=== PATIENT | female | born 1935 | race Caucasian/White ===

== ENCOUNTER 2020-10-12 18:56 | Emergency (ER) | payer MEDICARE, SELFPAY ==
[2020-10-12 19:17] VITALS: BP 120/96; PULSE 93; RESP 26; TEMP 36.6; O2SAT 96
--- NOTE | 2020-10-12 19:31 | ED.GENADULT ---
HPI - General Adult General Chief complaint: Wound/Laceration Stated complaint: chest pain Time Seen by Provider: 10/12/20 19:10 Source: patient Mode of arrival: ambulatory Limitations: no limitations History of Present Illness HPI narrative: 85-year-old [facility] of [facility] and chest pain. Patient notes that she has shingles and over the last day or so had a rash develop. Patient was seen at an outside facility for chest pain, now likely due to the shingles. Patient was worked up and evaluated and discharged. She even notes that when she was in the ambulance she started to develop itching. Patient states while at home the rash did develop and that is when she came in here to be seen again. Related Data Home Medications Medication Instructions Recorded Confirmed albuterol sulfate INHALATION 10/12/20 10/12/20 atorvastatin 10/12/20 glimepiride mg 10/12/20 lorazepam 10/12/20 omeprazole 10/12/20 triamcinolone acetonide applic TOPICAL 10/12/20 Allergies Allergy/AdvReac Type Severity Reaction Status Date / Time ibuprofen Allergy Severe Nausea and Unverified 10/12/20 19:54 Vomiting codeine Allergy Unknown Other Verified 10/12/20 19:54 Review of Systems Review of Systems: Narrative: CONSTITUTIONAL: Denies fever, chills, or sweats. EYES: Denies visual changes, redness, or discharge. ENT: Denies rhinorrhea, congestion, sore throat, or otalgia. CARDIOVASCULAR: Denies chest pain, palpitations, or edema. RESPIRATORY: Denies cough or dyspnea. GASTROINTESTINAL: Denies abdominal pain, nausea, vomiting, or diarrhea. GENITOURINARY: Denies dysuria or hematuria. SKIN: Positive for vesicular rash. MUSCULOSKELETAL: Denies back pain, joint pain, or myalgia. NEUROLOGIC: Denies headache, numbness, dizziness, or weakness. PSYCHIATRIC: Denies anxiety or depression. [facility] Family History Family History Mother Hypertension Family history of diabetes mellitus in first degree relative Father Family history of coronary artery disease Sibling Family history of malignant neoplasm of breast in first degree relative Social History Social History Smoking status: Never smoker Alcohol intake: current Exam Narrative: Exam Narrative: GENERAL: Well-appearing, well-nourished, and in no acute distress. HEAD: Normocephalic, atraumatic. EYES: PERRLA and EOMI. ENT: Nares clear, no rhinorrhea or epistaxis. Mucous membranes moist. Oropharynx without tonsillar hypertrophy exudate or other lesions. Bilateral TMs pearly vivas nonbulging NECK: Supple. No adenopathy or masses. No carotid bruits or JVD CHEST: Clear to auscultation. No respiratory distress. No wheezes rales or rhonchi. Vesicular rash noted over the right breast. HEART: Regular rate and rhythm. No murmur heard. Normal peripheral pulses. ABDOMEN: Soft, nontender, nondistended, normal active bowel sounds. EXTREMITIES: Normal range of motion. No edema. SKIN: Warm, dry, no rash. Vesicular rash over the right mid back and right breast NEURO: No focal deficits. Alert and oriented x3. PSYCH: Normal mood and affect. Course Vital Signs Vital signs: Vital Signs Temperature 36.6 C 10/12/20 19:17 Pulse Rate 93 10/12/20 19:17 Respiratory Rate 26 H 10/12/20 19:17 Blood Pressure 120/96 H 10/12/20 19:17 Pulse Oximetry 96 10/12/20 19:17 Temperature 36.6 C 10/12/20 19:17 Pulse Rate 93 10/12/20 19:17 Respiratory Rate 26 H 10/12/20 19:17 Blood Pressure 120/96 H 10/12/20 19:17 Pulse Oximetry 96 10/12/20 19:17 Medical Decision Making [facility] Narrative Medical decision making narrative: In brief this is an 85-year-old female who presented to the emergency department with complaints of rash and severe pain. Rashes consistent with shingles. Patient given symptomatic medications. She will be given
[2020-10-12] MEDS: oxyCODONE/ACETAMINOPHEN (*CRX) 5-325 MG TABLET 1 TABLET PO (19:35)
[2020-10-12] MEDS: predniSONE 20 MG TABLET 40 MG PO (19:35)
[2020-10-12] MEDS: GABAPENTIN 300 MG CAPSULE PO (19:54)
[2020-10-12] MEDS: valACYclovir HCL 500 MG TABLET 1000 MG PO (19:54)
== END 2020-10-12 20:20 | disposition home or self-care (01) ==
PROVIDERS: Emergency Provider Emergency Medicine; PCP Internal Medicine
DX: B02.9 Zoster without complications (principal)
CPT/HCPCS: 99283; A9270; J7512

== ENCOUNTER 2020-10-30 10:46 | Emergency (ER) | payer MEDICARE, SELFPAY ==
[2020-10-30] VITALS (28 sets, daily range): BP systolic 113–249; BP diastolic 66–123; PULSE 54–79; RESP 10–22; TEMP 36.7; O2SAT 95–99
--- NOTE | ~2020-10-30 | XR_ITS ---
EXAMINATION: XR chest 1V portable INDICATION: Chest pain, shingles TECHNIQUE: Portable AP chest at 1128 hours COMPARISON: 05/09/2013 FINDINGS: There are minimal airspace opacities of the lung bases. No pleural effusion or pneumothorax is identified. The cardiomediastinal silhouette is normal. There is mild osteoarthritis of the shoul ders. IMPRESSION: 1. Bibasilar airspace opacities, consistent with atelectasis versus pneumonia. Reviewed, dictated and finalized at location A. E TECHNICIAN
--- NOTE | 2020-10-30 10:58 | PC.NURSE ---
patient arrives to er with daughter crying and yelling that she is in pain from shingles. was seen here a few weeks ago for same and given gabapentin, norco and valtrex. patient reports that she took all medications and is still in pain like someone is stabbing me daughter became hostile and states that they will not leave until patient is better
[2020-10-30 11:23] LABS: Basophils Absolute Auto 0.1 K/mm3 (0.0-0.1); Basophils Percent Auto 0.7 % (0.2-1.2); Eosinophils Absolute Auto 0.1 K/mm3 (0-0.3); Eosinophils Percent Auto 0.7 % (0-4.4); Immature Granulocyte Absolute 0.02 K/mm3 (0.00-0.031); Immature Granulocyte Percent A 0.3 % (0-0.5); Lymphocytes Absolute Auto 2.83 K/mm3 (0.9-3.2); Lymphocytes Percent Auto 41.3 % (18.3-44.2); Mean Corpuscular HGB Conc 34.7 g/dl (32-36); Mean Corpuscular Volume 92.1 fl (80-100); Mean Platelet Volume 9.9 fl (7.4-10.4); Monocytes Absolute Auto 0.5 K/mm3 (0.1-0.6); Monocytes Percent Auto 7.6 % (2.6-8.5); Neutrophils Absolute Auto 3.4 K/mm3 (1.3-6.7); Neutrophils Percent Auto 49.4 % (45.5-73.1); Platelet Count Result 234 k/mm3 (150-375); Red Blood Count 5.32 M/mm3 (4.2-5.4); Red Cell Distribution Width 14.8 % (11.5-14.5); White Blood Count 6.9 K/mm3 (4.5-10.0)
[2020-10-30] MEDS: diazePAM INJ (*CRX) 10 MG/2 ML SYRINGE 5 MG IV PUSH (11:31)
[2020-10-30] MEDS: SODIUM CHLORIDE 0.9% IV 1,000 ML 999 ML IV CONT ×2 (11:32→13:40)
[2020-10-30 11:35] LABS: Anion Gap 7 mmol/L (8-16); Blood Urea Nitrogen 18 mg/dL (7-17); Calcium 9.3 mg/dL (8.4-10.2); Carbon Dioxide 30 mmol/L (22-30); Chloride 98 mmol/L (98-107); Estimated CRCL calculation 51 ml/min; Estimated Glomerular Filt Rate > 60; Glucose 253 mg/dL (65-105); Potassium 4.2 mmol/L (3.4-5.0); Sodium 135 mmol/L (137-145)
[2020-10-30 12:23] LABS: Hemoglobin A1C 8.5 % (<5.7)
[2020-10-30] MEDS: LIDOCAINE 5% PATCH 1 PATCH TRANSDERM (12:58)
[2020-10-30 13:04] LABS: Add Urine Microscopic? YES; Appearance Urine Clear (Clear); Bilirubin Urine Negative (Negative); Blood Urine Negative (Negative); Color Urine Yellow (Yellow); Glucose Urine UA Negative (Negative); Ketones Urine Negative (Negative); Leukocyte Esterase Ur Negative LEU/UL (Negative); Mucus Urine Rare /lpf; Nitrate Urine Negative (Negative); Protein Urine 1+ mg/dL (Negative); RBC Urine 0-2 /hpf (0-2); Squamous Epithelial Cell Urine Occasional /hpf (Few); WBC Urine 0-3 /hpf
[2020-10-30 13:17] LABS: Specific Grav Ur 1.031 (1.001-1.035)
[2020-10-30] MEDS: KETOROLAC 15 MG/ML VIAL (*BKC) 10 MG IV PUSH (13:39)
--- NOTE | 2020-10-30 13:45 | ED.GENADULT ---
HPI - General Adult General Chief complaint: Wound/Laceration Stated complaint: SHINGLE PAIN Time Seen by Provider: 10/30/20 10:52 Source: patient, family and old records reviewed Mode of arrival: ambulatory Limitations: no limitations History of Present Illness HPI narrative: Patient is an 85-year-old female who presents to emergency department for evaluation of intensifying pain to the right breast and right thoracic region where she had shingles which is beginning to resolve with scabbed over areas at this time in the last 2 days the pain is intensified to a sharp burning constant pain patient has been taking hydrocodone but notes that it is not helping at this time. Patient denies other complaints or illness patient notes that her medications at home consist of aspirin that she takes once weekly Related Data Home Medications Medication Instructions Recorded Confirmed albuterol sulfate INHALATION 10/12/20 10/12/20 atorvastatin 10/12/20 glimepiride mg 10/12/20 lorazepam 10/12/20 omeprazole 10/12/20 triamcinolone acetonide applic TOPICAL 10/12/20 Allergies Allergy/AdvReac Type Severity Reaction Status Date / Time ibuprofen Allergy Severe Nausea and Unverified 10/30/20 11:03 Vomiting codeine Allergy Unknown Other Verified 10/30/20 11:03 Review of Systems Review of Systems: All systems reviewed & are unremarkable except as noted in HPI and below PMFSH Past Medical History Medical History (Updated 10/30/20 @ 15:37 by Kai Logan PA-C) Diabetes mellitus Obesity Shingles Family History Family History Mother Hypertension Family history of diabetes mellitus in first degree relative Father Family history of coronary artery disease Sibling Family history of malignant neoplasm of breast in first degree relative Social History Social History Smoking status: Never smoker Alcohol intake: current Exam Narrative: Exam Narrative: GENERAL: Well-appearing, obese, and uncomfortable in no acute distress. HEAD: Normocephalic, atraumatic. EYES: PERRLA and EOMI. ENT: Nares clear, no rhinorrhea or epistaxis. Mucous membranes moist. CHEST: Clear to auscultation. No respiratory distress. No wheezes rales or rhonchi HEART: Regular rate and rhythm. No murmur heard. Normal peripheral pulses. ABDOMEN: Soft, nontender, nondistended, normal active bowel sounds. EXTREMITIES: Normal range of motion. No edema. SKIN: Warm, dry, no rash. Resolving shingles rash to the right breast and upper thoracic region with some scabbed over lesions no cellulitic changes or other concerning findings at this time NEURO: No focal deficits. Alert and oriented x3. PSYCH: Normal mood and affect. Course Course Emergency Course: Patient evaluated in the emergency department was hydrated and given medications with drastic improvement in discomfort patient will be sent home with instructions for continued pain management advised to be compliant with her medications to follow with primary care on Sunday family will help facilitate this Vital Signs Vital signs: Vital Signs Temperature 98.0 F 10/30/20 10:52 Pulse Rate 79 10/30/20 10:52 Respiratory Rate 18 10/30/20 10:52 Blood Pressure 145/100 H 10/30/20 10:52 Pulse Oximetry 99 10/30/20 10:52 Temperature 98.0 F 10/30/20 10:52 Pulse Rate 76 10/30/20 15:30 Respiratory Rate 18 10/30/20 15:30 Blood Pressure 116/66 10/30/20 15:16 Pulse Oximetry 96 10/30/20 15:30 Medical Decision Making [facility] Narrative Medical decision making narrative: Patient with symptoms likely attributed to postherpetic neuralgia pain syndrome patient will be sent home with additional medications advised to continue her medications ABCs and vital signs intact and stable patient was given pain medication hydration and antihypertensive in the emergency department with im
[2020-10-30] MEDS: hydrALAZINE HCL 20 MG/ML VIAL 10 MG IV PUSH (15:15)
[2020-10-31 17:17] LABS: SARS-CoV-2 RNA PCR Negative
== END 2020-10-30 15:50 | disposition home or self-care (01) ==
PROVIDERS: Emergency Medicine Emergency Medical Services; Emergency Provider Family Medicine; PCP Internal Medicine
DX: B02.9 Zoster without complications (principal); Z20.822 Contact with and (suspected) exposure to COVID-19; E11.9 Type 2 diabetes mellitus without complications; E66.9 Obesity, unspecified; Z68.32 Body mass index [BMI] 32.0-32.9, adult
CPT/HCPCS: 36415; 51701; 71045; 80048; 81001; 83036; 85025; 96361; 96365; 96375; 99284; A9270; C9803; J0131; J0360; J1885; J3360; J7030; U0003; U0005

== ENCOUNTER 2022-11-24 08:26 | Outpatient (CLI) | payer MEDICARE, SELFPAY ==
--- NOTE | ~2022-11-24 | CT_ITS ---
EXAMINATION: CT abdomen pelvis wo con DATE: 11/24/2022 08:51 INDICATION: Abdominal pain TECHNIQUE: Computed tomography (CT) of the abdomen and pelvis was performed without intravenous contr ast. The dose-length product (DLP) was 706.58 mGy-cm. Automated exposure control and iterative recons truction technique were employed. COMPARISON: None FINDINGS: Minimal dependent atelectasis is present in the lung bases. The heart size is normal. There is calcified coronary artery atherosclerosis. The gallbladder is surgically absent. The liver, splee n, and adrenal glands are normal. There is moderate atrophy of the pancreas. The right kidney is unre markable. There is a 5 mm cyst of the left kidney. There is calcified atherosclerosis of the aorta an d many of the other arteries. No pathologically enlarged abdominal or pelvic lymph nodes are identifi ed. No free intraperitoneal gas or evidence of bowel obstruction. There is mild lumbar spondylosis. IMPRESSION: 1. No CT correlate for the patient's symptoms. Reviewed, dictated and finalized at location B. ORKING SPECIALIST
== END 2022-11-24 08:27 ==
LOC: MICIMG 08:27
PROVIDERS: PCP Internal Medicine; Visit Provider Internal Medicine
DX: R10.9 Unspecified abdominal pain (principal)
CPT/HCPCS: 74176

== ENCOUNTER 2023-02-06 11:36 | Outpatient (CLI) | payer MEDICARE, SELFPAY ==
--- NOTE | ~2023-02-06 | CT_ITS ---
EXAMINATION: CT brain wo con DATE: 02/06/2023 12:00 INDICATION: Headache, unspecified. TECHNIQUE: Computed tomography (CT) of the head was performed without intravenous contrast. The mA wa s adjusted according to patient size. Iterative reconstruction technique was employed. The dose-lengt h product was 599.57 mGy-cm. COMPARISON: None FINDINGS: There is no intracranial hemorrhage, acute infarction, or abnormal intracranial mass lesion . The ventricles are normal in size. There are likely changes of ocular lens replacement surgeries. T he paranasal sinuses are clear. The mastoid air cells are normal. IMPRESSION: 1. Normal brain. Reviewed, dictated and finalized at location A. IMPRESSION: 1. Normal brain.
== END 2023-02-06 11:37 ==
LOC: MICIMG 11:37
PROVIDERS: PCP Internal Medicine; Visit Provider Internal Medicine
DX: R51.9 Headache, unspecified (principal)
CPT/HCPCS: 70450

== ENCOUNTER 2023-09-29 10:53 | Emergency (ER) | payer MEDICARE, SELFPAY ==
[2023-09-29] VITALS (22 sets, daily range): BP systolic 151–184; BP diastolic 79–117; PULSE 72–93; RESP 13–16; TEMP 36.3; O2SAT 92–99
--- NOTE | ~2023-09-29 | CT_ITS ---
EXAMINATION: CT abdomen pelvis w con DATE: 09/29/2023 15:55 INDICATION: Dizziness. Nausea and vomiting. Elevated liver function tests. TECHNIQUE: Computed tomography (CT) of the abdomen and pelvis was performed with 100 cc Omnipaque 350 intravenous contrast. The dose-length product was 1177.69 mGy-cm. Automated exposure control and ite rative reconstruction technique were employed. COMPARISON: CT dated 11/24/2022 FINDINGS: There is dependent atelectasis. Cardiomegaly. No significant pleural or pericardial effusio n. There are multiple cystic masses of the pancreatic body and tail, largest measuring 2.3 cm. Status post cholecystectomy. The liver, spleen, adrenal glands are unremarkable. There is bilateral r enal atrophy. There is a small subcentimeter cyst of the left kidney. There is atherosclerosis of the aorta without aneurysm. No lymphadenopathy. Nonobstructive bowel pattern. Moderate lower thoracic an d lumbar spondylosis. IMPRESSION: 1. 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 The differential diagnosis includes pseudo cyst, intraductal papillary mucinous neoplasm (IPMN), mucinous cystic neoplasm (MCN), metastatic dise ase and the less common serous cystadenoma and neuroendocrine tumor. Reviewed, dictated and finalized at location A. T SYSTEM DIRECTOR IMPRESSION: 1. 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 The differential tato gnosis includes pseudocyst, intraductal papillary mucinous neoplasm (IPMN), muc inous cystic neoplasm (MCN), metastatic disease and the less common serous cyst adenoma and neuroendocrine tumor.
--- NOTE | ~2023-09-29 | CT_ITS ---
EXAMINATION: CT brain wo con DATE: 09/29/2023 15:55 INDICATION: Dizziness. TECHNIQUE: Computed tomography (CT) of the head was performed without intravenous contrast. The dose- length product was 529.67 mGy-cm. Automated exposure control and iterative reconstruction technique w ere employed. COMPARISON: CT dated 02/06/2023 FINDINGS: Mild generalized atrophy. There are scattered mild periventricular and subcortical white ma tter changes, most likely related to small vessel ischemic disease (microangiopathy). No acute intrac ranial hemorrhage, infarction, mass or mass effect. No ventriculomegaly or midline shift basilar cist erns are patent. IMPRESSION: 1. No acute intracranial abnormality. Reviewed, dictated and finalized at location A. CELL SYSTEMS ENGINEER
--- NOTE | 2023-09-29 11:23 | ECG_ITS ---
Measurements Intervals [place] Rate: 75 P: 82 [place]: 275 QRS: -36 QRSD: 93 T: -82 QT: 378 QTc: 423 Interpretive Statements ELECTRONIC ATRIAL PACEMAKER MARKED LEFT AXIS DEVIATION [QRS AXIS < -30] LEFT VENTRICULAR HYPERTROPHY AND ST-T CHANGE [VOLTAGE CRITERIA PLUS ST/T ABNORMALITY] DIFFUSE T-WAVE INVERSION ANTERIORLY LATERALLY AND INFERIORLY, CONSIDER ISCHEMIA NO PREVIOUS ECG AVAILABLE FOR COMPARISON Electronically Signed On 09-29-2023 19:51:39 DIRECTOR OF VOCATIONAL TRAINING by Jacy Moody M.D.
[2023-09-29 11:42] LABS: Basophils Absolute Auto 0.1 K/mm3 (0.0-0.1); Basophils Percent Auto 0.7 % (0.2-1.2); Eosinophils Absolute Auto 0.2 K/mm3 (0-0.3); Eosinophils Percent Auto 2.3 % (0-4.4); Hematocrit 45.7 % (37.0-47.0); Hemoglobin 14.7 g/dL (12.0-15.0); Immature Granulocyte Absolute 0.02 K/mm3 (0.00-0.031); Immature Granulocyte Percent A 0.3 % (0-0.5); Lymphocytes Absolute Auto 2.89 K/mm3 (0.9-3.2); Lymphocytes Percent Auto 39.9 % (18.3-44.2); Mean Corpuscular HGB Conc 32.2 g/dl (32-36); Mean Corpuscular Hemoglobin 30.3 pg (26-34); Mean Corpuscular Volume 94.2 fl (80-100); Monocytes Absolute Auto 0.5 K/mm3 (0.1-0.6); Monocytes Percent Auto 7.3 % (2.6-8.5); Neutrophils Absolute Auto 3.6 K/mm3 (1.3-6.7); Neutrophils Percent Auto 49.5 % (45.5-73.1); Platelet Count Result 223 k/mm3 (150-375); Red Blood Count 4.85 M/mm3 (4.2-5.4); Red Cell Distribution Width 13.3 % (11.5-14.5); White Blood Count 7.2 K/mm3 (4.5-10.0)
[2023-09-29 11:56] LABS: Alanine Aminotransferase 37 U/L (6-35); Albumin Level 4.1 g/dL (3.5-5.1); Alkaline Phosphatase 145 U/L (38-126); Anion Gap 8 mmol/L (8-16); Aspartate Amino Transferase 48 U/L (14-36); Bilirubin,Total 2.2 mg/dL (0.2-1.3); Blood Urea Nitrogen 16 mg/dL (7-17); Calcium 9.1 mg/dL (8.4-10.2); Carbon Dioxide 25 mmol/L (22-30); Chloride 108 mmol/L (98-107); Estimated CRCL calculation 38 ml/min; Estimated Glomerular Filt Rate 59; Glucose 118 mg/dL (65-110); Potassium 4.2 mmol/L (3.4-5.0); Sodium 141 mmol/L (137-145)
--- NOTE | 2023-09-29 15:03 | ED.DIZZY ---
HPI - Dizziness General Chief Complaint: Dizziness <Kailey Casper MD - Last Filed: 09/30/23 17:27> Stated Complaint: dizzy <Kailey Casper MD - Last Filed: 09/30/23 17:27> Time Seen by Provider: 09/29/23 14:16 <Kailey Casper MD - Last Filed: 09/30/23 17:27> Source: patient, RN notes reviewed and old records reviewed <Kailey Casper MD - Last Filed: 09/30/23 17:27> Mode of arrival: wheelchair <Kailey Casper MD - Last Filed: 09/30/23 17:27> History of Present Illness HPI Narrative: This is an 88 year old female with history of multiple medical problems who presents for evaluation of sickness. She states has had been sick for over 1 week. She reports nausea for 1 week. She also reports dizziness for over 1 week. She reports cough, congestion, headache. She states she does not feel well . Poor historian. <Kailey Casper MD - Last Filed: 09/30/23 17:27> Related Data Home Medications: Home Medications Medication Instructions Recorded Confirmed albuterol sulfate 90 mcg/actuation inhalation 10/12/20 10/12/20 aerosol inhaler atorvastatin 80 mg tablet 10/12/20 glimepiride 2 mg tablet mg 10/12/20 lorazepam 0.5 mg tablet 10/12/20 omeprazole 20 mg capsule,delayed 10/12/20 release triamcinolone acetonide 0.1 % applic topical 10/12/20 topical cream <Kailey Casper MD - Last Filed: 09/30/23 17:27> Allergies/Adverse Reactions: Allergies Allergy/AdvReac Type Severity Reaction Status Date / Time ibuprofen Allergy Severe Nausea and Unverified 09/29/23 15:07 Vomiting codeine Allergy Unknown Other Verified 09/29/23 15:07 <Kailey Casper MD - Last Filed: 09/30/23 17:27> Review of Systems Constitutional: Constitutional: Denies weakness <Kailey Casper MD - Last Filed: 09/30/23 17:27> ENT: Reports dizziness <Kailey Casper MD - Last Filed: 09/30/23 17:27> Cardiovascular: Cardiovascular: Denies syncope, Denies rapid heart rate, Denies irregular heart rhythm, Denies leg edema and Denies dyspnea <Kailey Casper MD - Last Filed: 09/30/23 17:27> Respiratory: Respiratory: Denies chest congestion, Denies hemoptysis, Denies excessive phlegm production and Denies dyspnea <Kailey Casper MD - Last Filed: 09/30/23 17:27> Gastrointestinal: Gastrointestinal: Denies abdominal pain, Denies hematochezia, Denies diarrhea, Reports nausea and Denies vomiting <Kailey Casper MD - Last Filed: 09/30/23 17:27> Genitourinary: Genitourinary: Denies hematuria and Denies dysuria <Kailey Casper MD - Last Filed: 09/30/23 17:27> Musculoskeletal: Musculoskeletal: Denies joint swelling, Denies loss of height and Denies muscle weakness <Kailey Casper MD - Last Filed: 09/30/23 17:27> Neurologic: Reports vertigo, Reports dizziness, Denies syncope, Denies focal weakness and Denies weakness <Kailey Casper MD - Last Filed: 09/30/23 17:27> PMFSH Past Medical History Medical History: Medical History Anxiety Diabetes mellitus Hyperlipemia Hypertension Obesity Shingles <Kailey Casper MD - Last Filed: 09/30/23 17:27> Surgical History Surgical History: Surgical History H/O: hysterectomy History of appendectomy <Kailey Casper MD - Last Filed: 09/30/23 17:27> Family History Family History: Family History Mother Hypertension Family history of diabetes mellitus in first degree relative Father Family history of coronary artery disease Sibling Family history of malignant neoplasm of breast in first degree relative <Kailey Casper MD - Last Filed: 09/30/23 17:27> Social History Social History: Social History Smoking status: Never smoker Alcohol intake: current <Kailey Guerrero
[2023-09-29] MEDS: ONDANSETRON INJ 4 MG/2 ML VIAL IV PUSH (15:21)
[2023-09-29] MEDS: SODIUM CHLORIDE 0.9% IV 1,000 ML 999 ML IV CONT (15:21)
[2023-09-29 15:45] LABS: Appearance Urine Cloudy (Clear); Bacteria Urine 4+ /hpf; Bilirubin Urine Negative (Negative); Blood Urine Negative (Negative); Color Urine Yellow (Yellow); Glucose Urine UA Negative (Negative); Ketones Urine Negative (Negative); Leukocyte Esterase Ur 2+ LEU/UL (Negative); Nitrate Urine Negative (Negative); Non Pathogenic Casts 0-2; Protein Urine Negative (Negative); RBC Urine 0-2 /hpf (0-2); Specific Grav Ur 1.017 (1.001-1.035); Squamous Epithelial Cell Urine Moderate /hpf (Few); pH Urine 5.5 (5.0-9.0)
[2023-09-29 16:02] LABS: Influenza A QL RT-PCR Negative (Negative); Influenza B QL RT-PCR Negative (Negative); RSV RNA, RT-PCR Negative (Negative); SARS-CoV-2 RNA PCR Negative (Negative)
[2023-09-29 16:03] LABS: Add Urine Microscopic? YES
[2023-09-29] MEDS: MECLIZINE HCL 25 MG TABLET PO (16:20)
[2023-09-29 17:56] LABS: Hepatitis B Surface Antigen Negative (Negative)
[2023-09-29 18:02] LABS: HAV RESULT Negative (Negative); Hepatitis B Core IgM Result Negative (Negative)
[2023-09-29] MEDS: PROMETHAZINE HCL 25 MG/ML AMPUL 12.5 MG IV PUSH (18:09)
[2023-09-29 18:13] LABS: Hepatitis C Virus Antibody Negative (Negative)
[2023-09-29] MEDS: SODIUM CHLORIDE 0.9% IV 50 ML (18:20)
--- NOTE | 2023-09-29 20:01 | PC.NURSE ---
Patient able to ambulate at baseline with no dizziness.
--- NOTE | 2023-09-29 20:07 | PC.NURSE ---
production checker cab called for patient ride home.
== END 2023-09-29 20:12 | disposition home or self-care (01) ==
PROVIDERS: General Practice; Emergency Provider Emergency Medicine; PCP Internal Medicine
DX: R42 Dizziness and giddiness (principal); F41.9 Anxiety disorder, unspecified; E11.9 Type 2 diabetes mellitus without complications; E78.5 Hyperlipidemia, unspecified; I10 Essential (primary) hypertension; R82.998 Other abnormal findings in urine; Z20.822 Contact with and (suspected) exposure to COVID-19; R11.0 Nausea
CPT/HCPCS: 36415; 70450; 74177; 80053; 80074; 81001; 85025; 87086; 87088; 87637; 93005; 96361; 96374; 96375; 99284; A9270; J2405; J2550; J7030; Q9967

== ENCOUNTER 2023-10-14 20:22 | Inpatient (IN) | payer MEDICARE, SELFPAY ==
[2023-10-14] VITALS (20 sets, daily range): BP systolic 155–204; BP diastolic 89–98; PULSE 79–98; RESP 17–36; TEMP 37.3–39.4; O2SAT 93–98
--- NOTE | ~2023-10-14 | XR_ITS ---
Portable chest x-ray Comparison: 10/17/2023 Clinical History: Abnormal chest x-ray Findings: There is hazy airspace disease the bilateral lung bases and right upper lobe. Cardiomedia stinal silhouette is stable, with pacemaker device. Bones and soft tissues are unremarkable. Impression: Multifocal hazy airspace disease, as above. Correlate for pulmonary edema versus multifocal infection . Reviewed, dictated and finalized at [facility]. RETTE ROLLER Impression: Multifocal hazy airspace disease, as above. Correlate for pulmonary edema versu s multifocal infection.
--- NOTE | ~2023-10-14 | XR_ITS ---
EXAMINATION: XR chest 1V portable Exam Date/Time: 10/16/2023 21:10 INCOME TAX AUDITOR HISTORY: congestion and coarse breath sounds Comparison: 10/14/2023. RESULT: Lines, tubes, and devices: Left chest pacer with intact leads. Lungs and pleura: Patchy areas of segmental and subsegmental airspace disease in the right upper and bilateral mid and lower lungs. Mild diffuse reticular opacities, with indistinct vessels Cardiomediastinal silhouette: Stable. Other: No acute osseous or upper abdominal finding. IMPRESSION: Pulmonary opacities may represent pulmonary edema or multifocal pneumonia. Reviewed, dictated and finalized at location K. ME TAX AUDITOR
--- NOTE | ~2023-10-14 | CT_ITS ---
EXAMINATION: CTA chest PE protocol DATE: 10/18/2023 09:29 INDICATION: Acute hypoxic respiratory failure. TECHNIQUE: Computed tomography angiography (CTA) of the chest was performed with 100 mL Omnipaque-350 intravenous contrast timed to evaluate the pulmonary arteries. Coronal maximum intensity projection 3D-reconstructions were created by the technologist. Automated exposure control and iterative reconst ruction technique were employed. The dose-length product was 706.45 mGy-cm. COMPARISON: CT abdomen and pelvis 09/29/2023, 11/24/22 FINDINGS: There are patchy airspace opacities with air bronchograms involving all lobes, consistent w ith pneumonia. No pleural effusion. Cardiomegaly is noted. There are coronary artery calcifications. No pericardial effusion. There is no pulmonary embolus. 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 For example, a right hilar node measures 17 x 15 mm. There is a left chest wall pacer wi th leads in the right atrium and right ventricle. The liver demonstrates surface nodularity, consiste nt with cirrhosis. There are changes of cholecystectomy. There are multiple masses in left upper quad rant of the abdomen near the pancreas measuring up to 2.4 x 2.1 cm. There is moderate thoracic spondy losis. There is mild chronic height loss of multiple vertebral bodies. IMPRESSION: 1. No pulmonary embolus. 2. Multifocal pneumonia involving all lobes. 3. Masses in left upper quadrant of the abdomen suspicious for malignancy. The differential diagnosis includes lymphoma and colt metastatic disease. 4. Cirrhosis of the liver. 5. Mild chest lymphadenopathy, which may be reactive lymphadenopathy and/or metastatic disease. Reviewed, dictated and finalized at location A. Y DEPARTMENT MANAGER IMPRESSION: 1. No pulmonary embolus. 2. Multifocal pneumonia involving all lobes. 3. Masses in left upper quadrant of the abdomen suspicious for malignancy. The differential diagnosis includes lymphoma and colt metastatic disease. 4. Cirrhosis of the liver. 5. Mild chest lymphadenopathy, which may be reactive lymphadenopathy and/or met astatic disease.
--- NOTE | ~2023-10-14 | CT_ITS ---
EXAMINATION: CT abdomen pelvis w con DATE: 10/19/2023 14:27 INDICATION: Newly found left upper quadrant masses concerning for malignancy. TECHNIQUE: Computed tomography (CT) of the abdomen and pelvis was performed with 100 mL Omnipaque-350 intravenous contrast. Automated exposure control and iterative reconstruction technique were employe d. The dose-length product was 1305.43 mGy-cm. COMPARISON: CT abdomen pelvis dated 09/29/2023 and 11/24/[address] chest dated 10/18/2023 FINDINGS: Interval progression of consolidation in the dependent aspect of the bilateral lower lobes and lingul a and patchy airspace opacities in the visualized bilateral upper and right middle lobes consistent w ith pneumonia. Cardiomegaly. No pericardial effusion. Dual-lead cardiac pacemaker leads terminating a t the right atrial appendage and at the apex of the right ventricle. Mild mediastinal and bilateral h ilar lymphadenopathy. Liver surface nodularity consistent with cirrhosis. Cholecystectomy clips the g allbladder fossa. Again noted is a 3.6 x 2.3 cm and 1.6 x 1.5 cm masses positioned between the tail o f the pancreas and the splenic hilum. These both appear slightly increased in size when compared with the study from 09/29/2023 at which time they measured 3.1 x 1.9 cm and 1.5 x 1.4 cm respectively. Bi lateral adrenal glands and kidneys are normal. Gas and a Cast catheter within the partially decompre ssed bladder. The uterus is not identified and has likely been surgically resected. Bowels are unrema rkable with no obstruction. There is calcified atherosclerosis of the aorta and many of the other art eries. Small bilateral fat-containing inguinal hernias. No free intraperitoneal gas or fluid. No path ologically enlarged abdominal or pelvic lymphadenopathy. Mild lumbar and moderate lower thoracic spon dylosis. Mild to moderate bilateral hip osteoarthritis. IMPRESSION: 1. Interval increase in size of a couple masses the left upper quadrant situated between the tail the pancreas and the splenic hilum which are nonspecific but concerning for malignancy including lymphom a, metastatic disease or potentially pancreatic neoplasm arising from the tail. The mass is again not readily amenable to percutaneous biopsy but to abut the fundus of the stomach and could consider end oscopic ultrasound guided biopsy. 2. Multifocal pneumonia involving all lobes of both lungs most prominent in the bilateral lower lobes . 3. Mild mediastinal and bilateral hilar lymphadenopathy which could be reactive or due to metastatic disease or lymphoma. 4. Cirrhosis. Reviewed, dictated and finalized at location A. ER ANALYST IMPRESSION: 1. Interval increase in size of a couple masses the left upper quadrant situate d between the tail the pancreas and the splenic hilum which are nonspecific but concerning for malignancy including lymphoma, metastatic disease or potentiall y pancreatic neoplasm arising from the tail. The mass is again not readily amen able to percutaneous biopsy but to abut the fundus of the stomach and could con mine safety manager endoscopic ultrasound guided biopsy. 2. Multifocal pneumonia involving all lobes of both lungs most prominent in the bilateral lower lobes. 3. Mild mediastinal and bilateral hilar lymphadenopathy which could be reactive or due to metastatic disease or lymphoma. 4. Cirrhosis.
--- NOTE | ~2023-10-14 | XR_ITS ---
EXAMINATION: XR chest 1V portable INDICATION: Cough TECHNIQUE: Portable AP chest at 2147 hours COMPARISON: 10/30/2020 FINDINGS: The lungs are free of acute opacities. No pleural effusion or pneumothorax. The cardiomedia stinal silhouette is normal. There is been interval insertion of a dual lead pacemaker of the left ch est wall. There is mild osteoarthritis of the shoulders. IMPRESSION: 1. No acute cardiopulmonary abnormality. Reviewed, dictated and finalized at location F. FLOW REGULATOR
--- NOTE | ~2023-10-14 | XR_ITS ---
EXAMINATION: XR chest 1V portable Exam Date/Time: 10/17/2023 22:21 ENGINEER SOILS HISTORY: decline in condition Comparison: 10/17/2023 at 3:07 PM. RESULT: Lines, tubes, and devices: Left chest pacer with intact leads. Lungs and pleura: Similar patchy right lung and left mid and lower lung airspace disease with diffus e reticular opacities and indistinct vessels. Cardiomediastinal silhouette: Stable. Other: No acute osseous or upper abdominal finding. IMPRESSION: Unchanged pulmonary opacities, given interval differences in technique, may represent infection and/e armen. Reviewed, dictated and finalized at location K. NEER SOILS IMPRESSION: Unchanged pulmonary opacities, given interval differences in technique, may rep resent infection and/edema.
--- NOTE | ~2023-10-14 | XR_ITS ---
EXAMINATION: XR chest 1V portable DATE: 10/17/2023 15:10 INDICATION: Worsening respiratory status. TECHNIQUE: A single frontal view of the chest was obtained. COMPARISON: Chest single view 10/16/2023, CT abdomen and pelvis 09/29/2023 FINDINGS: There are patchy airspace opacities in all right lung zones and left mid and lower lung zon es. No pleural effusion or pneumothorax. Cardiomegaly is noted. There is a left chest wall pacer with leads in the right atrium and right ventricle. Surgical clips in the right upper quadrant are likely from cholecystectomy. IMPRESSION: 1. Stable diffuse lung disease, consistent with pneumonia. 2. Cardiomegaly. Reviewed, dictated and finalized at location A. DRY OPERATOR FINISHING
--- NOTE | ~2023-10-14 | CT_ITS ---
EXAMINATION: CT brain wo con INDICATION: Altered mental status COMPARISON: 09/29/2023 TECHNIQUE: Standard unenhanced head CT. The dose-length product (DLP) was 605.33 mGy-cm. The mA was a djusted according to patient size. Iterative reconstruction technique was employed. FINDINGS: No acute intraparenchymal hemorrhage. No evidence of mass lesion. No evidence of acute infa rction. There is mild periventricular and subcortical hypodensity probably related to small vessel is chemic disease. There is mild prominence of the sulci and ventricles related to cerebral atrophy. Int racranial calcified cerebral atherosclerosis is noted. No extra-axial collections. No mass effect or midline shift. Changes in the globes are likely from ocular lens surgery. There is mild mucosal thick ening of the paranasal sinuses. IMPRESSION: 1. No acute intracranial abnormality. 2. Age related findings. Reviewed, dictated and finalized at location F. OF MERCHANDISE BUYING
--- NOTE | ~2023-10-14 | XR_ITS ---
Portable chest x-ray Comparison: 10/18/2023 Clinical History: Shortness of breath Findings: There is probable bibasilar atelectatic change and/or minimal pulmonary edema. Cardiomedi astinal silhouette is stable, with pacemaker device. Bones and soft tissues are unremarkable. Impression: Probable mild bibasilar atelectatic change and/or pulmonary edema. Reviewed, dictated and finalized at location . IDE TOOL MAKER Impression: Probable mild bibasilar atelectatic change and/or pulmonary edema.
--- NOTE | 2023-10-14 20:52 | ECG_ITS ---
Measurements Intervals [place] Rate: 98 P: 93 CT: 181 QRS: -49 QRSD: 94 T: -75 QT: 318 QTc: 407 Interpretive Statements SINUS RHYTHM LEFT ANTERIOR FASCICULAR BLOCK VOLTAGE CRITERIA FOR LVH ST-T WAVE ABNORMALITY IN ANTERIOR LEADS- CONSIDER ISCHEMIA BASELINE ARTIFACT- I, II, III, AVR, AVL, AVF, V3-V6 ABNORMAL ECG COMPARED TO ECG 09/29/2023 11:35:43 SINUS RHYTHM NOW PRESENT LEFT ANTERIOR FASCICULAR BLOCK NOW PRESENT Electronically Signed On 10-15-2023 6:53:01 SIGNS SALES REPRESENTATIVE by Emiliano Gould D.O.
[2023-10-14] MEDS: ACETAMINOPHEN 500 MG TABLET 1000 MG PO (21:06)
[2023-10-14] MEDS: SODIUM CHLORIDE 0.9% IV 1,000 ML 999 ML IV CONT (21:06)
[2023-10-14 21:16] LABS: Base Excess ABG -0.3 mEq/l (+/-2.0); Fractional Inspired Oxygen 21 %; HCO3 ABG 23.9 mEq/l (22.0-26.0); Oxygen Content ABG 17.9 %vol (16.0-22.0); Oxygen Saturation ABG 88.6 % (95.0-100.0); PCO2 ABG 37.7 mmHg (35.0-45.0); PO2 ABG 53.6 mmHg (80.0-100.0); PO2 FiO2 Ratio Arterial Blood 2.55 %; Total Hemoglobin 14.8 g/dL (12.0-18.0)
[2023-10-14 21:17] LABS: Oxyhemoglobin 86.2 % THb (90.0-100.0)
[2023-10-14 21:18] LABS: Device ROOM AIR; Modified Allen's Test Pass; Site Drawn RIGHT RADIAL
--- NOTE | 2023-10-14 21:47 | PC.NURSE ---
Attempted to obtain lab work x2, unsuccessful. complaint adjuster notified, told to call phlebotomy, spoke to Opal, she states she will be down in a bit to obtain those.
[2023-10-14 21:53] LABS: Appearance Urine Clear (Clear); Bacteria Urine None Seen /hpf; Bilirubin Urine Negative (Negative); Blood Urine 1+ (Negative); Color Urine Yellow (Yellow); Glucose Urine UA Negative (Negative); Ketones Urine Trace mg/dL (Negative); Leukocyte Esterase Ur Negative LEU/UL (Negative); Nitrate Urine Negative (Negative); Non Pathogenic Casts 0-2; Protein Urine Trace mg/dL (Negative); RBC Urine 0-2 /hpf (0-2); Specific Grav Ur 1.019 (1.001-1.035); Squamous Epithelial Cell Urine None seen /hpf (Few); Urobilinogen Urine 0.2 mg/dL (<2.0); WBC Urine 0-5 /hpf
[2023-10-14 21:58] LABS: Add Urine Microscopic? YES
[2023-10-14 22:04] LABS: Influenza A QL RT-PCR Negative (Negative); Influenza B QL RT-PCR Negative (Negative); RSV RNA, RT-PCR Positive (Negative); SARS-CoV-2 RNA PCR Negative (Negative)
--- NOTE | 2023-10-14 22:09 | PC.NURSE ---
Plebotomy here to draw labs.
[2023-10-14 22:35] LABS: Basophils Absolute Auto 0.1 K/mm3 (0.0-0.1); Basophils Percent Auto 0.4 % (0.2-1.2); Eosinophils Percent Auto 0.1 % (0-4.4); Hemoglobin 12.7 g/dL (12.0-15.0); Immature Granulocyte Absolute 0.11 K/mm3 (0.00-0.031); Immature Granulocyte Percent A 0.9 % (0-0.5); Lymphocytes Absolute Auto 1.11 K/mm3 (0.9-3.2); Lymphocytes Percent Auto 9.5 % (18.3-44.2); Mean Corpuscular HGB Conc 31.8 g/dl (32-36); Mean Corpuscular Hemoglobin 30.1 pg (26-34); Mean Corpuscular Volume 94.8 fl (80-100); Mean Platelet Volume 10.1 fl (7.4-10.4); Monocytes Absolute Auto 0.7 K/mm3 (0.1-0.6); Monocytes Percent Auto 6.3 % (2.6-8.5); Neutrophils Absolute Auto 9.7 K/mm3 (1.3-6.7); Neutrophils Percent Auto 82.8 % (45.5-73.1); Platelet Count Result 149 k/mm3 (150-375); Red Blood Count 4.22 M/mm3 (4.2-5.4); Red Cell Distribution Width 13.5 % (11.5-14.5); White Blood Count 11.7 K/mm3 (4.5-10.0)
[2023-10-14 22:49] LABS: Lipase 14 U/L (23-300); Magnesium 1.5 mg/dL (1.6-2.3)
[2023-10-14 22:51] LABS: Lactic Acid Reflex 1.1 mmol/L (0.7-2.0)
[2023-10-14 22:52] LABS: Alanine Aminotransferase 22 U/L (6-35); Albumin Level 3.3 g/dL (3.5-5.1); Alkaline Phosphatase 130 U/L (38-126); Anion Gap 8 mmol/L (8-16); Aspartate Amino Transferase 29 U/L (14-36); Bilirubin,Total 1.6 mg/dL (0.2-1.3); Blood Urea Nitrogen 10 mg/dL (7-17); Calcium 7.7 mg/dL (8.4-10.2); Carbon Dioxide 24 mmol/L (22-30); Chloride 106 mmol/L (98-107); Estimated Glomerular Filt Rate > 60; Glucose 166 mg/dL (65-110); Potassium 3.6 mmol/L (3.4-5.0); Sodium 138 mmol/L (137-145)
[2023-10-14 23:00] LABS: NT Pro B Type Natriuretic Pept 1010 pg/mL (19.9-100)
[2023-10-14 23:02] LABS: Troponin I < 0.012 ng/mL (0.000-0.034)
[2023-10-14 23:09] LABS: Procalcitonin 0.1 ng/mL
[2023-10-14 23:36] LABS: INR 1.1; Prothrombin Time 14.7 Seconds (11.1-14.7)
[2023-10-15] VITALS (32 sets, daily range): BP systolic 122–166; BP diastolic 48–85; PULSE 72–110; RESP 16–32; TEMP 37–39.3; O2SAT 91–98; BMI 31.9
--- NOTE | 2023-10-15 00:13 | ED.GENADULT ---
HPI - General Adult General Chief complaint: Fever Stated complaint: FEVER, N/V/D, AMS Time Seen by Provider: 10/14/23 20:38 History of Present Illness HPI narrative: Patient a 8-year-old female who presents emergency department with chief complaint of confusion. Patient was recently treated for a urinary tract infection completed antibiotics the patient does had a cough at home and was found to have a temperature of a 103? the patient does not normally require oxygen at home and was hypoxic when EMS was called to the scene Related Data Home Medications Medication Instructions Recorded Confirmed albuterol sulfate 90 mcg/actuation inhalation 10/12/20 10/12/20 aerosol inhaler atorvastatin 80 mg tablet 10/12/20 glimepiride 2 mg tablet mg 10/12/20 lorazepam 0.5 mg tablet 10/12/20 omeprazole 20 mg capsule,delayed 10/12/20 release triamcinolone acetonide 0.1 % applic topical 10/12/20 topical cream Allergies Allergy/AdvReac Type Severity Reaction Status Date / Time ibuprofen Allergy Severe Nausea and Verified 10/14/23 21:05 Vomiting codeine Allergy Unknown Other Verified 10/14/23 21:05 Review of Systems Review of Systems: A 10 system review of systems was completed on the patient and is negative except for what is stated in the HPI. Nursing and ancillary documentation was reviewed. PMFSH Past Medical History Medical History Anxiety Diabetes mellitus Hyperlipemia Hypertension Obesity Shingles Surgical History Surgical History H/O: hysterectomy History of appendectomy Family History Family History Mother Hypertension Family history of diabetes mellitus in first degree relative Father Family history of coronary artery disease Sibling Family history of malignant neoplasm of breast in first degree relative Social History Social History Smoking status: Never smoker Alcohol intake: current Exam Narrative: GENERAL: Well-appearing, well-nourished, and in no acute distress. HEAD: Normocephalic, atraumatic. EYES: PERRLA and EOMI. ENT: Nares clear, no rhinorrhea or epistaxis. Mucous membranes moist. NECK: Supple. CHEST: Clear to auscultation. No respiratory distress. HEART: Regular rate and rhythm. No murmur heard. Normal peripheral pulses. ABDOMEN: Soft, nontender, nondistended, normal active bowel sounds. EXTREMITIES: Normal range of motion. No edema. SKIN: Warm, dry, no rash. NEURO: No focal deficits. Alert and oriented slow to respond somewhat confused. PSYCH: Normal mood and affect. Course Vital Signs Vital signs: Vital Signs Temperature 39.4 C H 10/14/23 20:22 Pulse Rate 98 10/14/23 20:22 Respiratory Rate 27 H 10/14/23 20:22 Blood Pressure 167/98 H 10/14/23 20:22 Pulse Oximetry 97 10/14/23 20:22 Oxygen Delivery Room Air 10/14/23 20:22 Temperature 37.3 C 10/14/23 21:30 Pulse Rate 87 10/14/23 22:15 Respiratory Rate 25 H 10/14/23 22:15 Blood Pressure 190/89 H 10/14/23 21:31 Pulse Oximetry 97 10/14/23 22:15 Oxygen Delivery Nasal Cannula 10/14/23 21:15 Oxygen Flow Rate 2 10/14/23 21:15 Medical Decision Making [facility] Narrative Medical decision making narrative: Differential diagnosis includes pneumonia, UTI, sepsis, RSV, COVID, influenza Laboratory studies showed a positive RSV Chest x-ray showed no pneumonia CT head showed no acute abnormality Vital Signs Vital Signs: Vital Signs Temperature 39.4 C H 10/14/23 20:22 Pulse Rate 98 10/14/23 20:22 Respiratory Rate 27 H 10/14/23 20:22 Blood Pressure 167/98 H 10/14/23 20:22 Pulse Oximetry 97 10/14/23 20:22 Oxygen Delivery Room Air 10/14/23 20:22 Temperature 37.3 C 10/14/23 21:30
--- NOTE | 2023-10-15 00:44 | PC.NURSE ---
THIS RN ATTEMPTED TO CALL CAROLYN, PT DAUGHTER PER PT. DAUGHTER REQUEST. THIS RN ATTEMPTED X2 AND WAS UNSUCCESSFUL.
[2023-10-15 00:57] LABS: Troponin I 0.022 ng/mL (0.000-0.034)
[2023-10-15] MEDS: SODIUM CHLORIDE 0.9% IV 1,000 ML 75 ML IV CONT ×2 (02:10→17:18)
--- NOTE | 2023-10-15 02:25 | ADMGEN ---
This patient, Claudia Mac, was admitted to Medical Room 250-01. Patient/family oriented to hospital policies and general routines including ID bracelet, bed and alarms, visiting hours, pain management, procedures, bathroom and other care routines, personal items, smoking policy, room service/diet, and visiting hours. Information on how to activate the Rapid Response Team has been discussed. Patient/Family are encouraged to report perceived risks to care and to ask questions if they do not understand what they are told or what they should do.
[2023-10-15] MEDS: ACETAMINOPHEN 325 MG TABLET 650 MG PO ×3 (04:03→14:35)
[2023-10-15] MEDS: ALBUTEROL SULFATE NEB 2.5 MG/3 ML INH INHALATION ×4 (04:40→20:00)
[2023-10-15] MEDS: IPRATROPIUM BR 0.02% INH SOLN 0.5 MG/2.5 ML VIAL INHALATION ×4 (04:40→20:00)
[2023-10-15] MEDS: ENOXAPARIN 40 MG/0.4 ML SYRINGE SUB-Q (10:16)
[2023-10-15] MEDS: LIDOCAINE 5% PATCH 2 PATCH TOPICAL (10:16)
[2023-10-15] MEDS: GLIMEPIRIDE 2 MG TABLET PO (10:16)
[2023-10-15] MEDS: ATORVASTATIN 40 MG TABLET 80 MG PO (10:16)
[2023-10-15] MEDS: LORazepam (*CRX) 0.5 MG TABLET PO ×2 (10:17→14:34)
[2023-10-15] MEDS: GABAPENTIN 300 MG CAPSULE PO ×2 (10:17→14:34)
[2023-10-15 11:37] LABS: Glucose Point of Care 178 mg/dl (65-105)
--- NOTE | 2023-10-15 13:00 | PM.IMPN ---
Subjective Date/time seen: 10/15/23 13:00 Interval history: Patient an 88 YO female with PMH of DM2, HTN, and hyperlipidemia admitted for confusion. Patient was recently completed antibiotics treating a UTI. Patient has had a cough at home and was found to have a fever. Patient was hypoxic at time of ED arrival, normally does not require oxygen at baseline. She was requiring 2L but now is on room air. Her last documented fever was at 0600, 101.2. Head CT was negative for any acute process. She was found to have RSV on her respiratory panel. CXR negative for pneumonia or acute process. BC drawn and pending. Patient has had nausea and vomiting this morning. Will continue supportive care, neb treatments and plan for d/c tomorrow if she is still satting > 90-92 on room air. Will repeat CBC, ABG today. Review of Systems Review of Systems: All systems reviewed & are unremarkable except as noted in HPI and below Objective Data Vital Signs Vital Signs: Vital Signs - 24 hr 10/14/23 20:22 10/14/23 20:50 10/14/23 21:15 Temperature 102.9 F H Pulse Rate 98 Respiratory Rate 27 H Blood Pressure 167/98 H Pulse Oximetry 97 96 97 Oxygen Delivery Room Air Room Air Nasal Cannula Oxygen Flow Rate 2 10/14/23 20:30 10/14/23 20:31 10/14/23 20:45 Temperature Pulse Rate 91 91 94 Respiratory Rate 32 H 28 H 24 H Blood Pressure 167/98 H Pulse Oximetry 93 94 Oxygen Delivery Oxygen Flow Rate 10/14/23 21:00 10/14/23 21:01 10/14/23 21:15 Temperature Pulse Rate 94 90 93 Respiratory Rate 36 H 33 H 29 H Blood Pressure 204/91 H Pulse Oximetry Oxygen Delivery Oxygen Flow Rate 10/14/23 21:30 10/14/23 21:31 10/14/23 21:45 Temperature Pulse Rate 98 93 95 Respiratory Rate 27 H 30 H 31 H Blood Pressure 190/89 H Pulse Oximetry Oxygen Delivery Oxygen Flow Rate 10/14/23 22:01 10/14/23 22:15 10/14/23 21:30 Temperature 99.1 F Pulse Rate 79 87 Respiratory Rate 32 H 25 H Blood Pressure Pulse Oximetry 95 97 Oxygen Delivery Oxygen Flow Rate 10/14/23 22:30 10/14/23 22:45 10/14/23 23:00 Temperature Pulse Rate 92 90 90 Respiratory Rate 23 H 28 H 18 Blood Pressure 155/94 H Pulse Oximetry 98 97 95 Oxygen Delivery Oxygen Flow Rate 10/14/23 23:01 10/14/23 23:15 10/14/23 23:30 Temperature Pulse Rate 89 88 90 Respiratory Rate 26 H 17 20 Blood Pressure Pulse Oximetry 95 93 96 Oxygen Delivery Oxygen Flow Rate 10/14/23 23:45 10/15/23 00:00 10/15/23 00:15 Temperature Pulse Rate 84 93 86 Respiratory Rate 19 16 27 H Blood Pressure Pulse Oximetry Oxygen Delivery Oxygen Flow Rate 10/15/23 00:30 10/15/23 00:45 10/15/23 01:00 Temperature Pulse Rate 88 85 88 Respiratory Rate 26 H 18 21 H Blood Pressure Pulse Oximetry 97 97 98 Oxygen Delivery Oxygen Flow Rate 10/15/23 01:15 10/15/23 01:30 10/15/23 01:45 Temperature Pulse Rate 81 89 79 Respiratory Rate 22 H 19 26 H Blood Pressure Pulse Oximetry 96 94 94 Oxygen Delivery Oxygen Flow Rate 10/15/23 02:29 10/15/23 02:06 10/15/23 03:51 Temperature 98.6 F 102.3 F H Pulse Rate 82 Respiratory Rate 20 Blood Pressure 158/62 H Pulse Oximetry 98 98 Oxygen Delivery Nasal Cannula Oxygen Flow Rate 2 10/15/23 04:03 10/15/23 05:00 10/15/23 05:20 Temperature 102.8 F H 101.1 F H 101.1 F H Pulse Rate 88 Respiratory Rate 18 Blood Pressure 128/48 L Pulse Oximetry 95 Oxygen Delivery Oxygen Flow Rate 10/15/23 05:55 10/15/23 07:45 10/15/23 07:45 Temperature 101.2 F H Pulse Rate 82 82 Respiratory Rate 18 18 Blood Pressure Pulse Oximetry 96 Oxygen Delivery Nasal Cannula Oxygen Flow Rate 2 10/15/23 08:13 Temperature Pulse Rate 84 Respiratory Rate 18 Blood Pressure Pulse Oximetry Oxygen Delivery Oxygen Flow Rate Intake/Output Intake/Output: Intake & Output 10/12/23 10/13/23
--- NOTE | 2023-10-15 13:14 | PM.IMHP ---
H&P: HPI History of Present Illness Date/Time: 10/15/23 13:14 Chief Complaint: Patient an 88 YO female with PMH of DM2, HTN, and hyperlipidemia admitted for confusion. Patient was recently completed antibiotics treating a UTI. Patient has had a cough at home and was found to have a fever. Patient was hypoxic at time of ED arrival, normally does not require oxygen at baseline. She was requiring 2L but now is on room air. Her last documented fever was at 0600, 101.2. Head CT was negative for any acute process. She was found to have RSV on her respiratory panel. CXR negative for pneumonia or acute process. BC drawn and pending. Patient has had nausea and vomiting this morning. Will continue supportive care, neb treatments and plan for d/c tomorrow if she is still satting > 90-92 on room air. Will repeat CBC, ABG today. Review of Systems Review of Systems: All systems reviewed & are unremarkable except as noted in HPI and below PMFSH Past Medical History Medical History Anxiety Diabetes mellitus Hyperlipemia Hypertension Obesity Shingles Surgical History Surgical History H/O: hysterectomy History of appendectomy Family History Family History Mother Hypertension Family history of diabetes mellitus in first degree relative Father Family history of coronary artery disease Sibling Family history of malignant neoplasm of breast in first degree relative Social History Social History Smoking status: Never smoker Alcohol intake: never Substance use: never Spiritual care concerns: No Meds Home Medications and Allergies Home Medications Medication Instructions Recorded Confirmed Type albuterol sulfate 90 mcg/actuation 90 mcg inhalation BID 10/12/20 10/15/23 History aerosol inhaler atorvastatin 80 mg tablet 80 mg PO DAILY 10/12/20 10/15/23 History gabapentin 300 mg capsule 300 mg PO TID #90 caps 10/12/20 10/15/23 Rx glimepiride 2 mg tablet 2 mg PO DAILY 10/12/20 10/15/23 History lorazepam 0.5 mg tablet 0.5 mg PO TID 10/12/20 10/15/23 History lidocaine 5 % topical patch 1 patch topical DAILY #1 ea 10/30/20 10/15/23 Rx Allergies Allergy/AdvReac Type Severity Reaction Status Date / Time ibuprofen Allergy Severe Nausea and Verified 10/14/23 21:05 Vomiting codeine Allergy Unknown Other Verified 10/14/23 21:05 Vital Signs Vital Signs - 24 hr 10/14/23 20:22 10/14/23 20:50 10/14/23 21:15 Temperature 102.9 F H Pulse Rate 98 Respiratory Rate 27 H Blood Pressure 167/98 H Pulse Oximetry 97 96 97 Oxygen Delivery Room Air Room Air Nasal Cannula Oxygen Flow Rate 2 10/14/23 20:30 10/14/23 20:31 10/14/23 20:45 Temperature Pulse Rate 91 91 94 Respiratory Rate 32 H 28 H 24 H Blood Pressure 167/98 H Pulse Oximetry 93 94 Oxygen Delivery Oxygen Flow Rate 10/14/23 21:00 10/14/23 21:01 10/14/23 21:15 Temperature Pulse Rate 94 90 93 Respiratory Rate 36 H 33 H 29 H Blood Pressure 204/91 H Pulse Oximetry Oxygen Delivery Oxygen Flow Rate 10/14/23 21:30 10/14/23 21:31 10/14/23 21:45 Temperature Pulse Rate 98 93 95 Respiratory Rate 27 H 30 H 31 H Blood Pressure 190/89 H Pulse Oximetry Oxygen Delivery Oxygen Flow Rate 10/14/23 22:01 10/14/23 22:15 10/14/23 21:30 Temperature 99.1 F Pulse Rate 79 87 Respiratory Rate 32 H 25 H Blood Pressure Pulse Oximetry 95 97 Oxygen Delivery Oxygen Flow Rate 10/14/23 22:30 10/14/23 22:45 10/14/23 23:00 Temperature Pulse Rate 92 90 90 Respiratory Rate 23 H 28 H 18 Blood Pressure 155/94 H Pulse Oximetry 98 97 95 Oxygen Delivery Oxygen Flow Rate 10/14/23 23:01 10/14/23 23:15 10/14/23 23:30 Temperature Pulse Rate 89 88 90 Respirat
[2023-10-15 13:35] LABS: Basophils Absolute Auto 0.1 K/mm3 (0.0-0.1); Basophils Percent Auto 0.4 % (0.2-1.2); Eosinophils Absolute Auto 0.2 K/mm3 (0-0.3); Eosinophils Percent Auto 1.3 % (0-4.4); Hematocrit 43.9 % (37.0-47.0); Immature Granulocyte Absolute 0.09 K/mm3 (0.00-0.031); Immature Granulocyte Percent A 0.5 % (0-0.5); Lymphocytes Percent Auto 9.3 % (18.3-44.2); Mean Corpuscular HGB Conc 31.9 g/dl (32-36); Mean Corpuscular Hemoglobin 30.2 pg (26-34); Mean Corpuscular Volume 94.6 fl (80-100); Mean Platelet Volume 10.4 fl (7.4-10.4); Monocytes Absolute Auto 1.6 K/mm3 (0.1-0.6); Monocytes Percent Auto 8.9 % (2.6-8.5); Neutrophils Absolute Auto 14.5 K/mm3 (1.3-6.7); Neutrophils Percent Auto 79.6 % (45.5-73.1); Platelet Count Result 147 k/mm3 (150-375); Red Blood Count 4.64 M/mm3 (4.2-5.4); Red Cell Distribution Width 13.5 % (11.5-14.5); White Blood Count 18.2 K/mm3 (4.5-10.0)
[2023-10-15 14:07] LABS: Glucose Point of Care 168 mg/dl (65-105)
[2023-10-15 16:19] LABS: Alveolar/Arterial O2 Gradient 94.7 mmHg; Device NASAL CANNULA; Fractional Inspired Oxygen 28 %; HCO3 ABG 19.8 mEq/l (22.0-26.0); Modified Allen's Test Pass; Oxygen Content ABG 18.5 %vol (16.0-22.0); Oxygen Saturation ABG 93.4 % (95.0-100.0); Oxyhemoglobin 92.5 % THb (90.0-100.0); PCO2 ABG 32.7 mmHg (35.0-45.0); PO2 ABG 66.4 mmHg (80.0-100.0); PO2 FiO2 Ratio Arterial Blood 2.37 %; Site Drawn RIGHT RADIAL; Total Hemoglobin 14.2 g/dL (12.0-18.0)
[2023-10-15 17:04] LABS: Glucose Point of Care 170 mg/dl (65-105)
[2023-10-15 20:27] LABS: Glucose Point of Care 128 mg/dl (65-105)
[2023-10-15] MEDS: ACETAMINOPHEN 650 MG SUPPOSITORY RECTAL (20:59)
[2023-10-15] MEDS: ACETAMINOPHEN 325 MG SUPPOSITORY RECTAL (23:40)
[2023-10-16] VITALS (19 sets, daily range): BP systolic 142–172; BP diastolic 64–90; PULSE 80–116; RESP 15–24; TEMP 36.4–39.2; O2SAT 91–95
[2023-10-16] MEDS: ALBUTEROL SULFATE NEB 2.5 MG/3 ML INH INHALATION ×4 (02:10→19:51)
[2023-10-16] MEDS: IPRATROPIUM BR 0.02% INH SOLN 0.5 MG/2.5 ML VIAL INHALATION ×4 (02:10→19:51)
[2023-10-16] MEDS: SODIUM CHLORIDE 0.9% IV 1,000 ML 75 ML IV CONT ×2 (03:32→15:57)
[2023-10-16] MEDS: ACETAMINOPHEN 650 MG SUPPOSITORY RECTAL ×2 (04:50→20:17)
[2023-10-16 06:08] LABS: Basophils Absolute Auto 0.1 K/mm3 (0.0-0.1); Basophils Percent Auto 0.7 % (0.2-1.2); Eosinophils Absolute Auto 0.3 K/mm3 (0-0.3); Eosinophils Percent Auto 1.9 % (0-4.4); Hematocrit 43.5 % (37.0-47.0); Hemoglobin 13.7 g/dL (12.0-15.0); Immature Granulocyte Absolute 0.09 K/mm3 (0.00-0.031); Immature Granulocyte Percent A 0.6 % (0-0.5); Lymphocytes Absolute Auto 1.22 K/mm3 (0.9-3.2); Lymphocytes Percent Auto 8.2 % (18.3-44.2); Mean Corpuscular HGB Conc 31.5 g/dl (32-36); Mean Corpuscular Hemoglobin 30.5 pg (26-34); Mean Corpuscular Volume 96.9 fl (80-100); Mean Platelet Volume 10.7 fl (7.4-10.4); Monocytes Absolute Auto 0.9 K/mm3 (0.1-0.6); Monocytes Percent Auto 6.2 % (2.6-8.5); Neutrophils Absolute Auto 12.3 K/mm3 (1.3-6.7); Neutrophils Percent Auto 82.4 % (45.5-73.1); Platelet Count Result 138 k/mm3 (150-375); Red Blood Count 4.49 M/mm3 (4.2-5.4); Red Cell Distribution Width 13.8 % (11.5-14.5); White Blood Count 14.9 K/mm3 (4.5-10.0)
[2023-10-16 06:14] LABS: Anion Gap 12 mmol/L (8-16); Blood Urea Nitrogen 14 mg/dL (7-17); Calcium 7.9 mg/dL (8.4-10.2); Carbon Dioxide 22 mmol/L (22-30); Chloride 106 mmol/L (98-107); Estimated CRCL calculation 34 ml/min; Estimated Glomerular Filt Rate 52; Glucose 157 mg/dL (65-110); Potassium 3.5 mmol/L (3.4-5.0); Sodium 140 mmol/L (137-145)
[2023-10-16 08:33] LABS: Glucose Point of Care 142 mg/dl (65-105)
[2023-10-16] MEDS: ATORVASTATIN 40 MG TABLET 80 MG PO (08:41)
[2023-10-16] MEDS: GLIMEPIRIDE 2 MG TABLET PO (08:41)
[2023-10-16] MEDS: LORazepam (*CRX) 0.5 MG TABLET PO (08:41)
[2023-10-16] MEDS: GABAPENTIN 300 MG CAPSULE PO ×3 (08:41→16:40)
[2023-10-16] MEDS: ENOXAPARIN 40 MG/0.4 ML SYRINGE SUB-Q (08:41)
[2023-10-16] MEDS: LIDOCAINE 5% PATCH 2 PATCH TOPICAL (08:41)
[2023-10-16 12:17] LABS: Glucose Point of Care 166 mg/dl (65-105)
--- NOTE | 2023-10-16 13:57 | PM.IMPN ---
Progress Note: A&P Assessment and Plan (1) RSV infection: Code(s): B33.8 - Other specified viral diseases Status: Acute Assessment and Plan: Head CT was negative for any acute process. RSV positive respiratory panel. CXR negative for pneumonia or acute process. BC drawn and pending. nebs, supportive care (2) Acute hypoxic respiratory failure: Code(s): J96.01 - Acute respiratory failure with hypoxia Status: Acute Assessment and Plan: requiring 2L O2, may need home O2 eval if unable to wean baseline is no oxygen requirement admission ABG: showed pO2 53.6, O2 sat 88.6, oxyhemoglobin 86.2 on room air repeat ABG improved Plan DM2: continue home glimepiride, AccuCheck and hypoglycemic protocol PT/OT ordered for d/c planning, would likely benefit from home health Continue home meds Subjective Date/time seen: 10/16/23 13:57 Interval history: Patient is not in acute stress this am, she is A&O x2. She denies n/v this morning. Drinking well. Patient had fevers overnight, afebrile since 0650. BC still pending, no growth to date. PT/OT evaluating for d/c planning. Continue to monitor, may need O2 eval prior to d/c if unable to wean off 2L O2. Review of Systems Review of Systems: All systems reviewed & are unremarkable except as noted in HPI and below Exam Narrative: GENERAL: Ill-appearing, well-nourished, and in no acute distress. HEAD: Normocephalic, atraumatic. EYES: PERRLA and EOMI. ENT: Nares clear, no rhinorrhea or epistaxis. Mucous membranes moist. NECK: Supple. CHEST: Lungs clear to auscultation, wheezes throughout. No respiratory distress. HEART: RRR. No murmur heard. Normal peripheral pulses. ABDOMEN: Soft, nontender, nondistended, normal active bowel sounds. EXTREMITIES: Normal range of motion. No edema. SKIN: Warm, dry, no rash. NEURO: No focal deficits. Alert and oriented, slow to respond to some questions. PSYCH: Normal mood and affect. Objective Data Vital Signs Vital Signs: Vital Signs - 24 hr 10/15/23 14:23 10/15/23 14:25 10/15/23 17:12 Temperature 99.7 F H Pulse Rate 110 H 110 H 92 Respiratory Rate 32 H 32 H 24 H Blood Pressure 166/74 H Pulse Oximetry 91 91 94 Oxygen Delivery Nasal Cannula Oxygen Flow Rate 2 10/15/23 19:44 10/15/23 19:48 10/15/23 20:00 Temperature 101.3 F H Pulse Rate 72 102 H Respiratory Rate 20 20 Blood Pressure 162/85 H Pulse Oximetry 94 94 Oxygen Delivery Nasal Cannula Oxygen Flow Rate 2 10/15/23 20:22 10/15/23 20:15 10/15/23 20:59 Temperature 102.4 F H Pulse Rate 102 H 91 Respiratory Rate 20 20 Blood Pressure Pulse Oximetry 91 Oxygen Delivery Nasal Cannula Oxygen Flow Rate 2 10/15/23 21:59 10/15/23 22:30 10/15/23 22:54 Temperature 102 F H 98.6 F 99.1 F Pulse Rate 103 H 93 Respiratory Rate 20 Blood Pressure 122/64 Pulse Oximetry 95 95 Oxygen Delivery Oxygen Flow Rate 10/15/23 23:40 10/16/23 00:45 10/16/23 02:10 Temperature 101.7 F H 97.5 F L Pulse Rate 96 Respiratory Rate 20 Blood Pressure Pulse Oximetry Oxygen Delivery Oxygen Flow Rate 10/16/23 02:25 10/16/23 04:50 10/16/23 05:05 Temperature 102.5 F H Pulse Rate 91 97 Respiratory Rate 20 20 Blood Pressure 151/64 H Pulse Oximetry 94 Oxygen Delivery Oxygen Flow Rate 10/16/23 05:50 10/16/23 06:50 10/16/23 08:00 Temperature 102 F H 98.1 F Pulse Rate 89 Respiratory Rate 20 Blood Pressure Pulse Oximetry Oxygen Delivery Oxygen Flow Rate 10/16/23 08:13 10/16/23 08:17 10/16/23 08:00 Temperature Pulse Rate 96 Respiratory Rate 20 Blood Pressure Pulse Oximetry 92 93 Oxygen Delivery Nasal Cannula Nasal Cannula Oxygen Flow Rate 2 2 10/16/23 12:00 10/16/23 13:20 10/16/23 13:35 Temperature Pulse Rate 86 80 Respiratory Rate 18 18 Blood Pressure Pulse Oximetry Oxygen Delivery Nasal Cannu
[2023-10-16 17:01] LABS: Glucose Point of Care 117 mg/dl (65-105)
[2023-10-16 21:25] LABS: Glucose Point of Care 97 mg/dl (65-105)
[2023-10-16 22:41] LABS: NT Pro B Type Natriuretic Pept 7290 pg/mL (19.9-100)
[2023-10-16] MEDS: AZITHROMYCIN 500 MG/NS 250 ML 500 MG/250 ML BAG 150 MG IVPB (23:05)
[2023-10-17] VITALS (19 sets, daily range): BP systolic 106–117; BP diastolic 55–66; PULSE 76–119; RESP 15–24; TEMP 36.2–38.1; O2SAT 85–96
--- NOTE | 2023-10-17 | ECHO_ITS ---
Patient Info Name: Claudia Mac Age: 88 years : 1935 Gender: Female Ht: 62 in Wt: 174 lbs BSA: 1.89 m2 HR: 115 bpm BP: 117 / 66 mmHg Heart Rhythm: Paced Technical Quality: Poor Exam Date: 10/17/2023 10:34 AM Exam Location: Echo Lab Patient Status: Inpatient Admit Date: 10/15/2023 Staff Ordering Physician: Jessica Newman DO Attending Provider: Michelle Griffin Referring Physician: Paty FISCHER; Exam Type: CA echo dop color flow w con Study Info Indications Z95.0 - Presence of cardiac pacemaker J81.0 - Acute pulmonary edema Complete two-dimensional, color flow and Doppler transthoracic echocardiogram is performed with contrast to opacify the left ventricle and to improve the deliniation of the left ventricle endocardial borders. Contrast/Agitated Saline Contrast/Ag. Saline: Definity Amount: --- ml Existing IV Access: Yes IV Access Condition: patent with no signs of infiltration Reason for Poor Study: poor patient cooperation Summary 1. Technically difficult study with limited views. 2. Left ventricular chamber dimension is normal. 3. Left ventricular systolic function is hyperdynamic, estimated at >70%. 4. There is mildly increased left ventricular wall thickness. 5. The left ventricular diastolic function is grade III diastolic dysfunction. 6. Right ventricular systolic function is normal. 7. There is trace mitral valve regurgitation. 8. There is trace tricuspid valve regurgitation. 9. Normal inferior vena cava with >50% collapse upon inspiration consistent with normal right atrial pressure, 3 mmHg. Left Ventricle Left ventricular chamber dimension is normal. Left ventricular systolic function is hyperdynamic, estimated at >70%. There is mildly increased left ventricular wall thickness. The left ventricular diastolic function is grade III diastolic dysfunction. Right Ventricle Right ventricular chamber dimension is normal. Right ventricular systolic function is normal. Left Atria Left atrial chamber dimension is normal. Right Atria Right atrial chamber dimension is normal. Atrial Septum Intact interatrial septum visualized by color flow imaging. Aortic Valve The aortic valve is not well visualized. There is no aortic valve stenosis. There is no aortic valve regurgitation. Pulmonic Valve The pulmonic valve is not well visualized. Mitral Valve There is trace mitral valve regurgitation. Tricuspid Valve There is trace tricuspid valve regurgitation. Pericardium/Pleural There is no pericardial effusion. Inferior Vena Cava Normal inferior vena cava with >50% collapse upon inspiration consistent with normal right atrial pressure, 3 mmHg. Aorta The aortic root size at the sinus of Valsalva is normal. Left Ventricular Outflow Tract Name Value Normal LVOT 2D LVOT Diameter 2.13 cm LVOT Doppler LVOT Peak Gradient 6 mmHg LVOT Mean Gradient 3 mmHg LVOT VTI 22.52 cm LVOT VTI/AV VTI Ratio 0.63 LVOT Stroke Volume 79.91 ml LVOT CO 8.48 l/min
[2023-10-17] MEDS: IPRATROPIUM BR 0.02% INH SOLN 0.5 MG/2.5 ML VIAL INHALATION ×4 (02:21→20:57)
[2023-10-17] MEDS: ALBUTEROL SULFATE NEB 2.5 MG/3 ML INH INHALATION ×4 (02:21→20:57)
[2023-10-17 05:54] LABS: Hematocrit 37.4 % (37.0-47.0); Hemoglobin 12.3 g/dL (12.0-15.0); Mean Corpuscular HGB Conc 32.9 g/dl (32-36); Mean Corpuscular Hemoglobin 30.5 pg (26-34); Mean Corpuscular Volume 92.8 fl (80-100); Mean Platelet Volume 10.6 fl (7.4-10.4); Platelet Count Result 150 k/mm3 (150-375); Red Blood Count 4.03 M/mm3 (4.2-5.4); Red Cell Distribution Width 14.1 % (11.5-14.5); White Blood Count 15.2 K/mm3 (4.5-10.0)
[2023-10-17 06:04] LABS: Anion Gap 6 mmol/L (8-16); Blood Urea Nitrogen 23 mg/dL (7-17); Calcium 7.5 mg/dL (8.4-10.2); Carbon Dioxide 26 mmol/L (22-30); Chloride 107 mmol/L (98-107); Estimated CRCL calculation 34 ml/min; Estimated Glomerular Filt Rate 52; Glucose 98 mg/dL (65-110); Potassium 3.6 mmol/L (3.4-5.0); Sodium 139 mmol/L (137-145)
[2023-10-17 08:35] LABS: Glucose Point of Care 82 mg/dl (65-105)
[2023-10-17] MEDS: FUROSEMIDE INJ 40 MG/4 ML VIAL IV PUSH (10:23)
[2023-10-17] MEDS: ATORVASTATIN 40 MG TABLET 80 MG PO (10:23)
[2023-10-17] MEDS: ENOXAPARIN 40 MG/0.4 ML SYRINGE SUB-Q (10:23)
[2023-10-17] MEDS: LIDOCAINE 5% PATCH 2 PATCH TOPICAL (10:23)
[2023-10-17] MEDS: GABAPENTIN 300 MG CAPSULE PO ×3 (10:23→17:51)
--- NOTE | 2023-10-17 11:12 | PCPTNOTE ---
Attempted to see patient for PT, however patient was out of the room for dialysis.
[2023-10-17] MEDS: PERFLUTREN LIPID MICROSPHERES 1.5 ML VIAL DILUTED TO 10 ML TOTAL VOLUME IV PUSH (11:15)
--- NOTE | 2023-10-17 11:20 | PCPTNOTE ---
Patient refused treatment this session. Patient reported feeling too tired.
[2023-10-17 12:32] LABS: Glucose Point of Care 138 mg/dl (65-105)
--- NOTE | 2023-10-17 12:55 | P.PNIM_ITS ---
Progress Note: A&P Assessment and Plan (1) RSV infection: Code(s): B33.8 - Other specified viral diseases Status: Acute Assessment and Plan: * Head CT was negative for any acute process. * RSV positive respiratory panel. * Interval CXR from yesterday is showing a development of PNA. * BC drawn and pending. * nebs, supportive care * Supplemental oxygen, wean as tolerated. (2) Acute hypoxic respiratory failure: Code(s): J96.01 - Acute respiratory failure with hypoxia Status: Acute Assessment and Plan: * Continue supplemental oxygen with titration to keep sats up. * Pt wears no oxygen at baseline. * Continue to monitor respiratory status. * Lasix 40 mg IVP daily. (3) Abnormal chest xray: Code(s): R93.89 - Abnormal findings on diagnostic imaging of other specified body structures Status: Acute Assessment and Plan: * Repeat CXR from yesterday shows an interval development of PNA. * Rocephin and Azithromycin started. * WBC increased reflecting the acute infection. * Continue supportive care outlined in problems #2 and #3. * Continue Supplemental oxygen and titrate/wean as able to. * Sputum culture ordered. * Blood culture is pending. * Obtain urine antigens for Legionella and Strep Pneumo * Repeat CXR in AM. (4) Diabetes mellitus: Qualifiers: Diabetes mellitus type: type 2 Diabetes mellitus care home insulin use: without supervisor intermediates use Diabetes mellitus complication status: with other specified complication Qualified Code(s): E11.69 - Type 2 diabetes mellitus with other specified complication Code(s): E11.9 - Type 2 diabetes mellitus without complications Status: Chronic Assessment and Plan: * Hold oral hypoglycemic medications * SSI low dose ordered * Tighter glycemic control is warranted while pt is acutely ill. * Continue hypoglycemic protocol * Continue glucose checks AC and HS * Continue heart healthy diet. Time Spent With Patient Time with patient: 15 - 25 minutes Subjective Date/time seen: 10/17/23 0920 Interval history: This 88 year old female pt admitted for Acute hypoxic respiratory failure and Acute RSV is examined at the bedside in interval assessment. CXR that was performed yesterday had an interval change in reading of pulmonary opacities that may represent pulmonary edema or multifocal PNA. Pt was empirically started on Azithromycin and Rocephin as her supplemental oxygen demand increased from 2L-->4L and she appeared more dyspneic. It is stated in H&P that she recently had a UTI as well and one was not obtained to this point, so one is ordered. In addition, will check Urine for a strep pneumo and Legionella. Pt appears pleasantly confused today knowing her name and that she is at [facility] only. She has no idea why she is here or of the year for this provider. She remains on 3L supplemental oxygen with very poor lung sounds present. Review of Systems Review of Systems: Pt appears acutely confused talking about being in a room and someone came by and took her belongings. ROS unobtainable: Yes unobtainable due to mental status (Pt is currently confused) Exam Narrative: GENERAL: Ill-appearing, well-nourished, and in no acute distress, but acutely and pleasantly confused. HEAD: Normocephalic, atraumatic. EYES: PERRLA and EOMI. ENT: Nares clear, no rhinorrhea or epistaxis. Mucous membranes moist. NECK: Supple. CHEST: No respiratory distress noted, but pt has coarse rales in the BLL, and audible gurgles standing at the bedside. HEART: R
--- NOTE | 2023-10-17 12:55 | PM.IMPN ---
Progress Note: A&P Assessment and Plan (1) RSV infection: Code(s): B33.8 - Other specified viral diseases Status: Acute Assessment and Plan: Head CT was negative for any acute process. RSV positive respiratory panel. Interval CXR from yesterday is showing a development of PNA. BC drawn and pending. nebs, supportive care Supplemental oxygen, wean as tolerated. (2) Acute hypoxic respiratory failure: Code(s): J96.01 - Acute respiratory failure with hypoxia Status: Acute Assessment and Plan: Continue supplemental oxygen with titration to keep sats up. Pt wears no oxygen at baseline. Continue to monitor respiratory status. Lasix 40 mg IVP daily. (3) Abnormal chest xray: Code(s): R93.89 - Abnormal findings on diagnostic imaging of other specified body structures Status: Acute Assessment and Plan: Repeat CXR from yesterday shows an interval development of PNA. Rocephin and Azithromycin started. WBC increased reflecting the acute infection. Continue supportive care outlined in problems #2 and #3. Continue Supplemental oxygen and titrate/wean as able to. Sputum culture ordered. Blood culture is pending. Obtain urine antigens for Legionella and Strep Pneumo Repeat CXR in AM. 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 Continue hypoglycemic protocol Continue glucose checks AC and HS Continue heart healthy diet. Time Spent With Patient Time with patient: 15 - 25 minutes Subjective Date/time seen: 10/17/23 0920 Interval history: This 88 year old female pt admitted for Acute hypoxic respiratory failure and Acute RSV is examined at the bedside in interval assessment. CXR that was performed yesterday had an interval change in reading of pulmonary opacities that may represent pulmonary edema or multifocal PNA. Pt was empirically started on Azithromycin and Rocephin as her supplemental oxygen demand increased from 2L-->4L and she appeared more dyspneic. It is stated in H&P that she recently had a UTI as well and one was not obtained to this point, so one is ordered. In addition, will check Urine for a strep pneumo and Legionella. Pt appears pleasantly confused today knowing her name and that she is at [facility] only. She has no idea why she is here or of the year for this provider. She remains on 3L supplemental oxygen with very poor lung sounds present. Review of Systems Review of Systems: Pt appears acutely confused talking about being in a room and someone came by and took her belongings. ROS unobtainable: Yes unobtainable due to mental status (Pt is currently confused) Exam Narrative: GENERAL: Ill-appearing, well-nourished, and in no acute distress, but acutely and pleasantly confused. HEAD: Normocephalic, atraumatic. EYES: PERRLA and EOMI. ENT: Nares clear, no rhinorrhea or epistaxis. Mucous membranes moist. NECK: Supple. CHEST: No respiratory distress noted, but pt has coarse rales in the BLL, and audible gurgles standing at the bedside. HEART: RRR. No murmur heard. Normal peripheral pulses. ABDOMEN: Soft, nontender, nondistended, normal active bowel sounds. EXTREMITIES: Normal range of motion. No edema. SKIN: Warm, dry, no rash. NEURO: No focal deficits. Alert and oriented to self and knowing she is a [facility]. PSYCH: Normal mood and affect. Objective Data Vital Signs Vital Signs: Vital Signs - 24 hr 10/16/23
[2023-10-17] MEDS: LORazepam (*CRX) 0.5 MG TABLET PO (13:34)
--- NOTE | 2023-10-17 13:44 | ECG_ITS ---
Measurements Intervals Pride Rate: 113 P: W[place]: 0 QRS: -38 QRSD: 105 T: 99 QT: 277 QTc: 381 Interpretive Statements ATRIAL FIBRILLATION WITH RAPID VENTRICULAR RESPONSE VENTRICULAR PREMATURE COMPLEXES LEFT AXIS DEVIATION LEFT VENTRICULAR HYPERTROPHY WITH ST-T CHANGE POOR R WAVE PROGRESSION, CONSIDER ANTERIOR INFARCT ABNORMAL ECG COMPARED TO ECG 10/14/2023 21:04:36 ATRIAL FIBRILLATION NOW PRESENT LEFT-AXIS DEVIATION NOW PRESENT Electronically Signed On 10-17-2023 14:06:33 [employer] by Emiliano Gould D.O.
[2023-10-17 14:27] LABS: Troponin I 0.046 ng/mL (0.000-0.034)
[2023-10-17] MEDS: dilTIAZem HCL CD 120 MG CAP.24HR PO (15:02)
[2023-10-17 17:22] LABS: Glucose Point of Care 87 mg/dl (65-105)
[2023-10-17 17:25] LABS: Troponin I 0.048 ng/mL (0.000-0.034)
[2023-10-17 20:08] LABS: Troponin I 0.054 ng/mL (0.000-0.034)
[2023-10-17] MEDS: AZITHROMYCIN 500 MG/NS 250 ML 500 MG/250 ML BAG 250 MG IVPB (21:02)
[2023-10-17 21:40] LABS: Glucose Point of Care 94 mg/dl (65-105)
--- NOTE | 2023-10-17 22:23 | PC.NURSE ---
2210 Pt has had increase O2 requirements from 3L to 8L, coarse breathsounds loose cough with shortness of breath. Rapid response called.
--- NOTE | 2023-10-17 22:27 | PC.NURSE ---
Attempted to reach daughter Renee to inform her that pt will be moved to IMU with no answer.
[2023-10-17 22:51] LABS: Base Excess ABG 1.3 mEq/l (+/-2.0); Fractional Inspired Oxygen 60 %; HCO3 ABG 25.1 mEq/l (22.0-26.0); Oxygen Content ABG 16.7 %vol (16.0-22.0); Oxygen Saturation ABG 94.2 % (95.0-100.0); Oxyhemoglobin 93.2 % THb (90.0-100.0); PO2 ABG 67.1 mmHg (80.0-100.0); PO2 FiO2 Ratio Arterial Blood 1.12 %; Total Hemoglobin 12.7 g/dL (12.0-18.0); pH ABG 7.449 (7.350-7.450)
[2023-10-17 22:53] LABS: Device HIGH FLOW NASAL CANN; Modified Allen's Test Pass; Site Drawn LEFT RADIAL
[2023-10-17 23:10] LABS: Basophils Percent Auto 0.3 % (0.2-1.2); Eosinophils Percent Auto 0.1 % (0-4.4); Hemoglobin 11.7 g/dL (12.0-15.0); Immature Granulocyte Absolute 0.13 K/mm3 (0.00-0.031); Immature Granulocyte Percent A 0.9 % (0-0.5); Lymphocytes Absolute Auto 2.16 K/mm3 (0.9-3.2); Mean Corpuscular HGB Conc 33.4 g/dl (32-36); Mean Corpuscular Hemoglobin 30.3 pg (26-34); Mean Corpuscular Volume 90.7 fl (80-100); Mean Platelet Volume 10.4 fl (7.4-10.4); Monocytes Absolute Auto 0.7 K/mm3 (0.1-0.6); Monocytes Percent Auto 5.1 % (2.6-8.5); Neutrophils Absolute Auto 11.3 K/mm3 (1.3-6.7); Neutrophils Percent Auto 78.6 % (45.5-73.1); Platelet Count Result 167 k/mm3 (150-375); Red Blood Count 3.86 M/mm3 (4.2-5.4); Red Cell Distribution Width 14.3 % (11.5-14.5); White Blood Count 14.4 K/mm3 (4.5-10.0)
[2023-10-17 23:21] LABS: Glucose Point of Care 96 mg/dl (65-105)
--- NOTE | 2023-10-17 23:23 | PC.NURSE ---
2236 patient transferred to IMU, room 213.
[2023-10-17 23:27] LABS: Anion Gap 8 mmol/L (8-16); Blood Urea Nitrogen 27 mg/dL (7-17); Calcium 7.8 mg/dL (8.4-10.2); Carbon Dioxide 26 mmol/L (22-30); Chloride 106 mmol/L (98-107); Estimated CRCL calculation 35 ml/min; Estimated Glomerular Filt Rate 52; Glucose 95 mg/dL (65-110); Magnesium 1.8 mg/dL (1.6-2.3); Phosphorus 1.3 mg/dL (2.5-4.5); Potassium 2.8 mmol/L (3.4-5.0); Sodium 140 mmol/L (137-145)
[2023-10-17 23:28] LABS: NT Pro B Type Natriuretic Pept 5880 pg/mL (19.9-100)
--- NOTE | 2023-10-17 23:31 | PC.NURSE ---
This patient, Claudia Mac, was received from [facility] on 10/17/23 at 2242. Patient/family oriented to unit policies and routines
[2023-10-18] VITALS (23 sets, daily range): BP systolic 103–156; BP diastolic 53–69; PULSE 69–87; RESP 16–22; TEMP 36.3–37.3; O2SAT 90–100
[2023-10-18] MEDS: FUROSEMIDE INJ 40 MG/4 ML VIAL 20 MG IV PUSH (01:14)
--- NOTE | 2023-10-18 01:16 | P.PNCROSS_ITS ---
Event Note Event Note Event Note: Rapid response was called to patient's room due to acute respiratory distress r equiring 8 L of oxygen. Upon arrival to patient's room patient is noted to have some respiratory distress and cough on supplemental oxygen by nasal cannula. Subjective: Short of breath Objective: Patient is on supplemental oxygen noted moderate respiratory distress and cough. Vitals Blood pressure 100/60 saturation 92% on 8 L of supplemental oxygen General: Acutely ill-looking, patient with cough noted to be productive. HEENT: Atraumatic normocephalic PERRLA EOM intact neck is supple no JVD no lymphadenopathies Respiratory: Coarse breath sounds Cardiovascular: Irregularly irregular rhythm, tachycardic Abdomen: Soft nontender nondistended no hepatosplenomegaly. 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 Acute hypoxic respiratory failure: On supplemental oxygen 8 L by nasal cannula saturating 93% will obtain stat CBC, BMP, magnesium, phosphorous, brain natriuretic peptide, blood cultures, chest x-ray, ABG. Breathing treatments, Mucomyst. Will transfer to IMU
[2023-10-18] MEDS: SODIUM PHOSPHATE 20 MM in DEXTROSE 5% IN WATER 250 ML 50 MM IVPB (01:20)
[2023-10-18] MEDS: POTASSIUM CHLORIDE INJ 40 MEQ in SODIUM CHLORIDE 0.9% IV 500 ML 130 MEQ IVPB ×2 (01:47→14:04)
--- NOTE | 2023-10-18 02:52 | PCRCNOTE ---
Pt refused her 0200 tx. Stating she would like to wait until the morning for her next tx, 0800.
[2023-10-18] MEDS: ALBUTEROL SULFATE NEB 2.5 MG/3 ML INH INHALATION ×3 (07:25→21:22)
[2023-10-18] MEDS: IPRATROPIUM BR 0.02% INH SOLN 0.5 MG/2.5 ML VIAL INHALATION ×3 (07:25→21:22)
[2023-10-18 08:23] LABS: Basophils Absolute Auto 0.1 K/mm3 (0.0-0.1); Basophils Percent Auto 0.8 % (0.2-1.2); Eosinophils Percent Auto 0.2 % (0-4.4); Hematocrit 36.6 % (37.0-47.0); Hemoglobin 11.7 g/dL (12.0-15.0); Immature Granulocyte Absolute 0.15 K/mm3 (0.00-0.031); Immature Granulocyte Percent A 1.2 % (0-0.5); Lymphocytes Absolute Auto 1.98 K/mm3 (0.9-3.2); Lymphocytes Percent Auto 15.8 % (18.3-44.2); Mean Corpuscular Hemoglobin 29.8 pg (26-34); Mean Corpuscular Volume 93.4 fl (80-100); Mean Platelet Volume 10.6 fl (7.4-10.4); Monocytes Absolute Auto 0.8 K/mm3 (0.1-0.6); Monocytes Percent Auto 6.6 % (2.6-8.5); Neutrophils Absolute Auto 9.4 K/mm3 (1.3-6.7); Neutrophils Percent Auto 75.4 % (45.5-73.1); Platelet Count Result 174 k/mm3 (150-375); Red Blood Count 3.92 M/mm3 (4.2-5.4); Red Cell Distribution Width 14.6 % (11.5-14.5); White Blood Count 12.5 K/mm3 (4.5-10.0)
[2023-10-18 08:27] LABS: Alveolar/Arterial O2 Gradient 270.2 mmHg; Base Excess ABG 2.3 mEq/l (+/-2.0); Fractional Inspired Oxygen 50 %; HCO3 ABG 25.3 mEq/l (22.0-26.0); Oxygen Content ABG 15.4 %vol (16.0-22.0); PCO2 ABG 34.4 mmHg (35.0-45.0); PO2 FiO2 Ratio Arterial Blood 0.95 %; Total Hemoglobin 12.8 g/dL (12.0-18.0); pH ABG 7.485 (7.350-7.450)
[2023-10-18 08:29] LABS: Oxygen Saturation ABG 86.8 % (95.0-100.0); PO2 ABG 47.6 mmHg (80.0-100.0)
[2023-10-18 08:30] LABS: Device HIGH FLOW NASAL CANN; Oxyhemoglobin 85.6 % THb (90.0-100.0); Site Drawn RIGHT BRACHIAL
[2023-10-18 08:35] LABS: Alanine Aminotransferase 28 U/L (6-35); Alkaline Phosphatase 93 U/L (38-126); Anion Gap 6 mmol/L (8-16); Aspartate Amino Transferase 64 U/L (14-36); Bilirubin,Total 1.6 mg/dL (0.2-1.3); Blood Urea Nitrogen 27 mg/dL (7-17); Calcium 7.5 mg/dL (8.4-10.2); Carbon Dioxide 30 mmol/L (22-30); Chloride 106 mmol/L (98-107); Estimated CRCL calculation 34 ml/min; Estimated Glomerular Filt Rate 52; Glucose 66 mg/dL (65-110); Magnesium 1.9 mg/dL (1.6-2.3); Potassium 2.9 mmol/L (3.4-5.0); Sodium 142 mmol/L (137-145)
[2023-10-18 08:35] LABS: Glucose Point of Care 62 mg/dl (65-105)
[2023-10-18] MEDS: LOSARTAN POTASSIUM 50 MG TABLET PO (08:42)
[2023-10-18] MEDS: dilTIAZem HCL CD 120 MG CAP.24HR PO (08:42)
[2023-10-18] MEDS: ATORVASTATIN 40 MG TABLET 80 MG PO (08:42)
[2023-10-18] MEDS: GABAPENTIN 300 MG CAPSULE PO ×3 (08:42→17:40)
[2023-10-18] MEDS: ENOXAPARIN 40 MG/0.4 ML SYRINGE SUB-Q (08:43)
[2023-10-18] MEDS: FUROSEMIDE INJ 40 MG/4 ML VIAL IV PUSH ×2 (08:43→17:40)
[2023-10-18] MEDS: LIDOCAINE 5% PATCH 2 PATCH TOPICAL (08:44)
[2023-10-18] MEDS: BUDESONIDE RESPULE NEB 0.5 MG/2 ML AMP INHALATION (08:44)
--- NOTE | 2023-10-18 09:07 | PM.CNCAR ---
Assessment and Plan Assessment and plan (1) Atrial fibrillation: Code(s): I48.91 - Unspecified atrial fibrillation Status: Acute Assessment and Plan: This is a new diagnosis. She has already been started on p.o. diltiazem, which is providing adequate rate control. Continue current dose of diltiazem 120mg daily She has a CHADs2 Vasc score of 4 (age, gender, HTN), so anticoagulation is indicated. Will start her on apixaban 5mg b.i.d. Can discuss care home management options including DCCV with her buttonhole marker at [facility] after discharge If she remains rate controlled today, can d/c telemetry Echo showed normal LVEF, grade III diastolic dysfunction, no significant valvular abnormalities Will have pacer interrogated Cardiology will sign off please call with any questions. (2) Hypokalemia: Code(s): E87.6 - Hypokalemia Status: Acute Assessment and Plan: K+ 2.9 this morning, replaced. Repeat BMP tomorrow (3) RSV infection: Code(s): B33.8 - Other specified viral diseases Status: Acute Assessment and Plan: Requiring high flow O2. She is on abx now for pneumonia as well. Management per hospitalist service. (4) Acute hypoxic respiratory failure: Code(s): J96.01 - Acute respiratory failure with hypoxia Status: Acute Assessment and Plan: Secondary to above. Management per hospitalist. History of Present Illness History of Present Illness Consult date/time: 10/18/23 09:07 Requesting physician: Michelle Griffin APN-C Consult reason: atrial fibrillation Reason For Visit: RSV Infection, Acute Hypoxic Respiratory Failure Narrative: Claudia Mac is an 88 year old female admitted to the hospital for weakness and fever who has been found to be positive for RSV. Cardiology is being consulted because of new onset atrial fibrillation. She follows with a buttonhole marker at [facility] but can't remember who. She has a pacemaker she states was placed about a year ago. Her initial EKG showed sinus rhythm but EKG from yesterday afternoon shows atrial fibrillation with rate of 113bpm. She denies any history of atrial fibrillation. She denies feeling any palpitations or chest pain. Denies any history of arrhythmias, congestive heart failure, or coronary artery disease. Currently, she is laying comfortably in bed on high flow oxygen therapy and her heart rate is in the 80's. Review of Systems Review of Systems: All systems reviewed & are unremarkable except as noted in HPI and below PMFSH Past Medical History Medical History Abnormal chest xray Anxiety Diabetes mellitus Hyperlipemia Hypertension Obesity Shingles Surgical History Surgical History H/O: hysterectomy History of appendectomy Family History Family History Mother Hypertension Family history of diabetes mellitus in first degree relative Father Family history of coronary artery disease Sibling Family history of malignant neoplasm of breast in first degree relative Social History Social History Smoking status: Never smoker Alcohol intake: never Substance use: never Spiritual care concerns: No Meds Home Medications and Allergies Home Medications Medication Instructions Recorded Confirmed Type albuterol sulfate 90 mcg/actuation 90 mcg inhalation BID 10/12/20 10/15/23 History aerosol inhaler atorvastatin 80 mg tablet 80 mg PO DAILY 10/12/20 10/15/23 History gabapentin 300 mg capsule 300 mg PO TID #90 caps 10/12/20 10/15/23 Rx glimepiride 2 mg tablet 2 mg PO DAILY 10/12/20 10/15/23 History lorazepam 0.5 mg tablet 0.5 mg PO TID 10/12/20 10/15/23 History lidocaine 5 % topical patch 1 patch topical DAILY #1 ea 10/30/20 10/15/23 Rx l
[2023-10-18 09:45] LABS: Glucose Point of Care 122 mg/dl (65-105)
[2023-10-18] MEDS: LORazepam (*CRX) 0.5 MG TABLET PO ×3 (10:43→17:40)
[2023-10-18] MEDS: VANCOMYCIN 2,000 MG/NS 500 ML 2,000 MG/500 ML BAG 250 MG IVPB (10:43)
--- NOTE | 2023-10-18 10:47 | P.PNIM_ITS ---
Progress Note: A&P Assessment and Plan (1) RSV infection: Code(s): B33.8 - Other specified viral diseases Status: Acute Assessment and Plan: * Head CT was negative for any acute process. * RSV positive respiratory panel. * Interval CXR from yesterday is showing a development of PNA. * BC drawn and pending. * nebs, supportive care * Pt with interval worsening of overall respiratory status and is now in IMU requiring High flow oxygen. She has had to be titrated up to 60% FiO2 and 30L flow. (2) Acute hypoxic respiratory failure: Code(s): J96.01 - Acute respiratory failure with hypoxia Status: Acute Assessment and Plan: * Continue supplemental oxygen with titration to keep sats up. * Pt wears no oxygen at baseline. * Continue to monitor respiratory status. * Pt with Rapid response last evening. Worsening of Acute hypoxic respiratory failure. * Continue IMU care with telemetry and close monitoring. * Continue High flow oxygen of 30L and 65% FiO2. * Check ABG at 1400 * Titrate oxygen as able to. * Continue Duonebs Q6 hrs * Add Pulmicort Q12 hrs; * Consult Pulmonology * CTA PE protocol performed and negative for PE, but shows a PNA in all lobes additionally with some intraabdominal findings as well that are pertinent and will be explored. * Pt's overall status is currently guarded. (3) Abnormal chest xray: Code(s): R93.89 - Abnormal findings on diagnostic imaging of other specified body structures Status: Acute Assessment and Plan: * Repeat CXR from yesterday shows an interval development of PNA. * Rocephin and Azithromycin started. * WBC increased reflecting the acute infection. * Continue supportive care outlined in problems #2 and #3. * Continue Supplemental oxygen and titrate/wean as able to. * Sputum culture ordered. * Blood culture is pending. * Obtain urine antigens for Legionella and Strep Pneumo * Repeat CXR this AM showed worsening of PNA and it is in all lobes. * CTA results are negative for PE, but show a PNA in all lobes additionally with some intraabdominal findings as well that are pertinent and will be explored. * Pt's overall status is currently guarded. (4) Atrial fibrillation: Qualifiers: Atrial fibrillation type: unspecified Qualified Code(s): I48.91 - Unspecified atrial fibrillation Code(s): I48.91 - Unspecified atrial fibrillation Status: Acute Assessment and Plan: * Pt with new onset last evening. * Started on Diltiazem CD 120 mg which is providing adequate rate control. * CHADs Vasc 2 score of 4 * Serial trops were elevated and flat, suspecting strongly demand ischemia as EKG showed A-fib RVR * ECHO performed showing Hyperdynamic LVSF with EF of >70% and a Grade 3 diastolic dysfunction. * Continue telemetry * Cardiolgy was consulted and starting on Eliquis 5 mg BID. * Pacemaker to be interrogated. * Cards signed off. (5) Hypokalemia: Code(s): E87.6 - Hypokalemia Status: Acute Assessment and Plan: * Pt received 40 mEq last evening after she had Potassium of 2.8. * Repeat today is 2.9. * A second 40 mEq K+ rider is ordered at this time. * Will continue to monitor labs and telemetry. (6) Abdominal mass, left upper quadrant: Code(s): R19.02 - Left upper quadrant abdominal swelling, mass and lump Status: Acute Assessment and Plan: * Coincidental finding on CTA PE protocol show multiple masses that are concerning for malignancy around the pancreas, in addition, there is cirrhosis of the liver, and chest LN.
--- NOTE | 2023-10-18 10:47 | PM.IMPN ---
Progress Note: A&P Assessment and Plan (1) RSV infection: Code(s): B33.8 - Other specified viral diseases Status: Acute Assessment and Plan: Head CT was negative for any acute process. RSV positive respiratory panel. Interval CXR from yesterday is showing a development of PNA. BC drawn and pending. nebs, supportive care Pt with interval worsening of overall respiratory status and is now in IMU requiring High flow oxygen. She has had to be titrated up to 60% FiO2 and 30L flow. (2) Acute hypoxic respiratory failure: Code(s): J96.01 - Acute respiratory failure with hypoxia Status: Acute Assessment and Plan: Continue supplemental oxygen with titration to keep sats up. Pt wears no oxygen at baseline. Continue to monitor respiratory status. Pt with Rapid response last evening. Worsening of Acute hypoxic respiratory failure. Continue IMU care with telemetry and close monitoring. Continue High flow oxygen of 30L and 65% FiO2. Check ABG at 1400 Titrate oxygen as able to. Continue Duonebs Q6 hrs Add Pulmicort Q12 hrs; Consult Pulmonology CTA PE protocol performed and negative for PE, but shows a PNA in all lobes additionally with some intraabdominal findings as well that are pertinent and will be explored. Pt's overall status is currently guarded. (3) Abnormal chest xray: Code(s): R93.89 - Abnormal findings on diagnostic imaging of other specified body structures Status: Acute Assessment and Plan: Repeat CXR from yesterday shows an interval development of PNA. Rocephin and Azithromycin started. WBC increased reflecting the acute infection. Continue supportive care outlined in problems #2 and #3. Continue Supplemental oxygen and titrate/wean as able to. Sputum culture ordered. Blood culture is pending. Obtain urine antigens for Legionella and Strep Pneumo Repeat CXR this AM showed worsening of PNA and it is in all lobes. CTA results are negative for PE, but show a PNA in all lobes additionally with some intraabdominal findings as well that are pertinent and will be explored. Pt's overall status is currently guarded. (4) Atrial fibrillation: Qualifiers: Atrial fibrillation type: unspecified Qualified Code(s): I48.91 - Unspecified atrial fibrillation Code(s): I48.91 - Unspecified atrial fibrillation Status: Acute Assessment and Plan: Pt with new onset last evening. Started on Diltiazem CD 120 mg which is providing adequate rate control. CHADs Vasc 2 score of 4 Serial trops were elevated and flat, suspecting strongly demand ischemia as EKG showed A-fib RVR ECHO performed showing Hyperdynamic LVSF with EF of >70% and a Grade 3 diastolic dysfunction. Continue telemetry Cardiolgy was consulted and starting on Eliquis 5 mg BID. Pacemaker to be interrogated. Cards signed off. (5) Hypokalemia: Code(s): E87.6 - Hypokalemia Status: Acute Assessment and Plan: Pt received 40 mEq last evening after she had Potassium of 2.8. Repeat today is 2.9. A second 40 mEq K+ rider is ordered at this time. Will continue to monitor labs and telemetry. (6) Abdominal mass, left upper quadrant: Code(s): R19.02 - Left upper quadrant abdominal swelling, mass and lump Status: Acute Assessment and Plan: Coincidental finding on CTA PE protocol show multiple masses that are concerning for malignancy around the pancreas, in addition, there is cirrhosis of the liver, and chest LN. This will be examined with CT abd and pelvis tomorrow hopefully when her overall respiratory status has interval improvement and she can once again have more contrast given she just received some today. I spoke with pt's daughter, Renee, as pt herself is a poor historian, and she verifies that she has no history of any cancer anywhere in her body that is known. I explained the findings on CT scan and she will have repeat CT
[2023-10-18 11:13] LABS: Glucose Point of Care 158 mg/dl (65-105)
[2023-10-18 13:48] LABS: Alveolar/Arterial O2 Gradient 329.8 mmHg; Base Excess ABG 2.6 mEq/l (+/-2.0); Fractional Inspired Oxygen 65 %; HCO3 ABG 26.7 mEq/l (22.0-26.0); Oxygen Content ABG 17.5 %vol (16.0-22.0); Oxygen Saturation ABG 97.3 % (95.0-100.0); Oxyhemoglobin 95.9 % THb (90.0-100.0); PCO2 ABG 39.5 mmHg (35.0-45.0); PO2 ABG 90.7 mmHg (80.0-100.0); Total Hemoglobin 12.9 g/dL (12.0-18.0); pH ABG 7.448 (7.350-7.450)
[2023-10-18 13:50] LABS: Device HIGH FLOW NASAL CANN; Site Drawn LEFT BRACHIAL
--- NOTE | 2023-10-18 14:26 | PM.CNPUL ---
Assessment and Plan Assessment and plan (1) RSV infection: Code(s): B33.8 - Other specified viral diseases Status: Acute (2) Pneumonia: Code(s): J18.9 - Pneumonia, unspecified organism Status: Acute Assessment and Plan: This 88-year-old female patient was brought in with respiratory distress, confusion and hypoxemia, along with a history of diarrhea and vomiting. Bilateral pneumonia has been detected via chest imaging studies. The patient has tested positive for an RSV infection. It's plausible that this elderly patient, in addition to the current RSV infection, may be experiencing bacterial pneumonia. In fact, it's not uncommon for co-infections to manifest in such circumstances, typically associated with Streptococcus pneumoniae or Staphylococcus aureus. Plan: Maintain the administration of ceftriaxone and azithromycin as previously ordered. Pending results from MRSA screening, I would consider adding vancomycin to the current antibiotic regimen. I would also continue with the short-acting bronchodilators but suggest discontinuation of nebulized budesonide. I'll monitor the situation in collaboration with you. 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 insulin use: without correction use Diabetes mellitus complication status: with other specified complication Qualified Code(s): E11.69 - Type 2 diabetes mellitus with other specified complication Code(s): E11.9 - Type 2 diabetes mellitus without complications Status: Chronic (5) Atrial fibrillation: Qualifiers: Atrial fibrillation type: unspecified Qualified Code(s): I48.91 - Unspecified atrial fibrillation Code(s): I48.91 - Unspecified atrial fibrillation Status: Acute (6) Abdominal mass, left upper quadrant: Code(s): R19.02 - Left upper quadrant abdominal swelling, mass and lump Status: Acute History of Present Illness History of Present Illness Consult date: 10/18/23 Chief complaint: RSV Infection, Acute Hypoxic Respiratory Failure Narrative: An 88-year-old female was admitted following a two-day history of confusion, diarrhea, and vomiting. Her medical history includes type 2 diabetes, hypertension, pacemaker implantation, and hyperlipidemia. Approximately a week prior to this admission, she was assessed in the emergency room for vertigo and a urinary tract infection, and was subsequently discharged with an antibiotic prescription. Roughly two days before this admission, she began experiencing diarrhea, vomiting, cough, and shortness of breath, but no fever, chills, or hemoptysis were reported. Upon arrival at the Emergency Department, she was found to be hypoxic, and chest imaging revealed bilateral infiltrates. A chest CT scan showed bilateral consolidations without pleural effusions, and a suspicious mass in the left upper quadrant suggestive of malignancy. Further investigation using PCR confirmed an RSV infection. Currently, she is receiving high-flow nasal cannula for hypoxemia and antibiotics for community-acquired pneumonia. Cardiology Services have also evaluated her for atrial fibrillation. . Review of Systems Review of Systems: All systems reviewed & are unremarkable except as noted in HPI and below (HPI and below) [facility] Past Medical History Medical History (Updated 10/18/23 @ 14:36 by Nicolas Guardado MD) Abdominal mass, left upper quadrant Abnormal chest xray Anxiety Diabetes mellitus Hyperlipemia Hypertension Obesity Shingles Surgical History Surgical History H/O: hysterectomy History of appendectomy Family History Family History Mother Hypertension Family history of diabetes markelli
[2023-10-18 16:20] LABS: Glucose Point of Care 82 mg/dl (65-105)
[2023-10-18] MEDS: APIXABAN 5 MG TABLET PO (22:06)
[2023-10-18 22:37] LABS: Add Urine Microscopic? YES; Appearance Urine Clear (Clear); Color Urine Yellow (Yellow)
[2023-10-18 22:38] LABS: Bilirubin Urine Negative (Negative); Blood Urine 1+ (Negative); Glucose Urine UA Negative (Negative); Ketones Urine Negative (Negative); Leukocyte Esterase Ur Negative LEU/UL (Negative); Nitrate Urine Negative (Negative); Protein Urine Negative (Negative); Urobilinogen Urine 0.2 mg/dL (<2.0); pH Urine 5.5 (5.0-9.0)
[2023-10-18 22:42] LABS: Squamous Epithelial Cell Urine Occasional /hpf (Few); WBC Urine 0-3 /hpf
[2023-10-18 23:48] LABS: MRSA (PCR) NOT DETECTED (NOT DETECTE)
[2023-10-19] VITALS (26 sets, daily range): BP systolic 114–136; BP diastolic 54–61; PULSE 66–87; RESP 18–22; TEMP 36.3–36.9; O2SAT 93–100
[2023-10-19 01:02] LABS: Glucose Point of Care 114 mg/dl (65-105)
[2023-10-19] MEDS: IPRATROPIUM BR 0.02% INH SOLN 0.5 MG/2.5 ML VIAL INHALATION ×4 (03:12→21:12)
[2023-10-19] MEDS: ALBUTEROL SULFATE NEB 2.5 MG/3 ML INH INHALATION ×4 (03:12→21:12)
[2023-10-19 05:19] LABS: Basophils Absolute Auto 0.1 K/mm3 (0.0-0.1); Basophils Percent Auto 0.7 % (0.2-1.2); Eosinophils Absolute Auto 0.1 K/mm3 (0-0.3); Eosinophils Percent Auto 0.5 % (0-4.4); Hematocrit 35.6 % (37.0-47.0); Hemoglobin 11.4 g/dL (12.0-15.0); Immature Granulocyte Absolute 0.41 K/mm3 (0.00-0.031); Immature Granulocyte Percent A 4.4 % (0-0.5); Lymphocytes Absolute Auto 2.07 K/mm3 (0.9-3.2); Lymphocytes Percent Auto 22.1 % (18.3-44.2); Mean Corpuscular Hemoglobin 30.1 pg (26-34); Mean Corpuscular Volume 93.9 fl (80-100); Mean Platelet Volume 10.5 fl (7.4-10.4); Monocytes Absolute Auto 0.9 K/mm3 (0.1-0.6); Monocytes Percent Auto 9.9 % (2.6-8.5); Neutrophils Absolute Auto 5.9 K/mm3 (1.3-6.7); Neutrophils Percent Auto 62.4 % (45.5-73.1); Platelet Count Result 201 k/mm3 (150-375); Red Blood Count 3.79 M/mm3 (4.2-5.4); Red Cell Distribution Width 14.6 % (11.5-14.5); White Blood Count 9.4 K/mm3 (4.5-10.0)
[2023-10-19 05:42] LABS: Alanine Aminotransferase 38 U/L (6-35); Albumin Level 2.8 g/dL (3.5-5.1); Alkaline Phosphatase 135 U/L (38-126); Anion Gap 6 mmol/L (8-16); Aspartate Amino Transferase 97 U/L (14-36); Bilirubin,Total 1.3 mg/dL (0.2-1.3); Blood Urea Nitrogen 26 mg/dL (7-17); Calcium 7.2 mg/dL (8.4-10.2); Carbon Dioxide 34 mmol/L (22-30); Chloride 101 mmol/L (98-107); Estimated CRCL calculation 31 ml/min; Estimated Glomerular Filt Rate 47; Glucose 94 mg/dL (65-110); Magnesium 1.7 mg/dL (1.6-2.3); Phosphorus 2.6 mg/dL (2.5-4.5); Potassium 3.3 mmol/L (3.4-5.0); Sodium 141 mmol/L (137-145)
[2023-10-19 08:31] LABS: Glucose Point of Care 124 mg/dl (65-105)
[2023-10-19] MEDS: FUROSEMIDE INJ 40 MG/4 ML VIAL IV PUSH ×2 (10:06→18:08)
[2023-10-19] MEDS: LIDOCAINE 5% PATCH 2 PATCH TOPICAL (10:06)
[2023-10-19] MEDS: ATORVASTATIN 40 MG TABLET 80 MG PO (10:07)
[2023-10-19] MEDS: GABAPENTIN 300 MG CAPSULE PO ×3 (10:07→18:08)
[2023-10-19] MEDS: LORazepam (*CRX) 0.5 MG TABLET PO ×3 (10:08→18:09)
[2023-10-19] MEDS: dilTIAZem HCL CD 120 MG CAP.24HR PO (10:08)
[2023-10-19] MEDS: APIXABAN 5 MG TABLET PO (10:08)
[2023-10-19] MEDS: LOSARTAN POTASSIUM 50 MG TABLET PO (10:08)
--- NOTE | 2023-10-19 10:47 | PM.PNPUL ---
Progress Note: A&P Assessment and Plan (1) Pneumonia: Code(s): J18.9 - Pneumonia, unspecified organism Status: Acute Assessment and Plan: This 88-year-old female patient was brought in with respiratory distress, confusion and hypoxemia, along with a history of diarrhea and vomiting. Bilateral pneumonia has been detected via chest imaging studies. The patient has tested positive for an RSV infection. It's plausible that this elderly patient, in addition to the current RSV infection, may be experiencing bacterial pneumonia. In fact, it's not uncommon for co-infections to manifest in such circumstances, typically associated with Streptococcus pneumoniae or Staphylococcus aureus. There has been no significant change in her respiratory status over the last 24 hours although she stated she is doing better. Gas exchange unchanged and physical exam findings also same as before. MRSA screening pending Plan: Continue with current antibiotic regimen pending MRSA screening. Monitor gas exchange continue with short-acting bronchodilators. (2) Atrial fibrillation: Qualifiers: Atrial fibrillation type: unspecified Qualified Code(s): I48.91 - Unspecified atrial fibrillation Code(s): I48.91 - Unspecified atrial fibrillation Status: Acute (3) Diabetes mellitus: Qualifiers: Diabetes mellitus type: type 2 Diabetes mellitus skilled nursing insulin use: without press tender long goods use Diabetes mellitus complication status: with other specified complication Qualified Code(s): E11.69 - Type 2 diabetes mellitus with other specified complication Code(s): E11.9 - Type 2 diabetes mellitus without complications Status: Chronic (4) Acute hypoxic respiratory failure: Code(s): J96.01 - Acute respiratory failure with hypoxia Status: Acute (5) Abdominal mass, left upper quadrant: Code(s): R19.02 - Left upper quadrant abdominal swelling, mass and lump Status: Acute Subjective Date/time seen: 10/19/23 10:47 Interval history: Patient has no new respiratory symptoms. She remains on supplemental oxygen via nasal cannula. She stated she is doing little better. Review of Systems Review of Systems: All systems reviewed & are unremarkable except as noted in HPI and below (HPI and below) Exam Narrative: GENERAL APPEARANCE: Well developed, well nourished, alert and cooperative, who appears to be in [id number] respiratory distress while on high-flow nasal cannula at 65% FiO2. SKIN: Inspection of the skin reveals no rashes, ulcerations or petechiae. HEENT: Sclerae anicteric and conjunctivae pink and moist. Extraocular movements were intact and pupils were equal, round, dry oral mucosa NECK: Supple. There was no thyroid enlargement, and no tenderness, or masses were felt. CHEST: Normal AP diameter and normal contour without any kyphoscoliosis. LUNGS: Crackles at bases posteriorly no wheezing CARDIAC: There was a regular rate and rhythm without any murmurs, gallops, rubs. ABDOMEN: Soft and nontender with normal bowel sounds. There was no organomegaly. LYMPH NODES: No lymphadenopathy was appreciated in the neck. EXTREMITIES: No cyanosis, clubbing or edema. NEUROLOGIC: Alert and oriented x 3. Normal affect. Objective Data Vital Signs Vital Signs: Vital Signs - 24 hr 10/18/23 11:45 10/18/23 13:05 10/18/23 13:05 Temperature 36.3 C L Pulse Rate 70 85 85 Respiratory Rate 22 H 18 18 Blood Pressure 121/54 L Pulse Oximetry 97 96 Oxygen Delivery High Flow Therapy with Na Oxygen Flow Rate 30 Fraction of Inspired Oxygen 65 10/18/23 13:15 10/18/23 15:33 10/18/23 12:00 Temperature 37.3 C Pulse Rate 84 69 Respiratory Rate 18 22 H Blood Pressure 132/60 Pulse Oximetry 98 97 Oxygen Delivery High Flow Therapy with Na Oxygen Flow Rate 30 Fraction of Inspired Oxygen 65 10/18/23 16:00 10/18/23 12:00 10/18/23 14:00 Temperature Pulse Rate 84 75 R
[2023-10-19 12:25] LABS: Glucose Point of Care 173 mg/dl (65-105)
[2023-10-19] MEDS: POTASSIUM CHLORIDE 20 MEQ ER TABLET 40 MEQ PO (14:02)
--- NOTE | 2023-10-19 14:26 | P.PNIM_ITS ---
Progress Note: A&P Assessment and Plan (1) RSV infection: Code(s): B33.8 - Other specified viral diseases Status: Acute Assessment and Plan: * Head CT was negative for any acute process. * RSV positive respiratory panel. * Interval CXR from yesterday is showing a development of PNA. * BC drawn and pending. * nebs, supportive care * Pt with interval worsening of overall respiratory status and is now in IMU requiring High flow oxygen. She has had to be titrated up to 60% FiO2 and 30L flow. * Pulmonology consulted and gave recommendations for support and will continue to follow along with us. (2) Acute hypoxic respiratory failure: Code(s): J96.01 - Acute respiratory failure with hypoxia Status: Acute Assessment and Plan: * Continue supplemental oxygen with titration to keep sats up. * Pt wears no oxygen at baseline. * Continue to monitor respiratory status. * Pt with Rapid response 2 nights ago. Worsening of Acute hypoxic respiratory failure. * Continue IMU care with telemetry and close monitoring. * High flow oxygen has been decreased to 30L and 60% FiO2. * Check ABG at 1400 showed interval improvement. * Titrate oxygen as able to. * Continue Duonebs Q6 hrs * Consult Pulmonology * CTA PE protocol performed and negative for PE, but shows a PNA in all lobes additionally with some intraabdominal findings as well that are pertinent and will be explored. * Pt's overall status is currently guarded. * Continue Rocephin and Azithromycin for abx coverage and pt also received one dose of Vancomycin yesterday. * MRSA swab is negative. * Urine for strep Pneumo and Legionella are still pending. (3) Abnormal chest xray: Code(s): R93.89 - Abnormal findings on diagnostic imaging of other specified body structures Status: Acute Assessment and Plan: * Repeat CXR from yesterday shows an interval development of PNA. * Rocephin and Azithromycin started. * WBC increased reflecting the acute infection. * Continue supportive care outlined in problems #2 and #3. * Continue Supplemental oxygen and titrate/wean as able to. * Sputum culture ordered. * Blood culture is pending. * Obtain urine antigens for Legionella and Strep Pneumo * Repeat CXR this AM showed worsening of PNA and it is in all lobes. * CTA results are negative for PE, but show a PNA in all lobes additionally with some intraabdominal findings as well that are pertinent and will be explored. * Pt's overall status is currently guarded. (4) Atrial fibrillation: Qualifiers: Atrial fibrillation type: unspecified Qualified Code(s): I48.91 - Unspecified atrial fibrillation Code(s): I48.91 - Unspecified atrial fibrillation Status: Acute Assessment and Plan: * Pt with new onset last evening. * Started on Diltiazem CD 120 mg which is providing adequate rate control. * CHADs Vasc 2 score of 4 * Serial trops were elevated and flat, suspecting strongly demand ischemia as EKG showed A-fib RVR * ECHO performed showing Hyperdynamic LVSF with EF of >70% and a Grade 3 diastolic dysfunction. * Continue telemetry * Cardiolgy was consulted and starting on Eliquis 5 mg BID. * Pacemaker to be interrogated. * Cards signed off. (5) Hypokalemia: Code(s): E87.6 - Hypokalemia Status: Acute Assessment and Plan: * Pt received 40 mEq last evening after she had Potassium of 2.8. * Repeat today is 2.9. * A second 40 mEq K+ rider is ordered at this time. * Will continue to monitor labs and telemetry. * 10/19/23: Pt's K+ is improved to 3.3. Addition
--- NOTE | 2023-10-19 14:26 | PM.IMPN ---
Progress Note: A&P Assessment and Plan (1) RSV infection: Code(s): B33.8 - Other specified viral diseases Status: Acute Assessment and Plan: Head CT was negative for any acute process. RSV positive respiratory panel. Interval CXR from yesterday is showing a development of PNA. BC drawn and pending. nebs, supportive care Pt with interval worsening of overall respiratory status and is now in IMU requiring High flow oxygen. She has had to be titrated up to 60% FiO2 and 30L flow. Pulmonology consulted and gave recommendations for support and will continue to follow along with us. (2) Acute hypoxic respiratory failure: Code(s): J96.01 - Acute respiratory failure with hypoxia Status: Acute Assessment and Plan: Continue supplemental oxygen with titration to keep sats up. Pt wears no oxygen at baseline. Continue to monitor respiratory status. Pt with Rapid response 2 nights ago. Worsening of Acute hypoxic respiratory failure. Continue IMU care with telemetry and close monitoring. High flow oxygen has been decreased to 30L and 60% FiO2. Check ABG at 1400 showed interval improvement. Titrate oxygen as able to. Continue Duonebs Q6 hrs Consult Pulmonology CTA PE protocol performed and negative for PE, but shows a PNA in all lobes additionally with some intraabdominal findings as well that are pertinent and will be explored. Pt's overall status is currently guarded. Continue Rocephin and Azithromycin for abx coverage and pt also received one dose of Vancomycin yesterday. MRSA swab is negative. Urine for strep Pneumo and Legionella are still pending. (3) Abnormal chest xray: Code(s): R93.89 - Abnormal findings on diagnostic imaging of other specified body structures Status: Acute Assessment and Plan: Repeat CXR from yesterday shows an interval development of PNA. Rocephin and Azithromycin started. WBC increased reflecting the acute infection. Continue supportive care outlined in problems #2 and #3. Continue Supplemental oxygen and titrate/wean as able to. Sputum culture ordered. Blood culture is pending. Obtain urine antigens for Legionella and Strep Pneumo Repeat CXR this AM showed worsening of PNA and it is in all lobes. CTA results are negative for PE, but show a PNA in all lobes additionally with some intraabdominal findings as well that are pertinent and will be explored. Pt's overall status is currently guarded. (4) Atrial fibrillation: Qualifiers: Atrial fibrillation type: unspecified Qualified Code(s): I48.91 - Unspecified atrial fibrillation Code(s): I48.91 - Unspecified atrial fibrillation Status: Acute Assessment and Plan: Pt with new onset last evening. Started on Diltiazem CD 120 mg which is providing adequate rate control. CHADs Vasc 2 score of 4 Serial trops were elevated and flat, suspecting strongly demand ischemia as EKG showed A-fib RVR ECHO performed showing Hyperdynamic LVSF with EF of >70% and a Grade 3 diastolic dysfunction. Continue telemetry Cardiolgy was consulted and starting on Eliquis 5 mg BID. Pacemaker to be interrogated. Cards signed off. (5) Hypokalemia: Code(s): E87.6 - Hypokalemia Status: Acute Assessment and Plan: Pt received 40 mEq last evening after she had Potassium of 2.8. Repeat today is 2.9. A second 40 mEq K+ rider is ordered at this time. Will continue to monitor labs and telemetry. 10/19/23: Pt's K+ is improved to 3.3. Additional 40 mEq po ordered. (6) Abdominal mass, left upper quadrant: Code(s): R19.02 - Left upper quadrant abdominal swelling, mass and lump Status: Acute Assessment and Plan: Coincidental finding on CTA PE protocol show multiple masses that are concerning for malignancy around the pancreas, in addition, there is cirrhosis of the liver, and chest LN. This will be examined with CT abd and pelvis brittany
--- NOTE | 2023-10-19 14:37 | PCOTNOTE ---
The patient treatment was not able to be completed. Patient just got back to the room and is getting a breathing treatment. will follow up after treatment. Will plan to continue treatment per plan of care.
--- NOTE | 2023-10-19 14:57 | PCOTNOTE ---
The patient treatment was not able to be completed. Patient stated not today but will tomorrow. Will follow up. Will plan to continue treatment per plan of care.
[2023-10-19 15:52] LABS: Glucose Point of Care 93 mg/dl (65-105)
[2023-10-19 20:27] LABS: Glucose Point of Care 162 mg/dl (65-105)
[2023-10-19] MEDS: VANCOMYCIN 1,500 MG/NS 500 ML 1,500 MG/500 ML BAG 250 MG IVPB (21:02)
[2023-10-20] VITALS (26 sets, daily range): BP systolic 116–131; BP diastolic 50–78; PULSE 69–88; RESP 17–22; TEMP 36.2–36.8; O2SAT 90–98
[2023-10-20] MEDS: IPRATROPIUM BR 0.02% INH SOLN 0.5 MG/2.5 ML VIAL INHALATION ×3 (02:44→21:05)
[2023-10-20] MEDS: ALBUTEROL SULFATE NEB 2.5 MG/3 ML INH INHALATION ×3 (02:44→21:05)
[2023-10-20 04:39] LABS: Basophils Absolute Auto 0.1 K/mm3 (0.0-0.1); Basophils Percent Auto 0.9 % (0.2-1.2); Eosinophils Absolute Auto 0.1 K/mm3 (0-0.3); Eosinophils Percent Auto 0.8 % (0-4.4); Hemoglobin 11.9 g/dL (12.0-15.0); Immature Granulocyte Absolute 0.63 K/mm3 (0.00-0.031); Immature Granulocyte Percent A 6.6 % (0-0.5); Lymphocytes Absolute Auto 2.06 K/mm3 (0.9-3.2); Lymphocytes Percent Auto 21.7 % (18.3-44.2); Mean Corpuscular HGB Conc 32.2 g/dl (32-36); Mean Corpuscular Hemoglobin 29.8 pg (26-34); Mean Corpuscular Volume 92.7 fl (80-100); Monocytes Absolute Auto 1.4 K/mm3 (0.1-0.6); Monocytes Percent Auto 14.4 % (2.6-8.5); Neutrophils Absolute Auto 5.3 K/mm3 (1.3-6.7); Neutrophils Percent Auto 55.6 % (45.5-73.1); Platelet Count Result 221 k/mm3 (150-375); Red Blood Count 3.99 M/mm3 (4.2-5.4); Red Cell Distribution Width 14.6 % (11.5-14.5); White Blood Count 9.5 K/mm3 (4.5-10.0)
[2023-10-20 04:56] LABS: Alanine Aminotransferase 49 U/L (6-35); Albumin Level 3.1 g/dL (3.5-5.1); Alkaline Phosphatase 188 U/L (38-126); Anion Gap 5 mmol/L (8-16); Aspartate Amino Transferase 106 U/L (14-36); Bilirubin,Total 1.3 mg/dL (0.2-1.3); Blood Urea Nitrogen 21 mg/dL (7-17); Calcium 7.4 mg/dL (8.4-10.2); Carbon Dioxide 36 mmol/L (22-30); Chloride 97 mmol/L (98-107); Estimated CRCL calculation 34 ml/min; Estimated Glomerular Filt Rate 52; Glucose 125 mg/dL (65-110); Magnesium 1.9 mg/dL (1.6-2.3); Potassium 3.4 mmol/L (3.4-5.0); Sodium 138 mmol/L (137-145)
[2023-10-20 08:00] LABS: Glucose Point of Care 131 mg/dl (65-105)
--- NOTE | 2023-10-20 10:03 | PCPTNOTE ---
10/20/23 MW PT - Re-eval completed following RAPID call
[2023-10-20] MEDS: LIDOCAINE 5% PATCH 2 PATCH TOPICAL (10:04)
[2023-10-20] MEDS: FUROSEMIDE INJ 40 MG/4 ML VIAL IV PUSH ×2 (10:04→17:25)
[2023-10-20] MEDS: LORazepam (*CRX) 0.5 MG TABLET PO (10:21)
[2023-10-20] MEDS: dilTIAZem HCL CD 120 MG CAP.24HR PO (10:21)
[2023-10-20] MEDS: ATORVASTATIN 40 MG TABLET 80 MG PO (10:21)
[2023-10-20] MEDS: APIXABAN 5 MG TABLET PO ×2 (10:21→21:27)
[2023-10-20] MEDS: GABAPENTIN 300 MG CAPSULE PO (10:21)
[2023-10-20] MEDS: LOSARTAN POTASSIUM 50 MG TABLET PO (10:22)
[2023-10-20 11:24] LABS: Glucose Point of Care 133 mg/dl (65-105)
--- NOTE | 2023-10-20 11:40 | PM.PNPUL ---
Progress Note: A&P Assessment and Plan (1) Pneumonia: Code(s): J18.9 - Pneumonia, unspecified organism Status: Acute Assessment and Plan: This 88-year-old female patient was brought in with respiratory distress, confusion and hypoxemia, along with a history of diarrhea and vomiting. Bilateral pneumonia has been detected via chest imaging studies. The patient has tested positive for an RSV infection. It's plausible that this elderly patient, in addition to the current RSV infection, may be experiencing bacterial pneumonia. In fact, it's not uncommon for co-infections to manifest in such circumstances, typically associated with Streptococcus pneumoniae or Staphylococcus aureus. There has been no significant change in her respiratory status over the last 24 hours although she stated she is doing better. Gas exchange unchanged and physical exam findings also same as before. MRSA screening negative. Lower lobe infiltrates with air bronchograms could also be related to atelectasis. On physical exam the patient has rhonchi bilaterally. She is on a diuretic. Plan: Continue with current antibiotic regimen. Will probably discontinue vancomycin over next day or so if WBC remains within normal range. Added nebulized Mucomyst. 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 She stated she feels better. She continues to require high FiO2. She still on antibiotics, with no significant improvement of gas exchange over the last 24 hours. WBC back into the normal range. Review of Systems Review of Systems: All systems reviewed & are unremarkable except as noted in HPI and below (HPI and below) Exam Narrative: GENERAL APPEARANCE: Well developed, well nourished, alert and cooperative, who appears to be in [id number] respiratory distress while on high-flow nasal cannula at 65% FiO2. SKIN: Inspection of the skin reveals no rashes, ulcerations or petechiae. HEENT: Sclerae anicteric and conjunctivae pink and moist. Extraocular movements were intact and pupils were equal, round, dry oral mucosa NECK: Supple. There was no thyroid enlargement, and no tenderness, or masses were felt. CHEST: Normal AP diameter and normal contour without any kyphoscoliosis. LUNGS: Crackles at bases posteriorly no wheezing CARDIAC: There was a regular rate and rhythm without any murmurs, gallops, rubs. ABDOMEN: Soft and nontender with normal bowel sounds. There was no organomegaly. LYMPH NODES: No lymphadenopathy was appreciated in the neck. EXTREMITIES: No cyanosis, clubbing or edema. NEUROLOGIC: Alert and oriented x 3. Normal affect. Objective Data Vital Signs Vital Signs: Vital Signs - 24 hr 10/19/23 12:00 10/19/23 14:34 10/19/23 14:56 Temperature Pulse Rate 71 69 Respiratory Rate 20 20 Blood Pressure Pulse Oximetry 93 Oxygen Delivery High Flow Therapy with Na Oxygen Flow Rate 30 Fraction of Inspired Oxygen 60 10/19/23 15:46 10/19/23 16:00 10/19/23 12:00 Temperature 36.6 C Pulse R
--- NOTE | 2023-10-20 13:00 | P.PNIM_ITS ---
Progress Note: A&P Assessment and Plan (1) RSV infection: Code(s): B33.8 - Other specified viral diseases Status: Acute Assessment and Plan: * Head CT was negative for any acute process. * RSV positive respiratory panel. * Interval CXR from yesterday is showing a development of PNA. * BC drawn and pending. * nebs, supportive care * Pt with interval worsening of overall respiratory status and is now in IMU requiring High flow oxygen. She has had to be titrated up to 60% FiO2 and 30L flow. * Pulmonology consulted and gave recommendations for support and will continue to follow along with us. * 10/20/23: Interval improvement in overall respiratory status. Now on oximizer at 30L. Continuing all other treatments with the addition of Mucomyst per Pulmonology recommendations. Order for titration as permits is given. (2) Acute hypoxic respiratory failure: Code(s): J96.01 - Acute respiratory failure with hypoxia Status: Acute Assessment and Plan: * Continue supplemental oxygen with titration to keep sats up. * Pt wears no oxygen at baseline. * Continue to monitor respiratory status. * Pt with Rapid response 2 nights ago. Worsening of Acute hypoxic respiratory failure. * Continue IMU care with telemetry and close monitoring. * High flow oxygen has been decreased to 30L and 60% FiO2. * Check ABG at 1400 showed interval improvement. * Titrate oxygen as able to. * Continue Duonebs Q6 hrs * Consult Pulmonology * CTA PE protocol performed and negative for PE, but shows a PNA in all lobes additionally with some intraabdominal findings as well that are pertinent and will be explored. * Pt's overall status is currently guarded. * Continue Rocephin and Azithromycin for abx coverage and pt also received one dose of Vancomycin yesterday. * MRSA swab is negative. * Urine for strep Pneumo and Legionella are still pending. * 10/20/23: See #1 (3) Abnormal chest xray: Code(s): R93.89 - Abnormal findings on diagnostic imaging of other specified body structures Status: Acute Assessment and Plan: * Repeat CXR from yesterday shows an interval development of PNA. * Rocephin and Azithromycin started. * WBC increased reflecting the acute infection. * Continue supportive care outlined in problems #2 and #3. * Continue Supplemental oxygen and titrate/wean as able to. * Sputum culture ordered. * Blood culture is pending. * Obtain urine antigens for Legionella and Strep Pneumo * Repeat CXR this AM showed worsening of PNA and it is in all lobes. * CTA results are negative for PE, but show a PNA in all lobes additionally with some intraabdominal findings as well that are pertinent and will be explored. * Pt's overall status is currently guarded. * 10/20/23: See #1 (4) Atrial fibrillation: Qualifiers: Atrial fibrillation type: unspecified Qualified Code(s): I48.91 - Unspecified atrial fibrillation Code(s): I48.91 - Unspecified atrial fibrillation Status: Acute Assessment and Plan: * Pt with new onset last evening. * Started on Diltiazem CD 120 mg which is providing adequate rate control. * CHADs Vasc 2 score of 4 * Serial trops were elevated and flat, suspecting strongly demand ischemia as EKG showed A-fib RVR * ECHO performed showing Hyperdynamic LVSF with EF of >70% and a Grade 3 diastolic dysfunction. * Continue telemetry * Cardiology was consulted and starting on Eliquis 5 mg BID. * Pacemaker to be interrogated. * Cards signed off. (5) Hypokalemia: Code(s): E87.6 - Hypokalemia Status: Acute
--- NOTE | 2023-10-20 13:00 | PM.IMPN ---
Progress Note: A&P Assessment and Plan (1) RSV infection: Code(s): B33.8 - Other specified viral diseases Status: Acute Assessment and Plan: Head CT was negative for any acute process. RSV positive respiratory panel. Interval CXR from yesterday is showing a development of PNA. BC drawn and pending. nebs, supportive care Pt with interval worsening of overall respiratory status and is now in IMU requiring High flow oxygen. She has had to be titrated up to 60% FiO2 and 30L flow. Pulmonology consulted and gave recommendations for support and will continue to follow along with us. 10/20/23: Interval improvement in overall respiratory status. Now on oximizer at 30L. Continuing all other treatments with the addition of Mucomyst per Pulmonology recommendations. Order for titration as permits is given. (2) Acute hypoxic respiratory failure: Code(s): J96.01 - Acute respiratory failure with hypoxia Status: Acute Assessment and Plan: Continue supplemental oxygen with titration to keep sats up. Pt wears no oxygen at baseline. Continue to monitor respiratory status. Pt with Rapid response 2 nights ago. Worsening of Acute hypoxic respiratory failure. Continue IMU care with telemetry and close monitoring. High flow oxygen has been decreased to 30L and 60% FiO2. Check ABG at 1400 showed interval improvement. Titrate oxygen as able to. Continue Duonebs Q6 hrs Consult Pulmonology CTA PE protocol performed and negative for PE, but shows a PNA in all lobes additionally with some intraabdominal findings as well that are pertinent and will be explored. Pt's overall status is currently guarded. Continue Rocephin and Azithromycin for abx coverage and pt also received one dose of Vancomycin yesterday. MRSA swab is negative. Urine for strep Pneumo and Legionella are still pending. 10/20/23: See #1 (3) Abnormal chest xray: Code(s): R93.89 - Abnormal findings on diagnostic imaging of other specified body structures Status: Acute Assessment and Plan: Repeat CXR from yesterday shows an interval development of PNA. Rocephin and Azithromycin started. WBC increased reflecting the acute infection. Continue supportive care outlined in problems #2 and #3. Continue Supplemental oxygen and titrate/wean as able to. Sputum culture ordered. Blood culture is pending. Obtain urine antigens for Legionella and Strep Pneumo Repeat CXR this AM showed worsening of PNA and it is in all lobes. CTA results are negative for PE, but show a PNA in all lobes additionally with some intraabdominal findings as well that are pertinent and will be explored. Pt's overall status is currently guarded. 10/20/23: See #1 (4) Atrial fibrillation: Qualifiers: Atrial fibrillation type: unspecified Qualified Code(s): I48.91 - Unspecified atrial fibrillation Code(s): I48.91 - Unspecified atrial fibrillation Status: Acute Assessment and Plan: Pt with new onset last evening. Started on Diltiazem CD 120 mg which is providing adequate rate control. CHADs Vasc 2 score of 4 Serial trops were elevated and flat, suspecting strongly demand ischemia as EKG showed A-fib RVR ECHO performed showing Hyperdynamic LVSF with EF of >70% and a Grade 3 diastolic dysfunction. Continue telemetry Cardiology was consulted and starting on Eliquis 5 mg BID. Pacemaker to be interrogated. Cards signed off. (5) Hypokalemia: Code(s): E87.6 - Hypokalemia Status: Acute Assessment and Plan: Pt received 40 mEq last evening after she had Potassium of 2.8. Repeat today is 2.9. A second 40 mEq K+ rider is ordered at this time. Will continue to monitor labs and telemetry. 10/19/23: Pt's K+ is improved to 3.3. Additional 40 mEq po ordered. 10/20/23: Potassium today is 3.4. (6) Abdominal mass, left upper quadrant: Code(s): R19.02 - Left upper quadrant abdominal swelling,
--- NOTE | 2023-10-20 13:41 | WPDGICN ---
Assessment and Plan Assessment and plan (1) Abdominal mass, left upper quadrant: Code(s): R19.02 - Left upper quadrant abdominal swelling, mass and lump Status: Acute Assessment and Plan: incidental finding could be malignancy unfortunately site won't be reachable by interventional radiology, only option will be endoscopic ultrasound but will need referral to tertiary hospital. Given ongoing respiratory infection requiring oxygen she is not a candidate for EUS but will place a referral to complete as outpatient once she is healthier. This was discussed with daughter over the phone. We do not perform EUS at our institution will order CA 19-9 (2) Pneumonia: Code(s): J18.9 - Pneumonia, unspecified organism Status: Acute Assessment and Plan: pneumonia RSV, by pulmonary, on oxygen (3) RSV infection: Code(s): B33.8 - Other specified viral diseases Status: Acute (4) Acute hypoxic respiratory failure: Code(s): J96.01 - Acute respiratory failure with hypoxia Status: Acute (5) Cirrhosis: Code(s): K74.60 - Unspecified cirrhosis of liver Status: Acute Assessment and Plan: incidental finding hepatitis negative (6) Elevated liver enzymes: Code(s): R74.8 - Abnormal levels of other serum enzymes Status: Acute (7) Atrial fibrillation: Qualifiers: Atrial fibrillation type: unspecified Qualified Code(s): I48.91 - Unspecified atrial fibrillation Code(s): I48.91 - Unspecified atrial fibrillation Status: Acute Assessment and Plan: by cardiology GI Consult Note Consult date/time: 10/20/23 13:41 Reason for consult: mass LUQ HPI: Claudia Mac is a 88 year old female who was admitted to the hospital for weakness, confusion and fever who has been found to be positive for RSV 10/15/22.? She has?DM2, HTN, and hyperlipidemia, previous to hospitalization completed antibiotics for UTI. She had cough at home and was found to have a fever.?Also found to have new onset atrial fibrillation.?CT scan incidental finding?of increase in size of a couple masses the left upper quadrant situated between the tail the pancreas and the splenic hilum which are nonspecific but concerning for malignancy including lymphoma, metastatic disease or potentially pancreatic neoplasm arising from the tail. The mass is again not readily amenable to percutaneous biopsy but to abut the fundus of the stomach and could consider endoscopic ultrasound guided biopsy. Multifocal pneumonia involving all lobes of both lungs most prominent in the bilateral lower lobes. Mild mediastinal and bilateral hilar lymphadenopathy which could be reactive or due to metastatic disease or lymphoma and cirrhosis. Transaminases 40-100, normal bili. Hepatitis negative. She knows that is in the hospital but could not give me much information, I called daughter and said that normally she has some confusion, no previous history of cancer. She is on high flow oxygen now. Review of Systems Constitutional: Constitutional: Reports fatigue Eyes: Eyes: Denies blurry vision ENT: Reports nasal congestion Cardiovascular: Cardiovascular: Reports palpitations Respiratory: Respiratory: Reports cough Gastrointestinal: Gastrointestinal: Denies abdominal pain Genitourinary: Genitourinary: Denies urinary urgency Musculoskeletal: Musculoskeletal: Reports myalgias Integumentary/Breasts: Skin/Breast: Denies rash Neurologic: Reports confusion Psychiatric: Psychiatric: Reports confusion [facility] Past Medical History Medical History (Updated 10/20/23 @ 13:47 by Gurinder Kyle MD) Abdominal mass, left upper quadrant Abnormal chest xray Anxiety Cirrhosis Diabetes mellitus Elevated liver enzymes Hyperlipemia Hypertension Obesity Shingles Surgical History Surgical History H/O: hysterectomy History of appendect
[2023-10-20 16:32] LABS: Glucose Point of Care 134 mg/dl (65-105)
[2023-10-20] MEDS: ACETYLCYSTEINE 20% INHAL SOLN 800 MG/4 ML VIAL 200 MG INHALATION (21:05)
[2023-10-21] VITALS (24 sets, daily range): BP systolic 106–141; BP diastolic 46–82; PULSE 74–86; RESP 14–20; TEMP 36.3–37.2; O2SAT 91–96
[2023-10-21] MEDS: IPRATROPIUM BR 0.02% INH SOLN 0.5 MG/2.5 ML VIAL INHALATION ×4 (02:52→19:58)
[2023-10-21] MEDS: ALBUTEROL SULFATE NEB 2.5 MG/3 ML INH INHALATION ×4 (02:52→19:58)
[2023-10-21 04:03] LABS: Basophils Absolute Auto 0.1 K/mm3 (0.0-0.1); Basophils Percent Auto 1.1 % (0.2-1.2); Eosinophils Absolute Auto 0.1 K/mm3 (0-0.3); Eosinophils Percent Auto 1.3 % (0-4.4); Hematocrit 36.5 % (37.0-47.0); Hemoglobin 12.2 g/dL (12.0-15.0); Immature Granulocyte Absolute 0.89 K/mm3 (0.00-0.031); Immature Granulocyte Percent A 9.2 % (0-0.5); Lymphocytes Absolute Auto 1.96 K/mm3 (0.9-3.2); Lymphocytes Percent Auto 20.2 % (18.3-44.2); Mean Corpuscular HGB Conc 33.4 g/dl (32-36); Mean Corpuscular Hemoglobin 30.5 pg (26-34); Mean Corpuscular Volume 91.3 fl (80-100); Mean Platelet Volume 9.9 fl (7.4-10.4); Monocytes Absolute Auto 1.4 K/mm3 (0.1-0.6); Monocytes Percent Auto 14.1 % (2.6-8.5); Neutrophils Absolute Auto 5.2 K/mm3 (1.3-6.7); Neutrophils Percent Auto 54.1 % (45.5-73.1); Platelet Count Result 260 k/mm3 (150-375); Red Cell Distribution Width 14.3 % (11.5-14.5); White Blood Count 9.7 K/mm3 (4.5-10.0)
[2023-10-21 04:13] LABS: Alanine Aminotransferase 53 U/L (6-35); Albumin Level 3.2 g/dL (3.5-5.1); Alkaline Phosphatase 214 U/L (38-126); Anion Gap 5 mmol/L (8-16); Aspartate Amino Transferase 97 U/L (14-36); Bilirubin,Total 1.4 mg/dL (0.2-1.3); Blood Urea Nitrogen 21 mg/dL (7-17); Calcium 7.7 mg/dL (8.4-10.2); Carbon Dioxide 38 mmol/L (22-30); Chloride 95 mmol/L (98-107); Estimated CRCL calculation 34 ml/min; Estimated Glomerular Filt Rate 52; Glucose 141 mg/dL (65-110); Potassium 3.1 mmol/L (3.4-5.0); Sodium 138 mmol/L (137-145)
[2023-10-21] MEDS: ACETYLCYSTEINE 20% INHAL SOLN 800 MG/4 ML VIAL 200 MG INHALATION ×2 (07:47→19:58)
--- NOTE | 2023-10-21 08:08 | PCOTNOTE ---
Patient upgraded to IMU status following worsening of respiratory failure. Spoke with nursing who reports she is now on 30L high flow 02 and therapy is cleared to continue seeing the patient.
[2023-10-21 08:56] LABS: Glucose Point of Care 139 mg/dl (65-105)
[2023-10-21] MEDS: POTASSIUM CHLORIDE 20 MEQ ER TABLET 40 MEQ PO (08:56)
[2023-10-21] MEDS: LORazepam (*CRX) 0.5 MG TABLET PO (08:56)
[2023-10-21] MEDS: FUROSEMIDE INJ 40 MG/4 ML VIAL IV PUSH ×2 (08:56→17:50)
[2023-10-21] MEDS: GABAPENTIN 300 MG CAPSULE PO ×2 (08:56→17:51)
[2023-10-21] MEDS: APIXABAN 5 MG TABLET PO ×2 (08:56→20:35)
[2023-10-21] MEDS: LIDOCAINE 5% PATCH 2 PATCH TOPICAL (08:56)
[2023-10-21] MEDS: ATORVASTATIN 40 MG TABLET 80 MG PO (08:56)
[2023-10-21] MEDS: LOSARTAN POTASSIUM 50 MG TABLET PO (08:56)
[2023-10-21] MEDS: dilTIAZem HCL CD 120 MG CAP.24HR PO (08:56)
--- NOTE | 2023-10-21 09:32 | PM.PNPUL ---
Progress Note: A&P Assessment and Plan (1) Pneumonia: Code(s): J18.9 - Pneumonia, unspecified organism Status: Acute Assessment and Plan: This 88-year-old female patient was brought in with respiratory distress, confusion and hypoxemia, along with a history of diarrhea and vomiting. Bilateral pneumonia has been detected via chest imaging studies. The patient has tested positive for an RSV infection. It's plausible that this elderly patient, in addition to the current RSV infection, may be experiencing bacterial pneumonia. In fact, it's not uncommon for co-infections to manifest in such circumstances, typically associated with Streptococcus pneumoniae or Staphylococcus aureus. There has been no significant change in her respiratory status over the last 24 hours although she stated she is doing better. Physical exam still showing rhonchi bilaterally. WBC within normal range. Plan: Continue with current antibiotic regimen, nebulized mucolytic agent and short-acting bronchodilators. (2) Atrial fibrillation: Qualifiers: Atrial fibrillation type: unspecified Qualified Code(s): I48.91 - Unspecified atrial fibrillation Code(s): I48.91 - Unspecified atrial fibrillation Status: Acute (3) Diabetes mellitus: Qualifiers: Diabetes mellitus type: type 2 Diabetes mellitus terminal operator insulin use: without terminal operator use Diabetes mellitus complication status: with other specified complication Qualified Code(s): E11.69 - Type 2 diabetes mellitus with other specified complication Code(s): E11.9 - Type 2 diabetes mellitus without complications Status: Chronic (4) Acute hypoxic respiratory failure: Code(s): J96.01 - Acute respiratory failure with hypoxia Status: Acute (5) Abdominal mass, left upper quadrant: Code(s): R19.02 - Left upper quadrant abdominal swelling, mass and lump Status: Acute Subjective Date/time seen: 10/21/23 09:32 Interval history: Patient stated she is doing better. Has no new respiratory symptoms. FiO2 is also lower today. Remains on high-flow nasal cannula however Review of Systems Review of Systems: All systems reviewed & are unremarkable except as noted in HPI and below (HPI and below) Objective Data Vital Signs Vital Signs: Vital Signs - 24 hr 10/20/23 09:58 10/20/23 12:30 10/20/23 13:49 Temperature 36.2 C L Pulse Rate 84 81 Respiratory Rate 20 Blood Pressure 131/78 Pulse Oximetry 97 98 Oxygen Delivery Oxymizer High Flow Therapy with Na Oxygen Flow Rate 30 30 Fraction of Inspired Oxygen 60 10/20/23 13:52 10/20/23 14:06 10/20/23 15:40 Temperature 36.4 C Pulse Rate 81 88 82 Respiratory Rate 20 20 20 Blood Pressure 130/76 Pulse Oximetry 98 Oxygen Delivery Oxygen Flow Rate Fraction of Inspired Oxygen 10/20/23 10:00 10/20/23 12:00 10/20/23 14:00 Temperature Pulse Rate 80 84 80 Respiratory Rate Blood Pressure Pulse Oximetry Oxygen Delivery Oxygen Flow Rate Fraction of Inspired Oxygen 10/20/23 16:00 10/20/23 18:00 10/20/23 12:00 Temperature Pulse Rate 78 82 Respiratory Rate Blood Pressure Pulse Oximetry 97 Oxygen Delivery High Flow Therapy with Na Oxygen Flow Rate 30 Fraction of Inspired Oxygen 60 10/20/23 16:00 10/20/23 19:48 10/20/23 21:05 Temperature 36.8 C Pulse Rate 84 79 Respiratory Rate 17 20 Blood Pressure 117/50 L Pulse Oximetry 97 90 Oxygen Delivery High Flow Therapy with Na Oxygen Flow Rate 30 Fraction of Inspired Oxygen 60 10/20/23 21:06 10/20/23 21:25 10/20/23 20:00 Temperature Pulse Rate 79 86 81 Respiratory Rate 20 Blood Pressure Pulse Oximetry 91 Oxygen Delivery High Flow Therapy with Na Oxygen Flow Rate 30 Fraction of Inspired Oxygen 50 10/20/23 20:00 10/20/23 22:00 10/21/23 00:07 Temperature 36.8 C Pulse Rate 82 74 Respiratory Rate 14 Blood Pres
[2023-10-21 10:11] LABS: Vancomycin Trough 10.6 ug/mL (10.0-20.0)
--- NOTE | 2023-10-21 11:35 | P.PNIM_ITS ---
Progress Note: A&P Assessment and Plan (1) RSV infection: Code(s): B33.8 - Other specified viral diseases Status: Acute Assessment and Plan: * Head CT was negative for any acute process. * RSV positive respiratory panel. * Interval CXR from yesterday is showing a development of PNA. * BC drawn and pending. * nebs, supportive care * Pt with interval worsening of overall respiratory status and is now in IMU requiring High flow oxygen. She has had to be titrated up to 60% FiO2 and 30L flow. * Pulmonology consulted and gave recommendations for support and will continue to follow along with us. * 10/20/23: Interval improvement in overall respiratory status. Now on oximizer at 30L. Continuing all other treatments with the addition of Mucomyst per Pulmonology recommendations. Order for titration as permits is given. * 10/21/23: Continue to attempt to titrate High flow oxygen. Mucinex added to medication regimen as pt was having difficulty expectorating. Continue to monitor overall status. Thank you to Dr. Guardado for his co-management with me on this patient. (2) Acute hypoxic respiratory failure: Code(s): J96.01 - Acute respiratory failure with hypoxia Status: Acute Assessment and Plan: * Continue supplemental oxygen with titration to keep sats up. * Pt wears no oxygen at baseline. * Continue to monitor respiratory status. * Pt with Rapid response 2 nights ago. Worsening of Acute hypoxic respiratory failure. * Continue IMU care with telemetry and close monitoring. * High flow oxygen has been decreased to 30L and 60% FiO2. * Check ABG at 1400 showed interval improvement. * Titrate oxygen as able to. * Continue Duonebs Q6 hrs * Consult Pulmonology * CTA PE protocol performed and negative for PE, but shows a PNA in all lobes additionally with some intraabdominal findings as well that are pertinent and will be explored. * Pt's overall status is currently guarded. * Continue Rocephin and Azithromycin for abx coverage and pt also received one dose of Vancomycin yesterday. * MRSA swab is negative. * Urine for strep Pneumo and Legionella are still pending. * 10/20/23: See #1 (3) Abnormal chest xray: Code(s): R93.89 - Abnormal findings on diagnostic imaging of other specified body structures Status: Acute Assessment and Plan: * Repeat CXR from yesterday shows an interval development of PNA. * Rocephin and Azithromycin started. * WBC increased reflecting the acute infection. * Continue supportive care outlined in problems #2 and #3. * Continue Supplemental oxygen and titrate/wean as able to. * Sputum culture ordered. * Blood culture is pending. * Obtain urine antigens for Legionella and Strep Pneumo * Repeat CXR this AM showed worsening of PNA and it is in all lobes. * CTA results are negative for PE, but show a PNA in all lobes additionally with some intraabdominal findings as well that are pertinent and will be explored. * Pt's overall status is currently guarded. * 10/20/23: See #1 (4) Atrial fibrillation: Qualifiers: Atrial fibrillation type: unspecified Qualified Code(s): I48.91 - Unspecified atrial fibrillation Code(s): I48.91 - Unspecified atrial fibrillation Status: Acute Assessment and Plan: * Pt with new onset last evening. * Started on Diltiazem CD 120 mg which is providing adequate rate control. * CHADs Vasc 2 score of 4 * Serial trops were elevated and flat, suspecting strongly demand ischemia as EKG showed A-fib RVR * ECHO performed showing Hyperdynamic LVSF with EF of >70% and a Grade 3 diastolic dysf
--- NOTE | 2023-10-21 11:35 | PM.IMPN ---
Progress Note: A&P Assessment and Plan (1) RSV infection: Code(s): B33.8 - Other specified viral diseases Status: Acute Assessment and Plan: Head CT was negative for any acute process. RSV positive respiratory panel. Interval CXR from yesterday is showing a development of PNA. BC drawn and pending. nebs, supportive care Pt with interval worsening of overall respiratory status and is now in IMU requiring High flow oxygen. She has had to be titrated up to 60% FiO2 and 30L flow. Pulmonology consulted and gave recommendations for support and will continue to follow along with us. 10/20/23: Interval improvement in overall respiratory status. Now on oximizer at 30L. Continuing all other treatments with the addition of Mucomyst per Pulmonology recommendations. Order for titration as permits is given. 10/21/23: Continue to attempt to titrate High flow oxygen. Mucinex added to medication regimen as pt was having difficulty expectorating. Continue to monitor overall status. Thank you to Dr. Guardado for his co-management with me on this patient. (2) Acute hypoxic respiratory failure: Code(s): J96.01 - Acute respiratory failure with hypoxia Status: Acute Assessment and Plan: Continue supplemental oxygen with titration to keep sats up. Pt wears no oxygen at baseline. Continue to monitor respiratory status. Pt with Rapid response 2 nights ago. Worsening of Acute hypoxic respiratory failure. Continue IMU care with telemetry and close monitoring. High flow oxygen has been decreased to 30L and 60% FiO2. Check ABG at 1400 showed interval improvement. Titrate oxygen as able to. Continue Duonebs Q6 hrs Consult Pulmonology CTA PE protocol performed and negative for PE, but shows a PNA in all lobes additionally with some intraabdominal findings as well that are pertinent and will be explored. Pt's overall status is currently guarded. Continue Rocephin and Azithromycin for abx coverage and pt also received one dose of Vancomycin yesterday. MRSA swab is negative. Urine for strep Pneumo and Legionella are still pending. 10/20/23: See #1 (3) Abnormal chest xray: Code(s): R93.89 - Abnormal findings on diagnostic imaging of other specified body structures Status: Acute Assessment and Plan: Repeat CXR from yesterday shows an interval development of PNA. Rocephin and Azithromycin started. WBC increased reflecting the acute infection. Continue supportive care outlined in problems #2 and #3. Continue Supplemental oxygen and titrate/wean as able to. Sputum culture ordered. Blood culture is pending. Obtain urine antigens for Legionella and Strep Pneumo Repeat CXR this AM showed worsening of PNA and it is in all lobes. CTA results are negative for PE, but show a PNA in all lobes additionally with some intraabdominal findings as well that are pertinent and will be explored. Pt's overall status is currently guarded. 10/20/23: See #1 (4) Atrial fibrillation: Qualifiers: Atrial fibrillation type: unspecified Qualified Code(s): I48.91 - Unspecified atrial fibrillation Code(s): I48.91 - Unspecified atrial fibrillation Status: Acute Assessment and Plan: Pt with new onset last evening. Started on Diltiazem CD 120 mg which is providing adequate rate control. CHADs Vasc 2 score of 4 Serial trops were elevated and flat, suspecting strongly demand ischemia as EKG showed A-fib RVR ECHO performed showing Hyperdynamic LVSF with EF of >70% and a Grade 3 diastolic dysfunction. Continue telemetry Cardiology was consulted and starting on Eliquis 5 mg BID. Pacemaker to be interrogated. Cards signed off. 10/21/23: Continue Eliquis therapy. (5) Hypokalemia: Code(s): E87.6 - Hypokalemia Status: Acute Assessment and Plan: Pt received 40 mEq last evening after she had Potassium of 2.8. Repeat today is 2.9. A second 40 mEq K+ rider
[2023-10-21 14:25] LABS: Glucose Point of Care 137 mg/dl (65-105)
[2023-10-21 16:33] LABS: Glucose Point of Care 185 mg/dl (65-105)
[2023-10-21 20:27] LABS: Glucose Point of Care 162 mg/dl (65-105)
[2023-10-21] MEDS: guaiFENesin 12 HR 600 MG TABCR PO (20:35)
[2023-10-21 23:19] LABS: Pneumococcal Antigen Urine Detected (Not Detected)
[2023-10-22] VITALS (23 sets, daily range): BP systolic 111–129; BP diastolic 47–81; PULSE 72–112; RESP 18–22; TEMP 36.4–36.9; O2SAT 90–96; BMI 31.3
[2023-10-22] MEDS: ALBUTEROL SULFATE NEB 2.5 MG/3 ML INH INHALATION ×2 (02:43→09:14)
[2023-10-22] MEDS: IPRATROPIUM BR 0.02% INH SOLN 0.5 MG/2.5 ML VIAL INHALATION ×2 (02:43→09:14)
[2023-10-22 08:17] LABS: Glucose Point of Care 135 mg/dl (65-105)
[2023-10-22 08:18] LABS: Basophils Absolute Auto 0.1 K/mm3 (0.0-0.1); Basophils Percent Auto 1.2 % (0.2-1.2); Eosinophils Absolute Auto 0.2 K/mm3 (0-0.3); Eosinophils Percent Auto 1.9 % (0-4.4); Hematocrit 37.9 % (37.0-47.0); Hemoglobin 12.1 g/dL (12.0-15.0); Immature Granulocyte Absolute 0.97 K/mm3 (0.00-0.031); Immature Granulocyte Percent A 9.9 % (0-0.5); Lymphocytes Absolute Auto 2.17 K/mm3 (0.9-3.2); Lymphocytes Percent Auto 22.1 % (18.3-44.2); Mean Corpuscular HGB Conc 31.9 g/dl (32-36); Mean Platelet Volume 10.1 fl (7.4-10.4); Monocytes Absolute Auto 1.2 K/mm3 (0.1-0.6); Neutrophils Absolute Auto 5.2 K/mm3 (1.3-6.7); Neutrophils Percent Auto 52.9 % (45.5-73.1); Platelet Count Result 321 k/mm3 (150-375); Red Blood Count 4.03 M/mm3 (4.2-5.4); Red Cell Distribution Width 14.2 % (11.5-14.5); White Blood Count 9.8 K/mm3 (4.5-10.0)
[2023-10-22] MEDS: APIXABAN 5 MG TABLET PO ×2 (08:27→20:58)
[2023-10-22] MEDS: guaiFENesin 12 HR 600 MG TABCR PO ×2 (08:27→20:58)
[2023-10-22] MEDS: LOSARTAN POTASSIUM 50 MG TABLET PO (08:27)
[2023-10-22] MEDS: GABAPENTIN 300 MG CAPSULE PO (08:27)
[2023-10-22] MEDS: dilTIAZem HCL CD 120 MG CAP.24HR PO (08:27)
[2023-10-22] MEDS: ATORVASTATIN 40 MG TABLET 80 MG PO (08:27)
[2023-10-22] MEDS: LIDOCAINE 5% PATCH 2 PATCH TOPICAL (08:28)
[2023-10-22 08:30] LABS: Alanine Aminotransferase 60 U/L (6-35); Albumin Level 3.4 g/dL (3.5-5.1); Alkaline Phosphatase 230 U/L (38-126); Anion Gap 6 mmol/L (8-16); Aspartate Amino Transferase 86 U/L (14-36); Bilirubin,Total 1.2 mg/dL (0.2-1.3); Blood Urea Nitrogen 25 mg/dL (7-17); Carbon Dioxide 37 mmol/L (22-30); Chloride 94 mmol/L (98-107); Estimated CRCL calculation 31 ml/min; Estimated Glomerular Filt Rate 47; Glucose 140 mg/dL (65-110); Magnesium 2.2 mg/dL (1.6-2.3); Potassium 3.3 mmol/L (3.4-5.0); Sodium 137 mmol/L (137-145)
[2023-10-22] MEDS: ACETYLCYSTEINE 20% INHAL SOLN 800 MG/4 ML VIAL 200 MG INHALATION ×2 (09:14→19:39)
--- NOTE | 2023-10-22 09:30 | P.PNIM_ITS ---
Progress Note: A&P Assessment and Plan (1) RSV infection: Code(s): B33.8 - Other specified viral diseases Status: Acute Assessment and Plan: * Head CT was negative for any acute process. * RSV positive respiratory panel. * Interval CXR from yesterday is showing a development of PNA. * BC drawn and pending. * nebs, supportive care * Pt with interval worsening of overall respiratory status and is now in IMU requiring High flow oxygen. She has had to be titrated up to 60% FiO2 and 30L flow. * Pulmonology consulted and gave recommendations for support and will continue to follow along with us. * 10/20/23: Interval improvement in overall respiratory status. Now on oximizer at 30L. Continuing all other treatments with the addition of Mucomyst per Pulmonology recommendations. Order for titration as permits is given. * 10/21/23: Continue to attempt to titrate High flow oxygen. Mucinex added to medication regimen as pt was having difficulty expectorating. Continue to monitor overall status. Thank you to Dr. Guardado for his co-management with me on this patient. * 10/22/23: Interval improvement in overall oxygenation overnight with weaning oxygen to 3L NC. Pt with continued Rhonchi throughout all lobes, but overall improvement in respiratory status. She is not meeting sepsis criteria and is more stable. (2) Acute hypoxic respiratory failure: Code(s): J96.01 - Acute respiratory failure with hypoxia Status: Acute Assessment and Plan: * Continue supplemental oxygen with titration to keep sats up. * Pt wears no oxygen at baseline. * Continue to monitor respiratory status. * Pt with Rapid response 2 nights ago. Worsening of Acute hypoxic respiratory failure. * Continue IMU care with telemetry and close monitoring. * High flow oxygen has been decreased to 30L and 60% FiO2. * Check ABG at 1400 showed interval improvement. * Titrate oxygen as able to. * Continue Duonebs Q6 hrs * Consult Pulmonology * CTA PE protocol performed and negative for PE, but shows a PNA in all lobes additionally with some intraabdominal findings as well that are pertinent and will be explored. * Pt's overall status is currently guarded. * Continue Rocephin and Azithromycin for abx coverage and pt also received one dose of Vancomycin yesterday. * MRSA swab is negative. * Urine for strep Pneumo and Legionella are still pending. * 10/20/23: See #1 * 10/22/23: Urine antigen for Strep Pneumococcal infection is positive. This is day #7 of Rocephin therapy for this pt. Will consider de-escalating to an oral abx today of Augmentin. (3) Abnormal chest xray: Code(s): R93.89 - Abnormal findings on diagnostic imaging of other specified body structures Status: Acute Assessment and Plan: * Repeat CXR from yesterday shows an interval development of PNA. * Rocephin and Azithromycin started. * WBC increased reflecting the acute infection. * Continue supportive care outlined in problems #2 and #3. * Continue Supplemental oxygen and titrate/wean as able to. * Sputum culture ordered. * Blood culture is pending. * Obtain urine antigens for Legionella and Strep Pneumo * Repeat CXR this AM showed worsening of PNA and it is in all lobes. * CTA results are negative for PE, but show a PNA in all lobes additionally with some intraabdominal findings as well that are pertinent and will be explored. * Pt's overall status is currently guarded. * 10/20/23: See #1 * 10/22/23: See #1 and #2 (4) Atrial fibrillation: Qualifiers: Atrial fibrillation type: unspecified Qualified Code(s): I48.91 - Unspecified atrial
--- NOTE | 2023-10-22 09:30 | PM.IMPN ---
Progress Note: A&P Assessment and Plan (1) RSV infection: Code(s): B33.8 - Other specified viral diseases Status: Acute Assessment and Plan: Head CT was negative for any acute process. RSV positive respiratory panel. Interval CXR from yesterday is showing a development of PNA. BC drawn and pending. nebs, supportive care Pt with interval worsening of overall respiratory status and is now in IMU requiring High flow oxygen. She has had to be titrated up to 60% FiO2 and 30L flow. Pulmonology consulted and gave recommendations for support and will continue to follow along with us. 10/20/23: Interval improvement in overall respiratory status. Now on oximizer at 30L. Continuing all other treatments with the addition of Mucomyst per Pulmonology recommendations. Order for titration as permits is given. 10/21/23: Continue to attempt to titrate High flow oxygen. Mucinex added to medication regimen as pt was having difficulty expectorating. Continue to monitor overall status. Thank you to Dr. Guardado for his co-management with me on this patient. 10/22/23: Interval improvement in overall oxygenation overnight with weaning oxygen to 3L NC. Pt with continued Rhonchi throughout all lobes, but overall improvement in respiratory status. She is not meeting sepsis criteria and is more stable. (2) Acute hypoxic respiratory failure: Code(s): J96.01 - Acute respiratory failure with hypoxia Status: Acute Assessment and Plan: Continue supplemental oxygen with titration to keep sats up. Pt wears no oxygen at baseline. Continue to monitor respiratory status. Pt with Rapid response 2 nights ago. Worsening of Acute hypoxic respiratory failure. Continue IMU care with telemetry and close monitoring. High flow oxygen has been decreased to 30L and 60% FiO2. Check ABG at 1400 showed interval improvement. Titrate oxygen as able to. Continue Duonebs Q6 hrs Consult Pulmonology CTA PE protocol performed and negative for PE, but shows a PNA in all lobes additionally with some intraabdominal findings as well that are pertinent and will be explored. Pt's overall status is currently guarded. Continue Rocephin and Azithromycin for abx coverage and pt also received one dose of Vancomycin yesterday. MRSA swab is negative. Urine for strep Pneumo and Legionella are still pending. 10/20/23: See #1 10/22/23: Urine antigen for Strep Pneumococcal infection is positive. This is day #7 of Rocephin therapy for this pt. Will consider de-escalating to an oral abx today of Augmentin. (3) Abnormal chest xray: Code(s): R93.89 - Abnormal findings on diagnostic imaging of other specified body structures Status: Acute Assessment and Plan: Repeat CXR from yesterday shows an interval development of PNA. Rocephin and Azithromycin started. WBC increased reflecting the acute infection. Continue supportive care outlined in problems #2 and #3. Continue Supplemental oxygen and titrate/wean as able to. Sputum culture ordered. Blood culture is pending. Obtain urine antigens for Legionella and Strep Pneumo Repeat CXR this AM showed worsening of PNA and it is in all lobes. CTA results are negative for PE, but show a PNA in all lobes additionally with some intraabdominal findings as well that are pertinent and will be explored. Pt's overall status is currently guarded. 10/20/23: See #1 10/22/23: See #1 and #2 (4) Atrial fibrillation: Qualifiers: Atrial fibrillation type: unspecified Qualified Code(s): I48.91 - Unspecified atrial fibrillation Code(s): I48.91 - Unspecified atrial fibrillation Status: Acute Assessment and Plan: Pt with new onset last evening. Started on Diltiazem CD 120 mg which is providing adequate rate control. CHADs Vasc 2 score of 4 Serial trops were elevated and flat, suspecting strongly demand ischemia as EKG showed A-fib RVR ECHO performed showing Hyperdynamic LVS
--- NOTE | 2023-10-22 09:39 | PM.PNPUL ---
Progress Note: A&P Assessment and Plan (1) Pneumonia: Code(s): J18.9 - Pneumonia, unspecified organism Status: Acute Assessment and Plan: An 88-year-old female patient was admitted with symptoms of respiratory distress, confusion, and hypoxemia, accompanied by a history of diarrhea and vomiting. Bilateral pneumonia was identified through chest imaging studies. The patient has tested positive for a Respiratory Syncytial Virus (RSV) infection. A positive urine antigen for Streptococcus pneumoniae suggests a co-infection with Streptococcal pneumonia. The patient's condition is gradually improving, and she is currently only on supplemental oxygen via a nasal cannula, marking a significant improvement from her initial high oxygen requirements. On physical examination, she continues to exhibit some chest congestion, but her ability to clear bronchial secretions has improved. The management plan includes the continuation of the current antibiotic regimen, along with short-acting bronchodilators and nebulized mucolytic agents. The patient will be encouraged to move from the bed to the chair. Given the rising creatinine levels, the administration of Lasix will be held. (2) Atrial fibrillation: Qualifiers: Atrial fibrillation type: unspecified Qualified Code(s): I48.91 - Unspecified atrial fibrillation Code(s): I48.91 - Unspecified atrial fibrillation Status: Acute (3) Diabetes mellitus: Qualifiers: Diabetes mellitus type: type 2 Diabetes mellitus station worker insulin use: without snf use Diabetes mellitus complication status: with other specified complication Qualified Code(s): E11.69 - Type 2 diabetes mellitus with other specified complication Code(s): E11.9 - Type 2 diabetes mellitus without complications Status: Chronic (4) Acute hypoxic respiratory failure: Code(s): J96.01 - Acute respiratory failure with hypoxia Status: Acute (5) Abdominal mass, left upper quadrant: Code(s): R19.02 - Left upper quadrant abdominal swelling, mass and lump Status: Acute Subjective Date/time seen: 10/22/23 09:39 Interval history: Patient reports no new respiratory symptoms. Appears to be able to clear bronchial secretions better now than before. Currently on supplemental oxygen 2 liters/minute which is significant improvement from high-flow nasal cannula she had been on for a number of days. She still has chest congestion. Urine antigens for strep pneumonia positive Review of Systems Review of Systems: All systems reviewed & are unremarkable except as noted in HPI and below (HPI and below) Exam Narrative: GENERAL APPEARANCE: Well developed, well nourished, alert and cooperative, who appears to be in [id number] respiratory distress while on high-flow nasal cannula at 65% FiO2. SKIN: Inspection of the skin reveals no rashes, ulcerations or petechiae. HEENT: Sclerae anicteric and conjunctivae pink and moist. Extraocular movements were intact and pupils were equal, round, dry oral mucosa NECK: Supple. There was no thyroid enlargement, and no tenderness, or masses were felt. CHEST: Normal AP diameter and normal contour without any kyphoscoliosis. LUNGS: Crackles at bases posteriorly no wheezing CARDIAC: There was a regular rate and rhythm without any murmurs, gallops, rubs. ABDOMEN: Soft and nontender with normal bowel sounds. There was no organomegaly. LYMPH NODES: No lymphadenopathy was appreciated in the neck. EXTREMITIES: No cyanosis, clubbing or edema. NEUROLOGIC: Alert and oriented x 3. Normal affect. Objective Data Vital Signs Vital Signs: Vital Signs - 24 hr 10/21/23 10:00 10/21/23 12:00 10/21/23 13:51 Temperature 36.9 C Pulse Rate 86 74 86 Respiratory Rate 20 Blood Pressure 141/82 H Pulse Oximetry 93 94 Oxygen Delivery High Flow Therapy with Na Oxygen Flow Rate 40 Fraction of Inspired Oxygen 50 10/21/23 13:51
[2023-10-22 12:46] LABS: Glucose Point of Care 143 mg/dl (65-105)
--- NOTE | 2023-10-22 14:36 | PCPTNOTE ---
The patient treatment was not able to be completed on this date due to Respiratory Therapy seeing patient. Will plan to continue treatment per plan of care.
[2023-10-22] MEDS: MECLIZINE HCL 12.5 MG TABLET PO (15:32)
[2023-10-22 16:45] LABS: Glucose Point of Care 165 mg/dl (65-105)
[2023-10-22] MEDS: FUROSEMIDE INJ 40 MG/4 ML VIAL IV PUSH (17:30)
[2023-10-22] MEDS: IPRATROPIUM 0.5 MG/ALBUTEROL SULFATE 2.5 MG AMPUL.NEB 3 ML INHALATION (19:39)
[2023-10-22 20:30] LABS: Glucose Point of Care 182 mg/dl (65-105)
[2023-10-23] VITALS (20 sets, daily range): BP systolic 103–139; BP diastolic 53–86; PULSE 70–85; RESP 16–20; TEMP 36.4–36.9; O2SAT 90–96
[2023-10-23] MEDS: IPRATROPIUM 0.5 MG/ALBUTEROL SULFATE 2.5 MG AMPUL.NEB 3 ML INHALATION ×4 (01:28→20:14)
[2023-10-23 01:53] LABS: Legionella pneumophila Ag Ur Not Detected (Not Detected)
[2023-10-23 05:23] LABS: Basophils Absolute Auto 0.1 K/mm3 (0.0-0.1); Basophils Percent Auto 1.3 % (0.2-1.2); Eosinophils Absolute Auto 0.3 K/mm3 (0-0.3); Eosinophils Percent Auto 2.8 % (0-4.4); Hematocrit 35.5 % (37.0-47.0); Hemoglobin 11.8 g/dL (12.0-15.0); Immature Granulocyte Percent A 9.4 % (0-0.5); Lymphocytes Absolute Auto 2.11 K/mm3 (0.9-3.2); Mean Corpuscular HGB Conc 33.2 g/dl (32-36); Mean Corpuscular Hemoglobin 30.4 pg (26-34); Mean Corpuscular Volume 91.5 fl (80-100); Mean Platelet Volume 9.7 fl (7.4-10.4); Monocytes Percent Auto 10.3 % (2.6-8.5); Neutrophils Absolute Auto 5.2 K/mm3 (1.3-6.7); Neutrophils Percent Auto 54.2 % (45.5-73.1); Platelet Count Result 373 k/mm3 (150-375); Red Blood Count 3.88 M/mm3 (4.2-5.4); White Blood Count 9.6 K/mm3 (4.5-10.0)
[2023-10-23 05:35] LABS: Alanine Aminotransferase 54 U/L (6-35); Albumin Level 3.4 g/dL (3.5-5.1); Alkaline Phosphatase 237 U/L (38-126); Anion Gap 6 mmol/L (8-16); Aspartate Amino Transferase 77 U/L (14-36); Blood Urea Nitrogen 27 mg/dL (7-17); Calcium 8.5 mg/dL (8.4-10.2); Carbon Dioxide 37 mmol/L (22-30); Chloride 93 mmol/L (98-107); Estimated CRCL calculation 30 ml/min; Estimated Glomerular Filt Rate 47; Glucose 157 mg/dL (65-110); Magnesium 2.3 mg/dL (1.6-2.3); Potassium 3.4 mmol/L (3.4-5.0); Sodium 136 mmol/L (137-145)
--- NOTE | 2023-10-23 05:40 | PC.NURSE ---
Report given to Dara VALENCIA, All belongings gathered, patient to room 342
[2023-10-23] MEDS: ACETYLCYSTEINE 20% INHAL SOLN 800 MG/4 ML VIAL 200 MG INHALATION ×2 (07:04→20:14)
[2023-10-23 08:13] LABS: Glucose Point of Care 136 mg/dl (65-105)
[2023-10-23] MEDS: LIDOCAINE 5% PATCH 2 PATCH TOPICAL (09:26)
[2023-10-23] MEDS: GABAPENTIN 300 MG CAPSULE PO ×2 (09:26→13:13)
[2023-10-23] MEDS: guaiFENesin 12 HR 600 MG TABCR PO ×2 (09:26→20:40)
[2023-10-23] MEDS: LOSARTAN POTASSIUM 50 MG TABLET PO (09:26)
[2023-10-23] MEDS: ATORVASTATIN 40 MG TABLET 80 MG PO (09:27)
[2023-10-23] MEDS: APIXABAN 5 MG TABLET PO ×2 (09:27→20:40)
[2023-10-23] MEDS: FUROSEMIDE INJ 40 MG/4 ML VIAL IV PUSH (09:27)
[2023-10-23] MEDS: MECLIZINE HCL 12.5 MG TABLET PO (09:52)
[2023-10-23] MEDS: dilTIAZem HCL CD 120 MG CAP.24HR PO (09:52)
--- NOTE | 2023-10-23 10:50 | P.PNIM_ITS ---
Progress Note: A&P Assessment and Plan (1) RSV infection: Code(s): B33.8 - Other specified viral diseases Status: Acute Assessment and Plan: * Head CT was negative for any acute process. * RSV positive respiratory panel. * Interval CXR from yesterday is showing a development of PNA. * BC drawn and pending. * nebs, supportive care * Pt with interval worsening of overall respiratory status and is now in IMU requiring High flow oxygen. She has had to be titrated up to 60% FiO2 and 30L flow. * Pulmonology consulted and gave recommendations for support and will continue to follow along with us. * 10/20/23: Interval improvement in overall respiratory status. Now on oximizer at 30L. Continuing all other treatments with the addition of Mucomyst per Pulmonology recommendations. Order for titration as permits is given. * 10/21/23: Continue to attempt to titrate High flow oxygen. Mucinex added to medication regimen as pt was having difficulty expectorating. Continue to monitor overall status. Thank you to Dr. Guardado for his co-management with me on this patient. * 10/22/23: Interval improvement in overall oxygenation overnight with weaning oxygen to 3L NC. Pt with continued Rhonchi throughout all lobes, but overall improvement in respiratory status. She is not meeting sepsis criteria and is more stable. * 10/23/23: Overall interval improvement in condition. She is stable and currently awaiting placement for discharge at [facility] and rehab. (2) Acute hypoxic respiratory failure: Code(s): J96.01 - Acute respiratory failure with hypoxia Status: Acute Assessment and Plan: * Continue supplemental oxygen with titration to keep sats up. * Pt wears no oxygen at baseline. * Continue to monitor respiratory status. * Pt with Rapid response 2 nights ago. Worsening of Acute hypoxic respiratory failure. * Continue IMU care with telemetry and close monitoring. * High flow oxygen has been decreased to 30L and 60% FiO2. * Check ABG at 1400 showed interval improvement. * Titrate oxygen as able to. * Continue Duonebs Q6 hrs * Consult Pulmonology * CTA PE protocol performed and negative for PE, but shows a PNA in all lobes additionally with some intraabdominal findings as well that are pertinent and will be explored. * Pt's overall status is currently guarded. * Continue Rocephin and Azithromycin for abx coverage and pt also received one dose of Vancomycin yesterday. * MRSA swab is negative. * Urine for strep Pneumo and Legionella are still pending. * 10/20/23: See #1 * 10/22/23: Urine antigen for Strep Pneumococcal infection is positive. This is day #7 of Rocephin therapy for this pt. Will consider de-escalating to an oral abx today of Augmentin. * 10/23/23: De-escalating abx today from IV Rocephin to oral Augmentin for an additional 5 days for treatment of her strep Pneumo PNA. (3) Abnormal chest xray: Code(s): R93.89 - Abnormal findings on diagnostic imaging of other specified body structures Status: Acute Assessment and Plan: * Repeat CXR from yesterday shows an interval development of PNA. * Rocephin and Azithromycin started. * WBC increased reflecting the acute infection. * Continue supportive care outlined in problems #2 and #3. * Continue Supplemental oxygen and titrate/wean as able to. * Sputum culture ordered. * Blood culture is pending. * Obtain urine antigens for Legionella and Strep Pneumo * Repeat CXR this AM showed worsening of PNA and it is in all lobes. * CTA results are negative for PE, but show a PNA in all lobes additionally with some intraabdominal findings a
--- NOTE | 2023-10-23 10:50 | PM.IMPN ---
Progress Note: A&P Assessment and Plan (1) RSV infection: Code(s): B33.8 - Other specified viral diseases Status: Acute Assessment and Plan: Head CT was negative for any acute process. RSV positive respiratory panel. Interval CXR from yesterday is showing a development of PNA. BC drawn and pending. nebs, supportive care Pt with interval worsening of overall respiratory status and is now in IMU requiring High flow oxygen. She has had to be titrated up to 60% FiO2 and 30L flow. Pulmonology consulted and gave recommendations for support and will continue to follow along with us. 10/20/23: Interval improvement in overall respiratory status. Now on oximizer at 30L. Continuing all other treatments with the addition of Mucomyst per Pulmonology recommendations. Order for titration as permits is given. 10/21/23: Continue to attempt to titrate High flow oxygen. Mucinex added to medication regimen as pt was having difficulty expectorating. Continue to monitor overall status. Thank you to Dr. Guardado for his co-management with me on this patient. 10/22/23: Interval improvement in overall oxygenation overnight with weaning oxygen to 3L NC. Pt with continued Rhonchi throughout all lobes, but overall improvement in respiratory status. She is not meeting sepsis criteria and is more stable. 10/23/23: Overall interval improvement in condition. She is stable and currently awaiting placement for discharge at [facility] rehab. (2) Acute hypoxic respiratory failure: Code(s): J96.01 - Acute respiratory failure with hypoxia Status: Acute Assessment and Plan: Continue supplemental oxygen with titration to keep sats up. Pt wears no oxygen at baseline. Continue to monitor respiratory status. Pt with Rapid response 2 nights ago. Worsening of Acute hypoxic respiratory failure. Continue IMU care with telemetry and close monitoring. High flow oxygen has been decreased to 30L and 60% FiO2. Check ABG at 1400 showed interval improvement. Titrate oxygen as able to. Continue Duonebs Q6 hrs Consult Pulmonology CTA PE protocol performed and negative for PE, but shows a PNA in all lobes additionally with some intraabdominal findings as well that are pertinent and will be explored. Pt's overall status is currently guarded. Continue Rocephin and Azithromycin for abx coverage and pt also received one dose of Vancomycin yesterday. MRSA swab is negative. Urine for strep Pneumo and Legionella are still pending. 10/20/23: See #1 10/22/23: Urine antigen for Strep Pneumococcal infection is positive. This is day #7 of Rocephin therapy for this pt. Will consider de-escalating to an oral abx today of Augmentin. 10/23/23: De-escalating abx today from IV Rocephin to oral Augmentin for an additional 5 days for treatment of her strep Pneumo PNA. (3) Abnormal chest xray: Code(s): R93.89 - Abnormal findings on diagnostic imaging of other specified body structures Status: Acute Assessment and Plan: Repeat CXR from yesterday shows an interval development of PNA. Rocephin and Azithromycin started. WBC increased reflecting the acute infection. Continue supportive care outlined in problems #2 and #3. Continue Supplemental oxygen and titrate/wean as able to. Sputum culture ordered. Blood culture is pending. Obtain urine antigens for Legionella and Strep Pneumo Repeat CXR this AM showed worsening of PNA and it is in all lobes. CTA results are negative for PE, but show a PNA in all lobes additionally with some intraabdominal findings as well that are pertinent and will be explored. Pt's overall status is currently guarded. 10/20/23: See #1 10/22/23: See #1 and #2 10/23/23: De-escalating IV abx today as outlined in #2. (4) Atrial fibrillation: Qualifiers: Atrial fibrillation type: unspecified Qualified Code(s): I48.91 - Unspecified atrial fibrillation Code(s): I48.91 - Unspecified atria
--- NOTE | 2023-10-23 11:11 | PM.PNPUL ---
Progress Note: A&P Assessment and Plan (1) Pneumonia: Code(s): J18.9 - Pneumonia, unspecified organism Status: Acute Assessment and Plan: An 88-year-old female patient was admitted with symptoms of respiratory distress, confusion, and hypoxemia, accompanied by a history of diarrhea and vomiting. Bilateral pneumonia was identified through chest imaging studies. The patient has tested positive for a Respiratory Syncytial Virus (RSV) infection. A positive urine antigen for Streptococcus pneumoniae suggests a co-infection with Streptococcal pneumonia. The patient's condition is gradually improving, and she is currently only on supplemental oxygen via a nasal cannula, marking a significant improvement from her initial high oxygen requirements. On physical examination, she continues to exhibit some chest congestion, but her ability to clear bronchial secretions has improved. The management plan includes the continuation of the current antibiotic regimen, along with short-acting bronchodilators and nebulized mucolytic agents. The patient will be encouraged to move from the bed to the chair. Lasix has been discontinued. Patient has been fluid negative for more than 2 L, while creatinine has risen to more than 1. (2) Atrial fibrillation: Qualifiers: Atrial fibrillation type: unspecified Qualified Code(s): I48.91 - Unspecified atrial fibrillation Code(s): I48.91 - Unspecified atrial fibrillation Status: Acute (3) Diabetes mellitus: Qualifiers: Diabetes mellitus type: type 2 Diabetes mellitus correction insulin use: without correction use Diabetes mellitus complication status: with other specified complication Qualified Code(s): E11.69 - Type 2 diabetes mellitus with other specified complication Code(s): E11.9 - Type 2 diabetes mellitus without complications Status: Chronic (4) Acute hypoxic respiratory failure: Code(s): J96.01 - Acute respiratory failure with hypoxia Status: Acute (5) Abdominal mass, left upper quadrant: Code(s): R19.02 - Left upper quadrant abdominal swelling, mass and lump Status: Acute Subjective Date/time seen: 10/23/23 11:11 Interval history: Patient does not have any new respiratory symptoms. She stated she is doing better. Has been on supplemental oxygen via nasal cannula 3 liters/minute. Has less chest congestion currently on oral antibiotic. Review of Systems Review of Systems: All systems reviewed & are unremarkable except as noted in HPI and below (HPI and below) Exam Narrative: GENERAL APPEARANCE: Well developed, well nourished, alert and cooperative, who appears to be in no respiratory distress while on nasal cannula 3 liters/minute SKIN: Inspection of the skin reveals no rashes, ulcerations or petechiae. HEENT: Sclerae anicteric and conjunctivae pink and moist. Extraocular movements were intact and pupils were equal, round, dry oral mucosa NECK: Supple. There was no thyroid enlargement, and no tenderness, or masses were felt. CHEST: Normal AP diameter and normal contour without any kyphoscoliosis. LUNGS: Crackles at bases posteriorly no wheezing CARDIAC: There was a regular rate and rhythm without any murmurs, gallops, rubs. ABDOMEN: Soft and nontender with normal bowel sounds. There was no organomegaly. LYMPH NODES: No lymphadenopathy was appreciated in the neck. EXTREMITIES: No cyanosis, clubbing or edema. NEUROLOGIC: Alert and oriented x 3. Normal affect. Objective Data Vital Signs Vital Signs: Vital Signs - 24 hr 10/22/23 12:00 10/22/23 12:00 10/22/23 12:00 Temperature 36.6 C Pulse Rate 85 89 Respiratory Rate 18 Blood Pressure 126/81 Pulse Oximetry 91 94 Oxygen Delivery Nasal Cannula Oxygen Flow Rate 3 10/22/23 14:00 10/22/23 14:30 10/22/23 14:45 Temperature Pulse Rate 79 78 84 Respiratory Rate 20 20 Blood Pressure Pulse Oximetry Oxygen Delivery Oxygen Flow
[2023-10-23 12:12] LABS: Glucose Point of Care 167 mg/dl (65-105)
[2023-10-23 17:30] LABS: Glucose Point of Care 158 mg/dl (65-105)
[2023-10-23] MEDS: AMOXICILLIN/CLAVULANATE K 875-125 MG TAB 1 TABLET PO (20:40)
[2023-10-23] MEDS: INSULIN GLARGINE (*BKC) 100 UNITS/ML 10 UNITS SUB-Q (20:40)
[2023-10-23 23:41] LABS: Glucose Point of Care 148 mg/dl (65-105)
[2023-10-24] VITALS (20 sets, daily range): BP systolic 99–102; BP diastolic 47–52; PULSE 70–91; RESP 16–18; TEMP 36.4–36.6; O2SAT 92–97
[2023-10-24] MEDS: IPRATROPIUM 0.5 MG/ALBUTEROL SULFATE 2.5 MG AMPUL.NEB 3 ML INHALATION ×4 (02:15→21:11)
[2023-10-24 06:03] LABS: Hematocrit 36.9 % (37.0-47.0); Hemoglobin 12.2 g/dL (12.0-15.0); Mean Corpuscular HGB Conc 33.1 g/dl (32-36); Mean Corpuscular Hemoglobin 30.4 pg (26-34); Mean Platelet Volume 9.9 fl (7.4-10.4); Platelet Count Result 407 k/mm3 (150-375); Red Blood Count 4.01 M/mm3 (4.2-5.4); White Blood Count 9.8 K/mm3 (4.5-10.0)
[2023-10-24 06:15] LABS: Alanine Aminotransferase 53 U/L (6-35); Albumin Level 3.3 g/dL (3.5-5.1); Alkaline Phosphatase 231 U/L (38-126); Anion Gap 8 mmol/L (8-16); Aspartate Amino Transferase 70 U/L (14-36); Bilirubin,Total 1.2 mg/dL (0.2-1.3); Blood Urea Nitrogen 30 mg/dL (7-17); Calcium 8.4 mg/dL (8.4-10.2); Carbon Dioxide 35 mmol/L (22-30); Chloride 94 mmol/L (98-107); Estimated CRCL calculation 29 ml/min; Estimated Glomerular Filt Rate 42; Glucose 137 mg/dL (65-110); Magnesium 2.3 mg/dL (1.6-2.3); Potassium 3.4 mmol/L (3.4-5.0); Sodium 137 mmol/L (137-145)
[2023-10-24 06:16] LABS: CA 19-9 24 U/mL (<34)
[2023-10-24] MEDS: ACETYLCYSTEINE 20% INHAL SOLN 800 MG/4 ML VIAL 200 MG INHALATION ×2 (07:34→21:11)
[2023-10-24 07:39] LABS: Atypical Lymphocytes Present; Band Neutrophils Percent 8 % (0-6); Eosinophils Absolute Manual 0.19 K/mm3 (0.02-0.5); Eosinophils Percent Manual 2 % (0-4); Lymphocytes Absolute Manual 1.27 K/mm3 (1.1-4.5); Metamyelocytes Percent 1 %; Monocytes Absolute Manual 0.19 K/mm3 (0.1-0.90); Monocytes Percent Manual 2 % (3-9); Neutrophils Absolute Manual 8.03 K/mm3 (1.7-7.2); Neutrophils Percent Manual 74 % (46-73); Platelet Estimate Adequate (Adequate); Schistocytes None Seen (NORMAL); Total Cells Counted 100
[2023-10-24 09:03] LABS: Glucose Point of Care 141 mg/dl (65-105)
--- NOTE | 2023-10-24 09:13 | PM.PNPUL ---
Progress Note: A&P Assessment and Plan (1) Pneumonia: Code(s): J18.9 - Pneumonia, unspecified organism Status: Acute Assessment and Plan: An 88-year-old female patient was admitted with symptoms of respiratory distress, confusion, and hypoxemia, accompanied by a history of diarrhea and vomiting. Bilateral pneumonia was identified through chest imaging studies. The patient has tested positive for a Respiratory Syncytial Virus (RSV) infection. A positive urine antigen for Streptococcus pneumoniae suggests a co-infection with Streptococcal pneumonia. The patient's condition is gradually improving, and she is currently only on supplemental oxygen via a nasal cannula, marking a significant improvement from her initial high oxygen requirements. On physical examination, she continues to exhibit some chest congestion, but her ability to clear bronchial secretions has improved. The management plan includes the continuation of the current antibiotic regimen, along with short-acting bronchodilators and nebulized mucolytic agents. The patient will be encouraged to move from the bed to the chair. (2) Atrial fibrillation: Qualifiers: Atrial fibrillation type: unspecified Qualified Code(s): I48.91 - Unspecified atrial fibrillation Code(s): I48.91 - Unspecified atrial fibrillation Status: Acute (3) Diabetes mellitus: Qualifiers: Diabetes mellitus type: type 2 Diabetes mellitus assisted insulin use: without technician terminal and repeater use Diabetes mellitus complication status: with other specified complication Qualified Code(s): E11.69 - Type 2 diabetes mellitus with other specified complication Code(s): E11.9 - Type 2 diabetes mellitus without complications Status: Chronic (4) Acute hypoxic respiratory failure: Code(s): J96.01 - Acute respiratory failure with hypoxia Status: Acute (5) Abdominal mass, left upper quadrant: Code(s): R19.02 - Left upper quadrant abdominal swelling, mass and lump Status: Acute Subjective Date/time seen: 10/24/23 09:13 Interval history: Patient does not have any new respiratory symptoms. She stated she is doing better. Ambulated in room yesterday. Remains on oxygen 3 liters/minute. Still with chest congestion Review of Systems Review of Systems: All systems reviewed & are unremarkable except as noted in HPI and below (HPI and below) Exam Narrative: GENERAL APPEARANCE: Well developed, well nourished, alert and cooperative, who appears to be in no respiratory distress while on nasal cannula 3 liters/minute SKIN: Inspection of the skin reveals no rashes, ulcerations or petechiae. HEENT: Sclerae anicteric and conjunctivae pink and moist. Extraocular movements were intact and pupils were equal, round, dry oral mucosa NECK: Supple. There was no thyroid enlargement, and no tenderness, or masses were felt. CHEST: Normal AP diameter and normal contour without any kyphoscoliosis. LUNGS: Crackles at bases posteriorly no wheezing, few rhonchi anteriorly CARDIAC: There was a regular rate and rhythm without any murmurs, gallops, rubs. ABDOMEN: Soft and nontender with normal bowel sounds. There was no organomegaly. LYMPH NODES: No lymphadenopathy was appreciated in the neck. EXTREMITIES: No cyanosis, clubbing or edema. NEUROLOGIC: Alert and oriented x 3. Normal affect. Objective Data Vital Signs Vital Signs: Vital Signs - 24 hr 10/23/23 09:23 10/23/23 09:25 10/23/23 09:25 Temperature Pulse Rate 85 82 Respiratory Rate 18 Blood Pressure 121/73 Pulse Oximetry 96 96 Oxygen Delivery High Flow Nasal Cannula Oxygen Flow Rate 3 Fraction of Inspired Oxygen 10/23/23 12:00 10/23/23 13:05 10/23/23 13:15 Temperature Pulse Rate 79 78 80 Respiratory Rate 18 18 Blood Pressure Pulse Oximetry Oxygen Delivery Oxygen Flow Rate Fraction of Inspired Oxygen 10/23/23 13:42 10/23/23 16:00 10/23/23 19:56
[2023-10-24] MEDS: APIXABAN 5 MG TABLET PO ×2 (09:25→20:23)
[2023-10-24] MEDS: AMOXICILLIN/CLAVULANATE K 875-125 MG TAB 1 TABLET PO ×2 (09:25→20:24)
[2023-10-24] MEDS: LOSARTAN POTASSIUM 50 MG TABLET PO (09:25)
[2023-10-24] MEDS: MECLIZINE HCL 12.5 MG TABLET PO (09:25)
[2023-10-24] MEDS: ATORVASTATIN 40 MG TABLET 80 MG PO (09:25)
[2023-10-24] MEDS: guaiFENesin 12 HR 600 MG TABCR PO ×2 (09:25→20:23)
[2023-10-24] MEDS: LIDOCAINE 5% PATCH 2 PATCH TOPICAL (09:25)
[2023-10-24] MEDS: dilTIAZem HCL CD 120 MG CAP.24HR PO (09:25)
[2023-10-24 11:49] LABS: Glucose Point of Care 200 mg/dl (65-105)
--- NOTE | 2023-10-24 12:32 | P.PNIM_ITS ---
Progress Note: A&P Assessment and Plan (1) RSV infection: Code(s): B33.8 - Other specified viral diseases Status: Acute Assessment and Plan: * Head CT was negative for any acute process. * RSV positive respiratory panel. * nebs, supportive care * Blood cultures negative. * Pulmonology consulted and gave recommendations for support and will continue to follow along with us. * Mucinex per Pulmonology recommendations. * Weaning oxygen to 3L NC continue to wean to maintain O2 saturation greater than 92%. (2) Acute hypoxic respiratory failure: Code(s): J96.01 - Acute respiratory failure with hypoxia Status: Acute Assessment and Plan: * Continue supplemental oxygen with titration to keep sats up. * Pt wears no oxygen at baseline but currently on 3L. * Continue Duonebs Q6 hrs * Consult Pulmonology * CTA PE protocol performed and negative for PE * Rocephin and Azithromycin decelerated to Augmentin * MRSA swab is negative. * Urine for Strep Pneumococcal antigen detected. (3) Abnormal chest xray: Code(s): R93.89 - Abnormal findings on diagnostic imaging of other specified body structures Status: Acute Assessment and Plan: * Repeat CXR 10/14/23 shows an interval development of PNA. * Repeat CXR 10/19/23 showed worsening of PNA and it is in all lobes. * CTA results are negative for PE (4) Atrial fibrillation: Qualifiers: Atrial fibrillation type: unspecified Qualified Code(s): I48.91 - Unspecified atrial fibrillation Code(s): I48.91 - Unspecified atrial fibrillation Status: Acute Assessment and Plan: * Pt with new onset * Started on Diltiazem CD 120 mg which is providing adequate rate control. * CHADs Vasc 2 score of 4 * Serial trops were elevated and flat, suspecting strongly demand ischemia as EKG showed A-fib RVR * ECHO performed showing Hyperdynamic LVSF with EF of >70% and a Grade 3 diastolic dysfunction. * Cardiology was consulted and starting on Eliquis 5 mg BID. * Pacemaker to be interrogated. * Cards signed off. (5) Hypokalemia: Code(s): E87.6 - Hypokalemia Status: Resolved Assessment and Plan: Replenish as nessessary. (6) Abdominal mass, left upper quadrant: Code(s): R19.02 - Left upper quadrant abdominal swelling, mass and lump Status: Acute Assessment and Plan: * Coincidental finding on CTA PE protocol show multiple masses that are concerning for malignancy around the pancreas, in addition, there is cirrhosis of the liver, and chest LN. * I spoke with pt's daughter, Renee, as pt herself is a poor historian, and she verifies that she has no history of any cancer anywhere in her body that is known. I explained the findings on CT scan and she will have repeat CT tomorrow. * 10/20/23: Pt had CT scan of abdomen that showed interval increase in size of a couple of masses in the left upper quadrant between the tail of pancreas and the splenic hilum which are nonspecific but concerning for malignancy including lymphoma, metastatic disease, or potentially pancreatic neoplasm arising from the tail. The mass is not readily amenable to percutaneous biopsy, but could be endoscopically biopsied with US. There is also mild mediastinal and bilateral hilar LN that could be reactive or due to metastatic disease or lymphoma. GI consult is ordered. * 10/21/23: Dr. Thomas consulted on pt and acknowledges she will need an EUS when she is mo
--- NOTE | 2023-10-24 12:32 | PM.IMPN ---
Progress Note: A&P Assessment and Plan (1) RSV infection: Code(s): B33.8 - Other specified viral diseases Status: Acute Assessment and Plan: Head CT was negative for any acute process. RSV positive respiratory panel. nebs, supportive care Blood cultures negative. Pulmonology consulted and gave recommendations for support and will continue to follow along with us. Mucinex per Pulmonology recommendations. Weaning oxygen to 3L NC continue to wean to maintain O2 saturation greater than 92%. (2) Acute hypoxic respiratory failure: Code(s): J96.01 - Acute respiratory failure with hypoxia Status: Acute Assessment and Plan: Continue supplemental oxygen with titration to keep sats up. Pt wears no oxygen at baseline but currently on 3L. Continue Duonebs Q6 hrs Consult Pulmonology CTA PE protocol performed and negative for PE Rocephin and Azithromycin decelerated to Augmentin MRSA swab is negative. Urine for Strep Pneumococcal antigen detected. (3) Abnormal chest xray: Code(s): R93.89 - Abnormal findings on diagnostic imaging of other specified body structures Status: Acute Assessment and Plan: Repeat CXR 10/14/23 shows an interval development of PNA. Repeat CXR 10/19/23 showed worsening of PNA and it is in all lobes. CTA results are negative for PE (4) Atrial fibrillation: Qualifiers: Atrial fibrillation type: unspecified Qualified Code(s): I48.91 - Unspecified atrial fibrillation Code(s): I48.91 - Unspecified atrial fibrillation Status: Acute Assessment and Plan: Pt with new onset Started on Diltiazem CD 120 mg which is providing adequate rate control. CHADs Vasc 2 score of 4 Serial trops were elevated and flat, suspecting strongly demand ischemia as EKG showed A-fib RVR ECHO performed showing Hyperdynamic LVSF with EF of >70% and a Grade 3 diastolic dysfunction. Cardiology was consulted and starting on Eliquis 5 mg BID. Pacemaker to be interrogated. Cards signed off. (5) Hypokalemia: Code(s): E87.6 - Hypokalemia Status: Resolved Assessment and Plan: Replenish as nessessary. (6) Abdominal mass, left upper quadrant: Code(s): R19.02 - Left upper quadrant abdominal swelling, mass and lump Status: Acute Assessment and Plan: Coincidental finding on CTA PE protocol show multiple masses that are concerning for malignancy around the pancreas, in addition, there is cirrhosis of the liver, and chest LN. I spoke with pt's daughter, Renee, as pt herself is a poor historian, and she verifies that she has no history of any cancer anywhere in her body that is known. I explained the findings on CT scan and she will have repeat CT tomorrow. 10/20/23: Pt had CT scan of abdomen that showed interval increase in size of a couple of masses in the left upper quadrant between the tail of pancreas and the splenic hilum which are nonspecific but concerning for malignancy including lymphoma, metastatic disease, or potentially pancreatic neoplasm arising from the tail. The mass is not readily amenable to percutaneous biopsy, but could be endoscopically biopsied with US. There is also mild mediastinal and bilateral hilar LN that could be reactive or due to metastatic disease or lymphoma. GI consult is ordered. 10/21/23: Dr. Thomas consulted on pt and acknowledges she will need an EUS when she is more medically stable with regards to respiratory status. In the interim time he has ordered an alpha fetoprotein tumor marker and CA19 level. Thank you to Dr. Thomas for his consult an collaboration on this pt. 10/23/23: This pt will still need referral to facility/provider on discharge that can perform EUS with biopsy. (7) Diabetes mellitus: Qualifiers: Diabetes mellitus type: type 2 Diabetes mellitus snf insulin use: without snf use
[2023-10-24] MEDS: FUROSEMIDE INJ 40 MG/4 ML VIAL IV PUSH (16:02)
[2023-10-24 17:07] LABS: Glucose Point of Care 236 mg/dl (65-105)
[2023-10-24] MEDS: INSULIN ASPART (*BKC) 100 UNITS/ML SUB-Q (17:34)
[2023-10-24] MEDS: GABAPENTIN 300 MG CAPSULE PO (20:23)
[2023-10-24] MEDS: INSULIN GLARGINE (*BKC) 100 UNITS/ML 10 UNITS SUB-Q (20:24)
[2023-10-24 22:06] LABS: Glucose Point of Care 166 mg/dl (65-105)
[2023-10-25] VITALS (13 sets, daily range): BP systolic 117; BP diastolic 56; PULSE 70–84; RESP 16–18; TEMP 36.4; O2SAT 94–95
[2023-10-25] MEDS: IPRATROPIUM 0.5 MG/ALBUTEROL SULFATE 2.5 MG AMPUL.NEB 3 ML INHALATION ×3 (02:44→13:15)
[2023-10-25 06:14] LABS: Hematocrit 35.8 % (37.0-47.0); Hemoglobin 11.7 g/dL (12.0-15.0); Mean Corpuscular HGB Conc 32.7 g/dl (32-36); Mean Corpuscular Hemoglobin 30.3 pg (26-34); Mean Corpuscular Volume 92.7 fl (80-100); Mean Platelet Volume 9.9 fl (7.4-10.4); Platelet Count Result 399 k/mm3 (150-375); Red Blood Count 3.86 M/mm3 (4.2-5.4); White Blood Count 9.5 K/mm3 (4.5-10.0)
[2023-10-25 06:23] LABS: Anion Gap 7 mmol/L (8-16); Blood Urea Nitrogen 33 mg/dL (7-17); Calcium 8.3 mg/dL (8.4-10.2); Carbon Dioxide 34 mmol/L (22-30); Chloride 94 mmol/L (98-107); Estimated CRCL calculation 30 ml/min; Estimated Glomerular Filt Rate 47; Glucose 158 mg/dL (65-110); Potassium 3.3 mmol/L (3.4-5.0); Sodium 135 mmol/L (137-145)
[2023-10-25] MEDS: ACETYLCYSTEINE 20% INHAL SOLN 800 MG/4 ML VIAL 200 MG INHALATION (07:24)
[2023-10-25 08:17] LABS: Glucose Point of Care 153 mg/dl (65-105)
[2023-10-25] MEDS: dilTIAZem HCL CD 120 MG CAP.24HR PO (08:55)
[2023-10-25] MEDS: LIDOCAINE 5% PATCH 2 PATCH TOPICAL (08:55)
[2023-10-25] MEDS: APIXABAN 5 MG TABLET PO (08:55)
[2023-10-25] MEDS: POTASSIUM CHLORIDE 20 MEQ PACKET (FOR LIQUID) PO (08:55)
[2023-10-25] MEDS: LOSARTAN POTASSIUM 50 MG TABLET PO (08:56)
[2023-10-25] MEDS: AMOXICILLIN/CLAVULANATE K 875-125 MG TAB 1 TABLET PO (08:56)
[2023-10-25] MEDS: guaiFENesin 12 HR 600 MG TABCR PO (08:56)
[2023-10-25] MEDS: MECLIZINE HCL 12.5 MG TABLET PO (08:56)
[2023-10-25] MEDS: ATORVASTATIN 40 MG TABLET 80 MG PO (08:56)
--- NOTE | 2023-10-25 09:55 | PM.PNPUL ---
Progress Note: A&P Assessment and Plan (1) Pneumonia: Code(s): J18.9 - Pneumonia, unspecified organism Status: Acute Assessment and Plan: An 88-year-old female patient was admitted with symptoms of respiratory distress, confusion, and hypoxemia, accompanied by a history of diarrhea and vomiting. Bilateral pneumonia was identified through chest imaging studies. The patient has tested positive for a Respiratory Syncytial Virus (RSV) infection. A positive urine antigen for Streptococcus pneumoniae suggests a co-infection with Streptococcal pneumonia. The patient's condition is gradually improving, and she is currently only on supplemental oxygen via a nasal cannula, marking a significant improvement from her initial high oxygen requirements. On physical examination, she continues to exhibit some chest congestion, but her ability to clear bronchial secretions has improved. Overall her respiratory status is significantly improved. The treatment strategy involves maintaining the existing antibiotic regimen for a total of 8 days since admission. Nebulized mucolytic agents will be discontinued. Short-acting bronchodilators will be continued on an as-needed basis. The most recent chest x-ray demonstrated resolution of bilateral infiltrates associated with pneumonia. I will now conclude my involvement in this case. There is no need for the patient to return to the pulmonary clinic for a follow-up. If a home oxygen evaluation indicates oxyhemoglobin desaturation, temporary home oxygen therapy may be required. (2) Atrial fibrillation: Qualifiers: Atrial fibrillation type: unspecified Qualified Code(s): I48.91 - Unspecified atrial fibrillation Code(s): I48.91 - Unspecified atrial fibrillation Status: Acute (3) Diabetes mellitus: Qualifiers: Diabetes mellitus complication status: with other specified complication Diabetes mellitus detention insulin use: without intermediate manager use Diabetes mellitus type: type 2 Qualified Code(s): E11.69 - Type 2 diabetes mellitus with other specified complication Code(s): E11.9 - Type 2 diabetes mellitus without complications Status: Chronic (4) Acute hypoxic respiratory failure: Code(s): J96.01 - Acute respiratory failure with hypoxia Status: Acute (5) Abdominal mass, left upper quadrant: Code(s): R19.02 - Left upper quadrant abdominal swelling, mass and lump Status: Acute Subjective Date/time seen: 10/25/23 09:55 Interval history: Patient has no new respiratory symptoms. Chest congestion has significantly improved. Less coughing no sputum production and no wheezing. Sitting comfortably in chair on low oxygen flow via nasal cannula. Able to take few steps in room Review of Systems Review of Systems: All systems reviewed & are unremarkable except as noted in HPI and below (HPI and below) Exam Narrative: GENERAL APPEARANCE: Well developed, well nourished, alert and cooperative, who appears to be in no respiratory distress while on nasal cannula 3 liters/minute SKIN: Inspection of the skin reveals no rashes, ulcerations or petechiae. HEENT: Sclerae anicteric and conjunctivae pink and moist. Extraocular movements were intact and pupils were equal, round, dry oral mucosa NECK: Supple. There was no thyroid enlargement, and no tenderness, or masses were felt. CHEST: Normal AP diameter and normal contour without any kyphoscoliosis. LUNGS: Ray crackles at bases posteriorly, clear lungs anteriorly no wheezing. CARDIAC: There was a regular rate and rhythm without any murmurs, gallops, rubs. ABDOMEN: Soft and nontender with normal bowel sounds. There was no organomegaly. LYMPH NODES: No lymphadenopathy was appreciated in the neck. EXTREMITIES: No cyanosis, clubbing or edema. NEUROLOGIC: Alert and oriented x 3. Normal affect. Objective Data Vital Signs Vital Signs: Vital Signs - 24 hr 10/24/23 12:05 10/24/23 13:58 10/24
[2023-10-25 12:20] LABS: Glucose Point of Care 196 mg/dl (65-105)
--- NOTE | 2023-10-25 12:40 | PM.DS ---
DS: Admitting Diagnosis Discharge Date 10/25/23 Admitting Diagnosis RSV, pneumonia DS: Discharge Diagnosis Discharge Diagnosis (1) RSV infection: Code(s): B33.8 - Other specified viral diseases Status: Acute (2) Acute hypoxic respiratory failure: Code(s): J96.01 - Acute respiratory failure with hypoxia Status: Acute (3) Abnormal chest xray: Code(s): R93.89 - Abnormal findings on diagnostic imaging of other specified body structures Status: Acute (4) Atrial fibrillation: Qualifiers: Atrial fibrillation type: unspecified Qualified Code(s): I48.91 - Unspecified atrial fibrillation Code(s): I48.91 - Unspecified atrial fibrillation Status: Acute (5) Hypokalemia: Code(s): E87.6 - Hypokalemia Status: Resolved (6) Abdominal mass, left upper quadrant: Code(s): R19.02 - Left upper quadrant abdominal swelling, mass and lump Status: Acute (7) Diabetes mellitus: Qualifiers: Diabetes mellitus type: type 2 Diabetes mellitus oil heaterman insulin use: without oil heaterman use Diabetes mellitus complication status: with other specified complication Qualified Code(s): E11.69 - Type 2 diabetes mellitus with other specified complication Code(s): E11.9 - Type 2 diabetes mellitus without complications Status: Chronic DS: Summary Hospital Course Hospital Course: This is an 88-year-old female with past medical history of diabetes, hypertension hyperlipidemia that was admitted to the hospital for confusion. She had recently been treated for a UTI but at the time for presentation she was found to be hypoxic. She does not wear oxygen at baseline. She tested RSV positive on respiratory panel. Chest x-ray negative for pneumonia. Patient was started on DuoNebs for her RSV. Her respiratory status declined and she had to be put on BiPAP for a short amount of time. Pulmonology was consulted and help comanage the patient. BiPAP improved patient's respiratory status. She had a repeat chest x-ray showing development of pneumonia and she was started on antibiotics. She was eventually able to be taken off BiPAP and put nasal cannula. Patient was able to come off IV antibiotics and put on Augmentin for the duration of her stay. She was on 1 L on day of discharge but repeat chest x-ray showed improved pneumonia. She will be discharged to SNF for rehab. Labs and vital signs are stable and she is medically clear for discharge at this time. Patient had a chest CTA due to for concerns for a PE and there were multiple masses noted that were concerning for malignancy in this. She had a CT scan of the abdomen and pelvis showing interval increase in size of a couple of masses in the left upper quadrant between the tail of pancreas and the splenic hilum which are nonspecific but concerning for malignancy including lymphoma, metastatic disease, or potentially pancreatic neoplasm arising from the tail. GI was consulted and GI recommended a EUS once the patient was more stable. Recommend that patient follow-up as an outpatient for an EUS with biopsy. Time Spent with Patient Time attestation: Total time spent providing and/or coordinating discharge services: DS: Data Data Completed and Pending Labs on day of discharge: Labs from last 24 hours 10/25/23 10/25/23 10/25/23 12:13 08:13 05:38 WBC 9.5 RBC 3.86 L Hgb 11.7 L Hct 35.8 L MCV 92.7 MCH 30.3 MCHC 32.7 RDW 14.0 Plt Count 399 H MPV 9.9 Sodium 135 L Potassium 3.3 L Chloride 94 L Carbon Dioxide 34 H Anion Gap 7 L BUN 33 H Creatinine 1.10 H Estim Creat Clear Calc 30 Estimated GFR 47 L Glucose 158 H POC Capillary Glucose 196 H 153 H Calcium 8.3 L 10/24/23 10/24/23 20:05 17:02 WBC RBC Hgb Hct MCV MCH MCHC RDW Plt Count MPV Sodium Potassium Chloride Carbon Dioxide Anion Gap BUN
--- NOTE | 2023-10-25 13:30 | PCRCNOTE ---
No home o2 eval not needed if D/C to SNF. Pt will be titrated at facility by senior care staff to keep sats normal. O2 is provided.
[2023-10-25 15:51] LABS: Alpha Fetoprotein Tumor Marker 1.4 ng/mL (<6.1)
--- NOTE | 2023-10-30 14:49 | IVDEFINITY ---
Prior to administration of IV Definity the patient was educated on the risks and benefits of the imaging enhancing agent including potential adverse side effects. The patient verbalized understanding. Allergies were verified. No exclusion criteria were identified and at least one of the following inclusion criteria were met: 1) physician request, 2) patient technically difficult to image (per the [place] [employer] guidelines of two or more segments not discernable within the apical view), or 3) questionable left ventricular function. ?
== END 2023-10-25 15:17 | DRG 193 ==
LOC: ANHED 10-15 00:26 → ANH2MED 10-15 01:38 → ANHIMU 10-17 23:09 → ANH3MED 10-23 05:58
PROVIDERS: Internal Medicine; Internal Medicine Critical Care Medicine; Internal Medicine Gastroenterology; Nurse Practitioner; Admitting Provider Internal Medicine; Emergency Provider Emergency Medicine; PCP Internal Medicine; Visit Provider Nurse Practitioner Adult Health
DX: J13 Pneumonia due to Streptococcus pneumoniae (principal); J96.01 Acute respiratory failure with hypoxia; B33.8 Other specified viral diseases; I10 Essential (primary) hypertension; I48.91 Unspecified atrial fibrillation; E11.9 Type 2 diabetes mellitus without complications; E78.5 Hyperlipidemia, unspecified; E66.9 Obesity, unspecified; E87.6 Hypokalemia; K74.60 Unspecified cirrhosis of liver; R19.02 Left upper quadrant abdominal swelling, mass and lump; F41.9 Anxiety disorder, unspecified; Z20.822 Contact with and (suspected) exposure to COVID-19; Z95.0 Presence of cardiac pacemaker
CPT/HCPCS: 36415; 36600; 70450; 71045; 71275; 74177; 80048; 80053; 80202; 81001; 81003; 82105; 82805; 82948; 83605; 83690; 83735; 83880; 84100; 84145; 84484; 85025; 85027; 85610; 85730; 86301; 87040; 87449; 87637; 87641; 87899; 93005; 94640; 96360; 96361; 97110; 97116; 97161; 97162; 97164; 97166; 97530; 97535; 99285; A9270; C8929; G0378; J0456; J0696; J1650; J1815; J1940; J3370; J3480; J7030; J7040; J7060; Q9957; Q9967

== ENCOUNTER 2024-01-24 12:15 | Outpatient (CLI) | payer MEDICARE, MEDICAID, SELFPAY ==
--- NOTE | ~2024-01-24 | PE_ITS ---
EXAMINATION: PET skull to mid thigh DATE: 01/24/2024 14:26 INDICATION: Pancreatic mass TECHNIQUE: Blood glucose level was 106 mg/dL. 8.656 mCi of 18-fluorodeoxyglucose (18-FDG) was adminis tered i.v. Low dose computed tomography (CT) images were acquired from the base of the brain to the p roximal thighs for attenuation correction and anatomic localization. Positron emission tomography (PE T) images were acquired in the same distribution beginning 61 minutes after injection. Images includi ng fused PET/CT images were reconstructed in axial, coronal, and sagittal planes. Automated exposure control technique was employed. The dose-length product was 1020.14mGy-cm. COMPARISON: None FINDINGS: Head/neck: There is symmetric increased activity in the oral cavity, palatine and lingual tonsils, and ocular mu scles without CT correlate, likely physiologic. No pathologically enlarged cervical lymphadenopathy o r suspicious foci of increased FDG uptake in the visualized head or neck. Chest: Mild dependent atelectasis in the bilateral lower lobes. No suspicious pulmonary nodules, pneumonia, pulmonary edema or pleural effusion. Mild cardiomegaly. Atherosclerotic coronary artery calcific lesi on. No pericardial effusion. Dual lead pacemaker seen with lead tips at the right atrium and right ve ntricle. Thoracic aorta is normal in caliber. No pathologically enlarged or FDG avid thoracic lymphad enopathy. Abdomen/pelvis/proximal thighs: Physiologic renal accumulation and excretion of FDG activity in the kidneys, bladder and along portio ns of ureters. Normal degree and heterogenous pattern of increased uptake throughout the liver withou t radiologic correlate or dominant FDG avid lesion. Cholecystectomy clips at the gallbladder fossa. S pleen and bilateral adrenal glands are normal. There are multiple FDG avid retroperitoneal mass in th e left upper quadrant situated between the splenic hilum, the gastric fundus and the tail of the panc reas. For reference the largest such mass measures 3.8 x 3.5 cm with maximal SUV of 19.1. There is a 3.0 x 1.6 similar FDG avid portacaval mass with likely a metastatic lymph node with maximal SUV of 31 .4. There are 3 additional smaller FDG avid masses extending along the intervening splenic vein also suspicious for facet disease. Mild to moderate uptake scattered throughout the bowels without radiolo gic correlate, also likely physiologic. The uterus is not identified and has likely been surgically r esected. No other abnormal foci of increased FDG uptake or pathologically enlarged lymphadenopathy in the abdomen, pelvis or proximal thighs. Musculoskeletal: Mild likely degenerative synovial uptake at the bilateral hips without radiologic correlate. No suspi cious lytic, blastic or FDG avid bone lesions to suggest osseous metastatic disease. IMPRESSION: 1. Multiple FDG avid masses in the upper abdomen extending between the splenic hilum and enlarged and FDG avid likely portacaval lymph node. This is suspicious for lymphoma or metastatic disease or pote ntially arising from either a gastric or pancreatic tail primary malignancy. The left upper quadrant masses situated between the spleen, tail the pancreas and fundus of the stomach would be amenable to ultrasound-guided endoscopic biopsy which would be recommended. Reviewed, dictated and finalized at location A. IMPRESSION: 1. Multiple FDG avid masses in the upper abdomen extending between the splenic hilum and enlarged and FDG avid likely portacaval lymph node. This is suspiciou s for lymphoma or metastatic disease or potentially arising from either a gastr ic or pancreatic tail primary malignancy. The left upper quadrant masses situat ed between the spleen, tail the pancreas and fundus of the stomach would be erinn nable
[2024-01-24 12:53] LABS: Glucose Point of Care 106 mg/dl (65-105)
== END 2024-01-24 12:16 | disposition home or self-care (01) ==
PROVIDERS: PCP Internal Medicine; Visit Provider Internal Medicine
DX: R93.5 Abnormal findings on diagnostic imaging of other abdominal regions, including retroperitoneum (principal); R19.00 Intra-abdominal and pelvic swelling, mass and lump, unspecified site
CPT/HCPCS: 78815; A9552

== ENCOUNTER 2024-02-04 10:34 | Outpatient (CLI) | payer MEDICARE, MEDICAID, SELFPAY ==
[2024-02-04 11:02] LABS: Basophils Absolute Auto 0.1 K/mm3 (0.0-0.1); Basophils Percent Auto 0.6 % (0.2-1.2); Eosinophils Absolute Auto 0.2 K/mm3 (0-0.3); Immature Granulocyte Absolute 0.03 K/mm3 (0.00-0.031); Immature Granulocyte Percent A 0.4 % (0-0.5); Lymphocytes Percent Auto 35.5 % (18.3-44.2); Mean Corpuscular HGB Conc 32.4 g/dl (32-36); Mean Corpuscular Hemoglobin 30.6 pg (26-34); Mean Corpuscular Volume 94.4 fl (80-100); Mean Platelet Volume 10.2 fl (7.4-10.4); Monocytes Absolute Auto 0.7 K/mm3 (0.1-0.6); Monocytes Percent Auto 9.1 % (2.6-8.5); Neutrophils Percent Auto 51.4 % (45.5-73.1); Platelet Count Result 197 k/mm3 (150-375); Red Blood Count 3.92 M/mm3 (4.2-5.4); Red Cell Distribution Width 13.9 % (11.5-14.5); White Blood Count 7.9 K/mm3 (4.5-10.0)
[2024-02-04 15:49] LABS: Alanine Aminotransferase 22 U/L (6-35); Albumin Level 3.9 g/dL (3.5-5.1); Alkaline Phosphatase 138 U/L (38-126); Anion Gap 6 mmol/L (4-12); Aspartate Amino Transferase 29 U/L (14-36); Bilirubin,Total 1.4 mg/dL (0.2-1.3); Blood Urea Nitrogen 17 mg/dL (7-17); Calcium 8.9 mg/dL (8.4-10.2); Carbon Dioxide 27 mmol/L (22-30); Chloride 107 mmol/L (98-107); Estimated Glomerular Filt Rate 59; Glucose 120 mg/dL (65-110); Lactate Dehydrogenase 273 U/L (120-246); Potassium 4.1 mmol/L (3.4-5.0); Sodium 140 mmol/L (137-145)
== END 2024-02-04 10:35 | disposition home or self-care (01) ==
PROVIDERS: PCP Internal Medicine; Visit Provider Internal Medicine Hematology & Oncology
DX: R59.1 Generalized enlarged lymph nodes (principal)
CPT/HCPCS: 36415; 80053; 83615; 85025; 88184

== ENCOUNTER 2024-11-12 12:32 | Emergency (ER) | payer MEDICARE, SELFPAY ==
[2024-11-12 12:34] VITALS: BP 98/65; PULSE 126; RESP 20; TEMP 36.1; O2SAT 100
--- NOTE | 2024-11-12 13:12 | ED.GENADULT ---
HPI - General Adult General Chief complaint: Unspecified Stated complaint: hurts all over, bed confined Time Seen by Provider: 11/12/24 12:44 History of Present Illness HPI narrative: This is an 81-year-old female history of metastatic cancer presenting with total body pain. Patient is in significant distress and cannot provide any information she is responsive to voice at this time. Patient was recently discharged from hospital after being diagnosed with a dx of UTI/hypoglycemia. Over last 2-3 days her family says that she is becoming more confused than usual. She has also had nausea, vomiting and diarrhea. Goals of care were discussed with the patient's daughter. The patient's daughter states that her life is filled with pain and she has poor quality of life this time. They would do not want to pursue aggressive care due to metastatic cancer and poor quality of life. Patient has been made comfort measures only. Related Data Home Medications ?Medication ?Instructions ?Recorded ?Confirmed ?Last Taken ?Type albuterol sulfate 90 mcg/actuation 90 mcg inhalation BID PRN 10/12/20 10/27/24 Unknown History aerosol inhaler shortness of breath or wheezing atorvastatin 80 mg tablet 80 mg PO DAILY 10/12/20 10/27/24 Unknown History lorazepam 0.5 mg tablet 0.5 mg PO TID 10/12/20 10/27/24 Unknown History losartan 50 mg tablet 50 mg PO DAILY 10/17/23 10/27/24 Unknown History meclizine 12.5 mg tablet 12.5 mg PO DAILY 10/17/23 10/27/24 Unknown History diltiazem HCl 120 mg 120 mg PO Q24H 10/27/24 10/27/24 Unknown History capsule,extended release 24 hr ipratropium bromide 17 1 puff inhalation QID PRN 10/27/24 10/27/24 Unknown History mcg/actuation HFA aerosol inhaler shortness of breath or wheezing Allergies Allergy/AdvReac Type Severity Reaction Status Date / Time codeine Allergy Unknown Other Verified 10/14/23 21:05 ibuprofen AdvReac Severe Nausea and Verified 10/17/23 09:27 Vomiting PMFSH Past Medical History Medical History Paroxysmal atrial fibrillation (~10/2023) Obstructive sleep apnea Metastatic primary lung cancer Grade III diastolic dysfunction Echo October 2023: EF greater than 70%, mildly increased left ventricular wall thickness, grade 3 diastolic dysfunction, normal right ventricular systolic function, trace tricuspid regurgitation Cirrhosis Anxiety Hypertension Hyperlipemia Shingles Obesity Diabetes mellitus Surgical History Surgical History Status post biventricular cardiac pacemaker insertion (~2020) Followed with [facility] History of appendectomy H/O: hysterectomy Family History Family History Mother Hypertension Family history of diabetes mellitus in first degree relative Father Family history of coronary artery disease Sibling Family history of malignant neoplasm of breast in first degree relative Social History Social History (Updated 10/28/24 @ 07:33 by Jessica Newman DO) Social History: Patient lives in her own home with her daughter and her grandson. She is a lifelong nonsmoker and does not drink alcohol. She raised 7 children. She reports that she is estranged from all of her children except for her daughter. She reports that she is . She ambulates with a walker. Code status: Full code (per EMR) Surrogate decision maker: Renee Marie (daughter) Smoking status: Never smoker Alcohol intake: never Substance use: never Do You Feel Safe in your Home?: Yes Lack of Transportation: No Lack of Food: Never True Current Housing: I Have Housing Concerned About Future Housing: No Difficulty Paying Gas/Electric Bills: No Difficulty Paying for Meds: No Currently Unemployed: No Education: Decline to Answer Difficulty w/ Childcare or Family Care: No Spiritual care concerns: No Exam Narrative: APPEARANCE: Patient is her room rolling on a stretcher moaning in pain, unable to answer questions Head: atraumatic. EYES: EOMI, NOSE: Atraumatic NECK: Trachea midline RESPIRATORY: Tachypneic, scattered rhonchi CARDIOVASCULAR: Tachycardic ABDOMINAL: Non-distended MUSCULOSKELETAl: No obvious deformities NEURO: Alert. Moving 4/4 extremities SKIN:: Clammy, diaphoretic PSYCHIATRIC: Normal affect Course Vital Signs Vital signs: Vital Signs Temperature 97 F L 11/12/24 12:34 Pulse Rate 126 H 11/12/24 12:34 Respiratory Rate 20 11/12/24 12:34 Blood Pressure 98/65 L 11/12/24 12:34 Pulse Oximetry 100 11/12/24 12:34 Oxygen Delivery Nasal Cannula 11/12/24 12:34 Oxygen Flow Rate 4 11/12/24 12:34 Temperature 97 F L 11/12/24 12:34 Pulse Rate 126 H 11/12/24 12:34 Respiratory Rate 20 11/12/24 12:34 Blood Pressure 98/65 L 11/12/24 12:34 Pulse Oximetry 100 11/12/24 12:34 Oxygen Delivery Nasal Cannula 11/12/24 12:34 Oxygen Flow Rate 4 11/12/24 12:34 Medical Decision Making MDM Narrative Medical decision making narrative: -Course: 89-year-old female with metastatic cancer presenting for total body pain. On arrival patient cannot provide any meaningful info as she is in severe pain. Patient is toxic appearing. I reviewed the chart and patient metastatic cancer and significant medical comorbidities. I discussed her care with her daughter who states that the patient's quality of life is very poor. She is in constant pain. They do not think she would want aggressive measures to continue to prolong her life. Patient will be made for comfort measures only planning coordination care consult. Patient emergency department at 2:11 p.m. Vital Signs Vital Signs: Vital Signs Temperature 97 F L 11/12/24 12:34 Pulse Rate 126 H 11/12/24 12:34 Respiratory Rate 20 11/12/24 12:34 Blood Pressure 98/65 L 11/12/24 12:34 Pulse Oximetry 100 11/12/24 12:34 Oxygen Delivery Nasal Cannula 11/12/24 12:34 Oxygen Flow Rate 4 11/12/24 12:34 Temperature 97 F L 11/12/24 12:34 Pulse Rate 126 H 11/12/24 12:34 Respiratory Rate 20 11/12/24 12:34 Blood Pressure 98/65 L 11/12/24 12:34 Pulse Oximetry 100 11/12/24 12:34 Oxygen Delivery Nasal Cannula 11/12/24 12:34 Oxygen Flow Rate 4 11/12/24 12:34 Discharge Plan Discharge Clinical Impression: Cancer, Encounter for end of life care Patient Disposition: Condition: Patient Language: Colombian Prescriptions: No Action atorvastatin 80 mg tablet 80 mg PO DAILY lorazepam 0.5 mg tablet 0.5 mg PO TID albuterol sulfate 90 mcg/actuation HFA aerosol inhaler 90 mcg INHALATION BID PRN (Reason: shortness of breath or wheezing) losartan 50 mg tablet 50 mg PO DAILY meclizine 12.5 mg tablet 12.5 mg PO DAILY Eliquis 5 mg Tablet 5 mg PO Q12HR Qty: 30 0RF diltiazem HCl 120 mg capsule,extended release 24hr 120 mg PO Q24H ipratropium bromide 17 mcg/actuation HFA aerosol inhaler 1 puff inhalation QID PRN (Reason: shortness of breath or wheezing) insulin aspart U-100 [Novolog U-100 Insulin aspart] 100 unit/mL Solution 2 - 5 unit subcut TIDWM Qty: 10 0RF Protocol: Insulin Corrective Low-Dose Condition: glucose < 70 mg/dl Dose/Route: Follow Hypoglycemia Order Condition: glucose 70-200 mg/dl Dose/Route: No additional insulin Condition: glucose 201-250 mg/dl Dose/Route: 2 units sub-Q Condition: glucose 251-300 mg/dl Dose/Route: 3 units sub-Q Condition: glucose 301-350 mg/dl Dose/Route: 4 units sub-Q Condition: glucose 351-400 mg/dl Dose/Route: 5 units sub-Q Condition: glucose > 400 mg/dl Dose/Route: Call Protocol Text: *No Correction Dose at Bedtime* Rx Instructions: Condition Dose/Route Instruction glucose < 70 mg/dl Follow Hypoglycemia Order glucose 70-200 mg/dl No additional insulin glucose 201-250 mg/dl 2 units sub-Q glucose 251-300 mg/dl 3 units sub-Q glucose 301-350 mg/dl 4 units sub-Q glucose 351-400 mg/dl 5 units sub-Q glucose > 400 mg/dl Call insulin aspart U-100 [Novolog U-100 Insulin aspart] 100 unit/mL Solution 1 - 2 unit subcut HS Qty: 10 0RF Protocol: Insulin Corrective Low-Dose Condition: glucose < 70 mg/dl Dose/Route: Follow Hypoglycemia Order Condition: glucose 70-200 mg/dl Dose/Route: No additional insulin Condition: glucose 201-250 mg/dl Dose/Route: 1 units sub-Q Condition: glucose 251-300 mg/dl Dose/Route: 1 units sub-Q Condition: glucose 301-350 mg/dl Dose/Route: 2 units sub-Q Condition: glucose 351-400 mg/dl Dose/Route: 2 units sub-Q Condition: glucose > 400 mg/dl Dose/Route: Call MD Rx Instructions: Condition Dose/Route Instruction glucose < 70 mg/dl Follow Hypoglycemia Order glucose 70-200 mg/dl No additional insulin glucose 201-250 mg/dl 1 units sub-Q glucose 251-300 mg/dl 1 units sub-Q glucose 301-350 mg/dl 2 units sub-Q glucose 351-400 mg/dl 2 units sub-Q glucose > 400 mg/dl Call MD Follow-up/Referrals: Shant,Jose J Salinsa MD [Primary Care Provider] -
[2024-11-12 13:17] VITALS: BP 93/58; PULSE 128; RESP 13
[2024-11-12] MEDS: MORPHINE SULFATE (*CRX) 4 MG/ML INJ IV PUSH (13:20)
[2024-11-12] MEDS: LORazepam INJ (*CRX) 2 MG/ML VIAL IV PUSH (13:20)
[2024-11-12 13:44] VITALS: BP 36/22; PULSE 72; RESP 10
[2024-11-12 13:47] VITALS: BP 45/22; PULSE 78; RESP 18
[2024-11-12 14:09] VITALS: PULSE 0; RESP 17
--- OUTSIDE RECORDS SUMMARY | 2024-11-12 14:34 | XMS_ITS | Data Portability ---
Author Organization [place] - [facility] [employer], Main Office Address [address] [place] [address] Assessment No assessment recorded. Plan of Treatment Reminders Order Date Submit Date Provider Last Modified By Organization Details Last Modified Time Details Appointments None recorded . Lab cancer Ag 19-9, serum or plasma 024 12/05/19 24 [email or web address], [address] , [place], [address], 4 12:12:06 HbA1c (hemoglo bin A1c), blood 024 05/26/20 24 [facility], [address], [place], [address], 4 16:33:01 microalb umin/cre atinine, mass ratio, urine 024 05/26/20 24 [email or web address] [facility], [address], [place], [address], 4 16:33:02 CBC w/ auto diff 024 05/26/20 24 [facility], [address], [place], [address], 4 17:43:46 lipid panel, serum 024 05/26/20 24 [facility], [address] , [place], [address], 4 18:16:05 HbA1c (hemoglo bin A1c), blood 025 11/04/19 25 [email or web address] [facility], [address] , [place], [address], 10:10:59 Referral None recorded . Procedures None recorded . Surgeries None recorded . Imaging None recorded . Medication Orders None recorded . Patient TargetsNo targets recorded. Patient Instructions Encounter Date Encounter Id Patient Instructions Last Modified By Organization Details Last Modified Time 12/05/2023 [id number] Follow-up weir ry artery disease, hypertension, atrial fibrillation, abdominal mass, hyperlipidemia and type 2 diabetes all clinically stable. Will check blood work on next visit. Had blood work in the hospital recently. Will set up for a PET scan of the neck down to the abdomen. This is or pancreatic mass. Will set up with physical therapy to further evaluate for possible PT and may require MRI or further testing pending the results of the PET scan. Check back in four weeks Portions of the record may have been created with voice recognition software. Occasional wrong-word or [id number] substitutions may have occurred due to the inherent limitations of voice recognition software. Read the chart carefully and recognize, using context, where substitutions have occurred. PET scan the abdomen neck down to the pelvis for pancreatic mass Not available 12/05/2023 12:02:54 01/16/2024 [id number] Coronary artery disease, hypertension, atrial fibrillation, hyperlipidemia, type 2 diabetes, abdominal pancreatic mass and chronic respiratory failure. Definitely is in need of some form of more portable oxygen tank for taking the patient to and from different locations and possible further diagnostic testing. Also need to be set up for a PET scan of the abdomen and pelvis from the neck on down. For evaluation of the pancreatic mass. No other additional blood work is needed this time. Will follow-up in six weeks Needs a portable oxygen tank for transportation purposes. Needs be set up for a PET-CT scan from the base of the skull on down. Schedule Next Appointment: 6 Weeks Approximate Date: 02/27/2024 Portions of the record may have been created with voice recognition software. Occasional wrong-word or [id number] substitutions may have occurred due to the inherent limitations of voice recognition software. Read the chart carefully and recognize, using context, where substitutions have occurred. [email or web address] Not available 01/16/2024 16:39:24 04/24/2024 [id number] pain medication information [email or web address] Not available 04/24/2024 16:08:24 inhaler education [email or web address] Not availabl e 04/24/2024 16:08:24 coping with stre ss education Not available 04/24/2024 16:08:24 coping with your emotions when you have cancer: care instructions [email or web address] Not available 04/24/2024 16:08:25 05/26/2024 [id number] Follow-up for coronary artery disease, essential hypertension, hyperlipidemia, type 2 diabetes, malignant tumor of the pancreas as well as obesity class two. All clinically stable. Will continue on current Rx at this time. Check blood work consisting of a CBC, CMP, lipid, hemoglobin A1c and microalbumin. Continue on current Rx follow-up in four months Next Appointment: 4 Months Approximate Date: 09/23/2024 Portions of the record may have been created with voice recognition software. Occasional wrong-word or bpvrj-l-oxan substitutions may have occurred due to the inherent limitations of voice recognition software. Read the chart carefully and recognize, using context, where substitutions have occurred. [email or web address] Not available 05/26/2024 15:35:54 11/04/2024 [id number] Follow-up weir ry artery disease, hyperlipidemia, paroxysmal atrial fibrillation and malignant neoplasm of the pancreas. Plan to check a hemoglobin A1c level. Pending those results consider increasing her glimepiride or adding other oral medications to help control her diabetes. Follow-up in two months Follow Up: 2 Months Approximate Date: 01/03/2025 Portions of record are template driven. When necessary additional context will be provided. Additionally some portions have been created with voice recognition software. Occasional wrong-word or [id number] substitutions may have occurred due to the inherent limitations of voice recognition software. Read the chart carefully and recognize, using context, where substitutions may have occurred. Created: Jose J Bran M.D. 11.04.2024 03:22 PM [email or web address] Not available 11/04/2024 16:22:55 Reason for Referral None Reported. Results Created Date Observation Date Name Description Value Unit Range Abnormal Flag Note LastModifiedBy Organization Detail LastModifiedTime 12/05/19 24 12/06/2023 CA 19-9 Ca 19-9 23 U/mL 0-35 [facility] Elect anuradha milum inesc ence Immun oassa y (ECLI A) . Value s obtai checo with diffe rent assay metho ds or kits canno t be used inter gilliam eably . Resul ts canno t be inter prete d as absol teller evide nce of the prese nce or absen ce of joshua nelson se. Perfo rmed at: - [facility] [address] [facility], [place] [address] Lab Direc tor: Mariano jameson PhD, Phone : [phone] Not Available [facility] (Lab) [address] [place], [address], 12/06/2023 12:12:06 05/26/2005/26/2024 CBC/C OMPLE TE BLD COUNT W/DIF F white blood cells 7.2 x10'3 /uL 4.2-10 .8 Not Available [facility] (Lab) [address] [place], [address], 05/26/2024 17:43:46 05/26/20 24 05/26/2024 CBC/C OMPLE TE BLD COUNT W/DIF F red blood cells 3.80 x10'6 /uL 3.80-5 .20 Not Available [facility] (Lab) [address] [place], [address], 05/26/2024 17:43:46 05/26/20 24 05/26/2024 CBC/C OMPLE TE BLD COUNT W/DIF F hemoglobin 11.7 g/dL 12.0-1 5.6 low Not Available [facility] (Lab) [address] [place], [address], 05/26/2024 17:43:46 05/26/20 24 05/26/2024 CBC/C OMPLE TE BLD COUNT W/DIF F hematocrit 36.6 % 35.7-4 5.7 Not Available [facility] (Lab) [address] [place], [address], 05/26/2024 17:43:46 05/26/20 24 05/26/2024 CBC/C OMPLE TE BLD COUNT W/DIF F mean red cell volume 96.3 fL 82.0-9 9.0 Not Available [facility] (Lab) [address] [place], [address], 05/26/2024 17:43:46 05/26/20 24 05/26/2024 CBC/C OMPLE TE BLD COUNT W/DIF F mean red cell hemoglobin 30.8 pg 27.0-3 3.0 Not Available [facility] (Lab) [address] [place], [address], 05/26/2024 17:43:46 05/26/20 24 05/26/2024 CBC/C OMPLE TE BLD COUNT W/DIF F mean RBC HGB concentratio n 32.0 g/dL 31.0-3 6.0 Not Available [facility] (Lab) [address] [place], [address], 05/26/2024 17:43:46 05/26/20 24 05/26/2024 CBC/C OMPLE TE BLD COUNT W/DIF F red cell distribution width 13.7 % 11.8-1 5.5 Not Available [facility] (Lab) [address] [place], [address], 05/26/2024 17:43:46 05/26/20 24 05/26/2024 CBC/C OMPLE TE BLD COUNT W/DIF F platelets 205 x10'3 /uL 150-40 0 Not Available [facility] (Lab) [address] [place], [address], 05/26/2024 17:43:46 05/26/20 24 05/26/2024 CBC/C OMPLE TE BLD COUNT W/DIF F mean platelet volume 10.5 fL 9.0-12 .4 Not Available [facility] (Lab) [address] [place], [address], 05/26/2024 17:43:46 05/26/20 24 05/26/2024 CBC/C OMPLE TE BLD COUNT W/DIF F neutrophils 42.5 % 39.0-7 2.0 Not Available [facility] (Lab) [address] [place], [address], 05/26/2024 17:43:46 05/26/20 24 05/26/2024 CBC/C OMPLE TE BLD COUNT W/DIF F lymphocytes 39.6 % 16.0-4 7.0 Not Available [facility] (Lab) [address] [place], [address], 05/26/2024 17:43:46 05/26/20 24 05/26/2024 CBC/C OMPLE TE BLD COUNT W/DIF F monocytes 13.6 % 5.0-12 .0 high Not Available [facility] (Lab) [address] [place], [address], 05/26/2024 17:43:46 05/26/20 24 05/26/2024 CBC/C OMPLE TE BLD COUNT W/DIF F eosinophils 3.1 % 1.0-7. 0 Not Available [facility] (Lab) [address] [place], [address], 05/26/2024 17:43:46 05/26/20 24 05/26/2024 CBC/C OMPLE TE BLD COUNT W/DIF F basophils 0.8 % 0.0-2. 0 Not Available [facility] (Lab) [address] [place], [address], 05/26/2024 17:43:46 05/26/20 24 05/26/2024 CBC/C OMPLE TE BLD COUNT W/DIF F immature granulocytes 0.4 % 0.00-0 .50 Not Available [facility] (Lab) [address] [place], [address], 05/26/2024 17:43:46 05/26/20 24 05/26/2024 CBC/C OMPLE TE BLD COUNT W/DIF F neutrophils, absolute count 3.05 x10'3 /uL 1.5-8. 0 Not Available [facility] (Lab) [address] [place], [address], 05/26/2024 17:43:46 05/26/20 24 05/26/2024 CBC/C OMPLE TE BLD COUNT W/DIF F lymphocytes, absolute count 2.85 x10'3 /uL 1.07-3 .43 Not Available [facility] (Lab) [address] [place], [address], 05/26/2024 17:43:46 05/26/20 24 05/26/2024 CBC/C OMPLE TE BLD COUNT W/DIF F monocytes, absolute count 0.98 x10'3 /uL 0.29-0 .99 Not Available [facility] (Lab) [address] [place], [address], 05/26/2024 17:43:46 05/26/20 24 05/26/2024 CBC/C OMPLE TE BLD COUNT W/DIF F eosinophils, absolute count 0.22 x10'3 /uL 0.02-0 .53 Not Available [facility] (Lab) [address] [place], [address], 05/26/2024 17:43:46 05/26/20 24 05/26/2024 CBC/C OMPLE TE BLD COUNT W/DIF F basophils, absolute count 0.06 x10'3 /uL 0.01-0 .08 Not Available [facility] (Lab) [address] [place], [address], 05/26/2024 17:43:46 05/26/20 24 05/26/2024 CBC/C OMPLE TE BLD COUNT W/DIF F immature granulocytes ,absolute 0.03 x10'3 /uL 0.00-0 .05 Not Available [facility] (Lab) [address] [place], [address], 05/26/2024 17:43:46 05/26/20 24 05/26/2024 CBC/C OMPLE TE BLD COUNT W/DIF F nucleated red blood cells 0.0 % -0 Not Available [facility] (Lab) [address] [place], [address], 05/26/2024 17:43:46 05/26/20 24 05/26/2024 CBC/C OMPLE TE BLD COUNT W/DIF F NRBC# 0.00 x10'3 /uL Not Available [facility] (Lab) [address] [place], [address], 05/26/2024 17:43:46 05/26/20 24 05/26/2024 MICRO ALBUM N RNDM W/CRE AT RATIO ur creat 61.10 mg/dL REFER ENCE RANGE NOT ESTAB LISHE D FOR RANDO M URINE CREAT ININE Not Available [facility] (Lab) [address] [place], [address], 05/26/2024 18:15:03 05/26/20 24 05/26/2024 MICRO ALBUM N RNDM W/CRE AT RATIO microalbumin , urine 6.3 mg/L 0.0-16 .6 Not Available [facility] (Lab) [address] [place], [address], 05/26/2024 18:15:03 05/26/20 24 05/26/2024 MICRO ALBUM N RNDM W/CRE AT RATIO microalbumin /creatinine ratio 10 mcg/m g 0-29 THE AMERI CAN DIABE [facility]OR[facility] ASSOC IATIO N DEFIN ES ABNOR MALIT IES IN ALBUM IN EXCRE TION FOLLO WS: CATEG ORY RESUL T (MCG/ MG CREAT ININE ) ANTONIO L <30 MICRO ALBUM INURI A 30-29 9 CLINI HSOAIB ALBUM INURI A > OR = 300 THE ADA RECOM MENDS THAT 2 OF 2 SPECI MENS COLLE CTED WITHI N A 3- TO 6-MON TH PERIO D BE ABNOR MAL BEFOR E CONSI JACE G A PATIE NT TO HAVE CROSS ED ONE OF THESE DIAGN OSTIC THRES HOLDS . REFER ENCE: DIABE FLORINA CARE, VOL. 26: S94-S 96, 2002 Not Available [facility] (Lab) [address] [place], [address], 05/26/2024 18:15:03 05/26/20 24 05/26/2024 LIPID PANEL cholesterol 173 mg/dL 140-19 9 NIH MOOKIE NSUS RECOM MENDA TION FOR ARIA STERO L: ADULT CHILD LOW RISK: <200 <170 BORDE RLINE : <200- 239 ----- HIGH RISK: >240 >200 Not Available [facility] (Lab) [address] [place], [address], 05/26/2024 18:16:05 05/26/2005/26/2024 LIPID PANEL triglyceride s 215 mg/dL 0-150 high NIH MOOKIE NSUS REPOR T RECOM MENDA TION FOR TRIGL YCERI BEVERLY: ADULT CHILD LOW RISK: <150 ----- BODER LINE: 150-1 99 ----- HIGH RISK: >200 ----- Not Available [facility] (Lab) [address] [place], [address], 05/26/2024 18:16:05 05/26/20 24 05/26/2024 LIPID PANEL HDL cholesterol 43 mg/dL 40- Not Available [facility] (Lab) [address] [place], [address], 05/26/2024 18:16:05 05/26/20 24 05/26/2024 LIPID PANEL LDL cholesterol, calculated 87 mg/dL 0-130 NIH MOOKIE NSUS REPOR T RECOM MENDA TIONS FOR LDL: ADULT CHILD LOW RISK <130 <110 (OPTI MAL LDL) <100 ----- BORDE RLINE : 130-1 59 ----- HIGH RISK: >160 >130 A TRIGL YCERI DE RESUL T >400 INVAL IDATE S THE CALCU LATIO N FOR LDL FRACT IONAT ION - THE LDL RESUL T WILL NOT BE REPOR ARIANNA. Not Available [facility] (Lab) [address] [place], [address], 05/26/2024 18:16:05 05/26/20 24 05/26/2024 HEMOG LOBIN A1C HA1C 6.7 % 4.0-6. 0 high Diabe florina Scree heber Crite toni: <5.7% Consi stent with absen ce of diabe florina 5.7-6 .4% Consi stent with incre ased risk for diabe florina (pred iabet es) >OR=6 .5% Consi stent with diabe florina REFER ENCE: Diabe florina Care 2016, 39(Avila ppl.1 ):s13 -s22 Not Available [facility] (Lab) [address] [place], [address], 05/26/2024 20:13:09 01/24/20 24 01/24/2024 PET-C T, skull base to mid-t high scan No observ ation record ed. [address], [address], 01/24/2024 17:34:48 01/25/20 24 01/24/2024 PET-C T, skull base to mid-t high scan No observ ation record ed. [address], [address], 01/25/2024 09:46:50 Result Notes None recorded. 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 6045508509125 9108 Active 2017 Not Available [facility] 3 14:47:56 Hyperchole sterolemia 78540523 Active Not Available [facility] 3 14:47:56 Abdominal pain 94972327 Active 2021 Not Available [facility] 3 14:47:56 Gastroesop hageal reflux disease 968929974 Active 2017 Not Available [facility] 3 14:47:56 History of cerebrovas cular accident 381569267 Active Not Available [facility] 3 14:47:56 Acute pharyngiti s 926500554 Active 2021 Not Available [facility] 3 14:47:56 Osteoarthr itis 300232159 Active Not Available [facility] 3 14:47:56 Vertigo 704431428 Active 2021 Not Available [facility] 3 14:47:56 Polyneurop athy 31286309 Active Not Available [facility] 3 14:47:56 Acute urinary tract infection 318971355 Active 2022 Not Available [facility] 3 14:47:56 Type 2 diabetes mellitus 91001616 Active Not Available [facility] 3 14:47:56 Hemicrania continua 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 2017 Not Available [facility] 3 14:47:56 Atrial fibrillati on 22916411 Active 2018 Not Available [facility] 3 14:47:56 Pain of breast 09503677 Active 2021 Not Available [facility] 3 14:47:57 Coronary arterioscl erosis 28716970 Active Not Available [facility] 3 14:47:57 Essential hypertensi on 63889323 Active Not Available [facility] 3 14:47:57 Loose body in knee 76822547 Active Not Available [facility] 3 14:47:57 Anxiety 54476586 Active 2022 Genesis Ferrera CMA null, [facility] [employer] [facility] 3 14:46:42 Transient cerebral ischemia 054484391 Active 2022 Jose J Bran MD [address] [place] [address], [address] [place] [address], [place], [address] , [place] [facility] 3 11:16:37 Headache 74424694 Active 2022 Jose J Bran MD [address], [place], [address] , [facility] 3 11:15:03 Irritable bowel syndrome with diarrhea 202303841 Active 2022 Jose J Bran MD [address], [place], [address] , [facility] [employer] [facility] 3 11:35:49 Abdominal mass 752689292 Active 2023 Jose J Bran MD [address], [place], [address] , [facility] [employer] [facility] 4 11:56:19 Cerebrovas cular accident 637876298 Active 2023 Kristine avina, [facility] [employer] [facility] 4 16:39:46 Chronic respirator y failure 06814533 Active 2023 Jose J Bran MD [address], [place], [address] , [facility] [employer] [facility] 4 16:31:18 Imaging of abdomen abnormal 635827908 Active 2023 Kristine avina, [facility] [employer] [facility] 4 13:12:19 Malignant tumor of pancreas 144054283 Active 2023 Jose J Bran MD [address], [place], [address] , [facility] [employer] [facility] 4 15:30:16 Obese class II 2805488788704 05 Active 2023 Jose J Bran MD [address], [place], [address] , [facility] [employer] [facility] 4 15:31:08 Problem Notes None recorded. Procedures Surgical History Date Name Laterality Status Provider Name and Address Organization Details Recorded Time 4 Chronic care management services completed Darlin Eckert RN [facility] [employer] [facility] 04/24/2024 15:55:06 3 Medicare Wellness CPT Code, subsequent completed Eugenie Penaloza RN [place] [employer] [facility] 12/27/2022 11:09:25 Imaging Results Imaging Date Name Status LastModified by Organiz ation Details LastModified Time 01/24/2024 PET-CT, skull base to mid-thigh scan completed [place] [address] [facility] [address], [place], [address], 01/24/2024 17:34:48 01/24/2024 PET-CT, skull base to mid-thigh scan completed [address] [facility] [address], [place], [address], 01/25/2024 09:46:50 Procedure Notes None recorded. Medical Equipment None Reported. Allergies Allergen ID Allergen Name Allergen Category Reaction Reaction Severity Criticality Documentation Date Start Date Code Code System Note Provider Name and Address Organization Details Recorded Time 60783 codeine medicatio n nausea Not available Not available 12/06/2022 2670 RxNorm Not Available [facility] 14:51:02 Medications Name Sig Start Date Stop Date Status Note LastModified by Organization Details LastModified Time losartan 50 mg tablet TAKE 1 TABLET BY MOUTH EVERY DAY active Not Available Not Available No t Available Zocor 20 mg tablet Take 1 tablet every day by oral route. 10/25 completed Not Available Not Available Not Available amoxicillin 500 mg capsule TAKE 1 CAPSULE BY MOUTH THREE TIMES A DAY FOR 5 DAYS 12/27 completed Not Available Not Available Not Available metformin 500 mg tablet Take 1 tablet twice a day by oral route. 04/24 completed Not Available Not Available Not Available atorvastati n 80 mg tablet TAKE 1 TABLET EVERY DAY active Not Available Not Available No t Available naproxen 375 mg tablet Take 1 tablet twice a day by oral route. 10/25 completed Not Available Not Available Not Available Topamax 25 mg tablet Take 1 tablet every day by oral route in the evening. 11/27 completed Not Available Not Available Not Available benzonatate 200 mg capsule Take 1 capsule 3 times a day by oral route. 02/26 completed Not Available Not Available Not Available valacyclovi r 1 gram tablet TAKE 1 TABLET BY MOUTH THREE TIMES A DAY 12/19 completed Not Available Not Available Not Available hydrocodone 5 mg-acetamin ophen 325 mg tablet TAKE 1 TABLET BY MOUTH EVERY 6 HOURS NEEDED FOR MODERATE PAIN MAX 4 PER DAY active Not Available Not Available No t Available isosorbide mononitrate ER 30 mg tablet,exte nded release 24 hr ONCE DAILY active Not Available Not Available No t Available Accu-Chek Softclix Lancets TEST BLOOD SUGAR EVERY MORNING active Not Available Not Available No t Available meclizine 12.5 mg tablet TAKE 1 TABLET THREE TIMES DAILY active Not Available Not Available No t Available tramadol 50 mg tablet TAKE 1 TABLET BY MOUTH EVERY 6 HOURS NEEDED FOR PAIN. 11/04 completed Not Available Not Available Not Available triamcinolo ne acetonide 0.1 % topical cream APPLY A THIN LAYER TO THE AFFTECTED AREA(S) TOPICALLY TWO TIMES A DAY 11/04 completed Not Available Not Available Not Available glimepiride 2 mg tablet TAKE 1 TABLET EVERY DAY active Not Available Not Available No t Available ondansetron 8 mg disintegrat ing tablet PLEASE SEE ATTACHED FOR DETAILED DIRECTION S active Not Available Not Available No t Available isosorbide dinitrate 30 mg tablet ONCE DAILY 10/25 completed Not Available Not Available Not Available Zofran 4 mg tablet Take 1 tablet 4 times a day by oral route. 10/25 completed Not Available Not Available Not Available lorazepam 0.5 mg tablet Take 1 tablet 3 times a day by oral route as needed. 2024 active Not Available Not Available Not Avai lable cephalexin 500 mg capsule TAKE 1 CAPSULE BY MOUTH EVERY 12 HOURS 11/15 completed Not Available Not Available Not Available cyanocobala min (vit B-12) 1,000 mcg/mL injection solution Inject 1 mL every week by subcutane ous route. 08/16 completed [facility]# [id number] [phone] Not Available Not Available Not Available Cipro 500 mg tablet Take 1 tablet twice a day by oral route for 7 days. 12/27 completed Not Available Not Available Not Available lisinopril 10 mg tablet Take 1 tablet every day by oral route. 05/06 completed Not Available Not Available Not Available lidocaine 5 % topical patch 11/04 completed Not Available Not Available Not Available indomethaci n 25 mg capsule Take 1 capsule twice a day by oral route. 11/27 completed Not Available Not Available Not Available gabapentin 300 mg capsule TAKE 1 CAPSULE BY MOUTH THREE TIMES A DAY 11/04 completed Not Available Not Available Not Available omeprazole 20 mg capsule,del ayed release TAKE 1 CAPSULE EVERY DAY 04/24 completed Not Available Not Available Not Available diltiazem CD 120 mg capsule,ext ended release 24 hr TAKE 1 CAPSULE BY MOUTH EVERY DAY active Not Available Not Available No t Available Q-Tussin DM 10 mg-100 mg/5 mL oral syrup Take 10 mL every 4 hours by oral route. 04/20 completed Not Available Not Available Not Available Levaquin 500 mg tablet Take 1 tablet every 24 hours by oral route. 08/02 completed Not Available Not Available Not Available gabapentin 100 mg capsule one three times a day active Not Available Not Available No t Available Novolog U-100 Insulin aspart 100 unit/mL subcutaneou s solution PLEASE SEE ATTACHED FOR DETAILED DIRECTION S active Not Available Not Available No t Available Enteric Coated Aspirin 81 mg tablet,elieser yed release Take 1 tablet every day by oral route. 11/27 completed Not Available Not Available Not Available albuterol sulfate HFA 90 mcg/actuati on aerosol inhaler INHALE 1 PUFF FOUR TIMES A DAY NEEDED FOR SHORTNESS OF BREATH OR WHEEZING 11/04 completed Not Available Not Available Not Available Vitamin D2 1,250 mcg (50,000 unit) capsule Take 1 capsule every week by oral route. 12/27 completed Not Available Not Available Not Available celecoxib 100 mg capsule TAKE 1 CAPSULE BY MOUTH EVERY 12 HOURS FOR 1 WEEK FOR PAIN. TAKE WITH FOOD 04/06 completed Not Available Not Available Not Available dicyclomine 10 mg capsule TAKE 1 CAPSULE BY MOUTH THREE TIMES A DAY BEFORE MEALS 2023 active Not Available Not Available Not Avai lable naproxen 500 mg tablet 12/19 completed Not Available Not Available Not Available amoxicillin 875 mg-potassiu m clavulanate 125 mg tablet 01/15 completed Not Available Not Available Not Available Vasotec 2.5 mg tablet Take 1 tablet every day by oral route. 02/26 completed Not Available Not Available Not Available Cymbalta 30 mg capsule,del ayed release ONCE DAILY 10/25 completed Not Available Not Available Not Available Atrovent HFA 17 mcg/actuati on aerosol inhaler INHALE 1 PUFF BY MOUTH FOUR TIMES A DAY 11/04 completed Not Available Not Available Not Available Dulera 100 mcg-5 mcg/actuati on HFA aerosol inhaler Inhale 2 puffs twice a day by inhalatio n route. 11/27 completed Not Available Not Available Not Available Accu-Chek Soft Dev Lancets use to test blood sugar every monring 2021 active Not Available Not Available Not Avai lable Eliquis 5 mg tablet TAKE 1 TABLET BY MOUTH TWICE A DAY active Not Available Not Available No t Available Accu-Chek Guide test strips TEST BLOOD SUGAR EVERY MORNING active Not Available Not Available No t Available Accu-Chek Guide Glucose Meter Use to check blood sugar every morning before breakfast active Not Available Not Available No t Available Accu-Chek Guide L1-L2 Control Solution active Not Available Not Available Not Available Vitals Date Recorded Body height Body mass index (BMI) Body weight Heart rate Body temperature Oxygen saturation Oxygen saturation in Arterial blood by Pulse oximetry Systolic blood pressure Diastolic blood pressure Provider Name and Address Organization Details Last Updated DateTime 4 152.4 cm 32.6 kg/m2 65626.9 3 g 83 /min 97.4 [degF] 98 % 98 % 130 mm[Hg] 80 mm[Hg] JOSEF Hall [facility] [employer] [facility] 4 11:49:24 Date Recorded Body height Body mass index (BMI) Body weight Heart rate Body temperature Systolic blood pressure Diastolic blood pressure Provider Name and Address Organization Details Last Updated DateTime 4 152.4 cm 34.4 kg/m2 93384.2 6 g 77 /min 97 [degF] 122 mm[Hg] 72 mm[Hg] Brigette Pimentel [facility] [employer] [facility] 4 16:14:00 Date Recorded Oxygen saturation Oxygen saturation in Arterial blood by Pulse oximetry Inhaled oxygen flow rate Provider Name and Address Organization Details Last Updated DateTime 01/16/2024 90 % 90 % 3 L/min Jose J Bran MD [address], [facility] [address], [place], [address], [facility] [employer] [facility] 01/16/2024 16:33:13 Date Recorded Body height Provider Name an d Address Organization Details Last Updated DateTime 04/24/2024 152.4 cm Darlin Eckert RN [facility] [employer] [facility] 04/24/2024 15:26:09 Date Recorded Body height Body mass index (BMI) Body weight Heart rate Body temperature Oxygen saturation Oxygen saturation in Arterial blood by Pulse oximetry Inhaled oxygen flow rate Systolic blood pressure Diastolic blood pressure Provider Name and Address Organization Details Last Updated DateTime 4 152.4 cm 35.2 kg/m2 42806.6 3 g 87 /min 97.4 [degF] 98 % 98 % 3 L/min 120 mm[Hg] 70 mm[Hg] JOSEF Hall [facility] [employer] [facility] 15:05:53 Date Recorded Body height Body mass index (BMI) Body weight Heart rate Body temperature Oxygen saturation Oxygen saturation in Arterial blood by Pulse oximetry Systolic blood pressure Diastolic blood pressure Provider Name and Address Organization Details Last Updated DateTime 5 152.4 cm 32.4 kg/m2 52396.3 3 g 56 /min 97 [degF] 98 % 98 % 122 mm[Hg] 70 mm[Hg] Brigette Pimentel [facility] [employer] [facility] 5 15:58:17 Social History Question Answer Notes LastModified by Organization Details LastModified Time Tobacco Smoking Status Never Smoker Not Available [facility] 12/06/2022 14:45:05 Do You Have An Advance Directive? No [id number] Information not available 12/06/2022 What Is Your Level Of Alcohol Consumption? None MIGRATION.030 [id number] Information not available 12/06/2022 Are You Blind Or Do You Have Difficulty Seeing? No MIGRATION.030 [id number] Information not available 12/06/2022 In The 14 Days Before Symptom Onset, Have You Had Close Contact With A Laboratory-confi rmed COVID-19 While That Case Was Ill? No MIGRATION.030 [id number] Information not available 12/06/2022 In The 14 Days Before Symptom Onset, Have You Had Close Contact With A Person Who Is Under Investigation For COVID-19 While That Person Was Ill? No [id number] Information not available 12/06/2022 Are You Currently Employed? No [email or web address] Information not available 04/24/2024 Are You Deaf Or Do You Have Serious Difficulty Hearing? Yes Has Hearing Aid MIGRATION.[id number] [id number] Information not available 12/06/2022 What Type Of Diet Are You Following? REGULAR MIGRATION.0301 [id number] Information not available 12/06/2022 Have There Been Any Changes To Your Family Or Social Situation? No [email or web address] Information not available 12/27/2022 What Is The Fluoride Status Of Your Home? Unknown [email or web address] Information not available 12/27/2022 Are There Any Guns Present In Your Home? No MIGRATION.0301 [id number] Information not available 12/06/2022 Do You Use Insect Repellent Routinely? No MIGRATION.0301 [id number] Information not available 12/06/2022 [facility] MIGRATION.0301 [id number] Information not available 12/06/2022 Do You Have A Medical Power Of Trimmer Machine? No MIGRATION.0301 [id number] Information not available 12/06/2022 What Was The Date Of Your Most Recent Tobacco Screening? 12/27/2022 [email or web address] Information not available 12/27/2022 Do You Have Any Pets? Yes [email or web address] Information not available 12/27/2022 Do You Use Your Seat Belt Or Car Seat Routinely? Yes MIGRATION.0301 [id number] Information not available 12/06/2022 Do You Have Smoke And Carbon Monoxide Detectors In Your Home? Yes MIGRATION.0301 [id number] Information not available 12/06/2022 Are You Passively Exposed To Smoke? No MIGRATION.0301 [id number] Information not available 12/06/2022 Are There Any Smokers In Your House? No [email or web address] Information not available 12/27/2022 Do You Feel Stressed (tense, Restless, Nervous, Or Anxious, Or Unable To Sleep At Night)? [id number] MIGRATION.0301 [id number] Information not available 12/06/2022 Do You Use Sunscreen Routinely? No MIGRATION.0301 091403 Information not available 12/06/2022 Have You Recently Traveled Abroad? No MIGRATION.0301 [id number] Information not available 12/06/2022 Do You Have Any Dietary Restrictions? No MIGRATION.0301 [id number] Information not available 12/06/2022 Sex: Unknown Functional Status Question Answer Note LastModified by Organizat ion Details LastModified Time Do you have difficulty walking or climbing stairs? Yes MIGRATION.[id number] Information not available 12/06/2022 Do you have transportation difficulties? Yes daughter's car broke down [email or web address] Information not available 04/24/2024 Are you able to walk? NODEP Information not available 04/24/2024 Do you have difficulty doing errands alone? Yes [email or web address] Information not available 04/24/2024 Are you able to care for yourself? No [email or web address] Information n ot available 04/24/2024 Do you have difficulty dressing or bathing? Yes [email or web address] Information not available 04/24/2024 What is your exercise level? None MIGRATION.[id number] [id number] Information not available 12/06/2022 Mental Status Question Answer Note LastModified by Organizat ion Details LastModified Time Do you have difficulty concentrating, remembering or making decisions? Yes [id number] Information not available 12/06/2022 Family History Nothing Reported Notes:Mother 96 from DM and CAD Father 87 from CAD 4 sisters on living with CA breast. One of CA breast and one from dementia 3 brothers. One living and two of some form cancer. Medical History Condition Response BLINDNESS N NERVE DISEASE N RHEUMATIC FEVER N BLADDER PROBLEMS N KIDNEY STONES N MRSA N OTHER # 1 N POLIO N LUNG DISEASE/DISORDER N RADIATION / CHEMOTHERAPY N COPD N Other # 2 N BLOOD DISEASES N SURGERY N EAR OR HEARING PROBLEMS N MUMPS N DEPRESSION (INCLUDING POST ) N BOWEL PROBLEMS N STROKE/TIA Y ULCERS N BENIGN PROSTATIC HYPERPLASIA N MEASLES N MYOCARDIAL INFARCTION N OBESITY N GERD/NAUSEA N ANEURYSM N URINARY/BLADDER/KIDNEY PROBLEMS N CORONARY ARTERY DISEASE (CAD) Y ADDICTION CONCERNS N Impotence N ENDOMETRIOSIS N USE OF BLOOD THINNERS N SKIN PROBLEMS N GASTROINTESTINAL DISORDER N PERIPHERAL VASCULAR DISEASE N MUSCLE,JOINT OR BONE PROBLEMS N GASTROINTESTINAL BLEEDING N BLOOD CLOTS N ASTHMA N CATARACTS N ERECTILE DYSFUNCTION N VARICOSITIES N GI PROBLEMS N Low Testosterone N INFERTILITY N AIDS/HIV N CHEMOTHERAPY / RADIATION N LIVER DISEASE N MALE HYPOGONADISM N HYPERTENSION Y Deficiency N ANXIETY DISORDER N BLOOD TRANSFUSION N ANEMIA/BLOOD DISORDER N CHRONIC EAR INFECTIONS N BRONCHITIS N TUBERCULOSIS N GLAUCOMA N FOOT PROBLEM N DIVERTICULITIS N SLEEP APNEA N CHICKENPOX N INFECTIOUS DISEASE N PROSTATE N HEART ARRHYTHMIA N INSOMNIA N HIGH CHOLESTEROL / HYPERLIPIDEMIA Y HYPERTHYROIDISM N EYE PROBLEMS N NEUROLOGICAL PROBLEMS N EDEMA N CHRONIC PAIN SYNDROME N HYPOTHYROIDISM N CONSTIPATION N CAROTID BLOCKAGE N BACK / NECK PROBLEMS N HAVE YOU BEEN HOSPITALIZED OR SEEN IN [facility] ER IN THE PAST YEAR ? N ATHEROSCLEROSIS N BREAST PROBLEMS N DIALYSIS N ECZEMA N OSTEOPOROSIS N ARTHRITIS N NO SIGNIFICANT PAST MEDICAL HISTORY N APPENDICITIS N DIABETES, TYPE N BAD TEETH N ENT N HEARTBURN / REFLUX N AUTISM SPECTRUM DISORDER (ASD) N HEPATITIS / LIVER DISEASE N GOUT N SLEEP DISORDER N ALZHEIMER'S DISEASE N Brain Problems N HERPES N DEMENTIA N SEIZURES/EPILEPSY N HEADACHES/MIGRAINES N VASCULAR DISEASE N PACEMAKER N Blood Disorder N DIZZINESS N KIDNEY DISEASE N HEART DISEASE/HEART PROBLEMS N MULTIPLE SCLEROSIS N CARDIAC ARRHYTHMIA N CANCER: SPECIFY N Gall Stones N ATRIAL FIBRILLATION Y PULMONARY EMBOLISM N AUTOIMMUNE DISEASE N Gynecological HistoryNo gynecological history recorded. Obstetrics History GPAL:G 0 P 0 0 0 0 Immunizations Vaccine Type Date Status Note Provider Nam e and Address Organization Details Recorded Time Influenza, high-dose, quadrivalent, PF 3 completed Jose J Bran MD [address] [facility], [facility] [address], [place], [address], [place] [employer] 08/06/2023 11:44:47 Influenza, split virus, trivalent, preservative 4 completed Not Available [facility] 12/06/2022 14:50:50 Influenza, high-dose, quadrivalent, PF 1 completed Not Available [facility] 12/06/2022 14:50:51 Influenza, high-dose, quadrivalent, PF 2 completed Not Available [facility] 12/06/2022 14:50:51 Influenza, high-dose, quadrivalent, PF 0 completed Not Available [facility] 12/06/2022 14:50:51 Influenza, high-dose, trivalent, PF 6 completed Not Available [facility] 12/06/2022 14:50:51 Influenza, high-dose, trivalent, PF 7 completed Not Available [facility] 12/06/2022 14:50:51 Influenza, split virus, quadrivalent, preservative 5 completed Not Available [facility] 12/06/2022 14:50:51 Past Encounters Encounter ID Performer Location Encounter Start Date Encounter Closed Date Diagnosis/Indication Diagnosis SNOMED-CT Code Diagnosis ICD10 Code Diagnosis Note [id number] [facility] [address] Peña [address] [address] 06/16/2021 00:00:00 06/16/2021 12:42:19 [id number] [facility] [address] Peña [address] [address] 08/01/2021 00:00:00 08/01/2021 11:18:49 [id number] [facility] [address] [address] 12/19/2021 00:00:00 12/19/2021 16:37:27 [id number] [facility] [address] [address] 03/01/2022 00:00:00 03/01/2022 11:23:11 [id number] [facility] [address] [address] 2022 00:00:00 2022 11:02:01 [id number] [facility] [address] [address] 07/05/2022 00:00:00 07/05/2022 12:11:45 [id number] [facility] [address] Peña [address] [address] 08/02/2022 00:00:00 08/02/2022 11:52:12 [id number] [facility] [address] [address] 09/28/2022 00:00:00 09/28/2022 11:52:45 [id number] [facility] [address] [address] 11/15/2022 00:00:00 11/15/2022 11:38:32 [id number] Jose J Bran MD [facility] Internal Med [facility] [address] [address] 12/27/2022 10:38:02 12/27/2022 11:37:22 Adult health examination 171854814 Z00.00 Screening for disorder 826086894 Z13.9 Coronary arteriosclerosis 37677495 I25.10 Essential hypertension 50146556 I10 Hypercholesterolemia 136 84210 E78.00 Type 2 tato betes mellitus 36631629 E11.9 Transient cerebral ischemia 073029207 G45.9 [id number] Jose J Bran MD [facility] Internal Med [facility] [address] [address] 01/25/2023 10:39:58 01/25/2023 11:27:13 Headache 99139190 R51.9 Atrial fibrillation 4943 6004 I48.91 Essential hypertension 76536339 I10 Hypercholesterolemia 136 18065 E78.00 Type 2 tato betes mellitus 72493486 E11.9 Obese class I 6831535462 40663 E66.9 [id number] Jose J Bran MD [facility] Internal Med [facility] [address] [address] 04/05/2023 10:48:50 04/05/2023 17:24:19 Essential hypertension 05453075 I10 Type 2 tato betes mellitus 68519098 E11.9 Hypercholesterolemia 136 85367 E78.00 Headache 24868987 R51.9 R27.0 Irritable bowel syndrome with diarrhea 294768315 K58.0 [id number] Jose J Bran MD [facility] Internal Med [facility] [address] [address] 08/06/2023 11:13:20 08/06/2023 11:57:02 Administration of influenza vaccine 23709035 Z23 Atrial fibrillation 4943 6004 I48.91 Coronary arteriosclerosis 77641803 I25.10 Essential hypertension 86692893 I10 Hypercholesterolemia 136 11759 E78.00 Type 2 tato betes mellitus 16568901 E11.9 [id number] Jose J Bran MD [facility] Internal Med [place] [address] [address] 12/05/2023 11:26:09 12/05/2023 13:39:45 Coronary arteriosclerosis 03667066 I25.10 Essential hypertension 42862608 I10 Atrial fibrillation 4943 6004 I48.91 Abdominal mass 929488731 R19.00 Hypercholesterolemia 136 70545 E78.00 Type 2 tato betes mellitus 21271842 E11.9 [id number] Jose J Bran MD [facility] Internal Med [facility] [address] [address] 01/16/2024 15:46:14 01/16/2024 16:44:39 Atrial fibrillation 03995843 I48.91 Coronary arteriosclerosis 50474220 I25.10 Essential hypertension 43938549 I10 Hypercholesterolemia 136 36007 E78.00 Type 2 tato betes mellitus 51195137 E11.9 Abdominal mass 510583739 R19.00 Chronic re spiratory failure 56894107 J96.10 [id number] Jose J Bran MD [facility] Internal Med [facility] [address] [address] 04/24/2024 15:17:16 05/05/2024 10:17:49 Abdominal mass 473351244 R19.00 Osteoarthritis 157794710 M19.90 Chronic re spiratory failure 04274244 J96.10 Anxiety 19233022 F41.9 [id number] Jose J Bran MD [facility] Internal Med [facility] [address] [address] 05/26/2024 14:47:12 05/26/2024 15:40:07 Coronary arteriosclerosis 84458332 I25.10 Essential hypertension 30577947 I10 Hypercholesterolemia 136 92108 E78.00 Type 2 tato betes mellitus 79872893 E11.9 Malignant tumor of pancreas 889108030 C25.9 Obese class II 558862123 1 90109 E66.9 [id number] Jose J Bran MD [facility] Primary Care [facility] [address] [facility] [address] [place] [address] 11/04/2024 15:06:11 11/04/2024 16:28:22 Coronary arteriosclerosis 49330203 I25.10 Hypercholesterolemia 136 33579 E78.00 Atrial fibrillation 4943 6004 I48.91 Malignant tumor of pancreas 215240583 C25.9 Type 2 tato betes mellitus 79720326 E11.9 Goals Section Goal Description Progress Status Start Date LastModified by Organization Details LastModified Time Quality of Life Reports satisfaction with quality of life NoChange active 2023 Darlin Eckert RN Information not available 04/24/2024 20:05:50 Adequate Sleep Achieves adequate, well-rested sleep with minimal disruption Progressing active 2023 Darlin Eckert RN Information not available 04/24/2024 20:07:52 Medicati on Regimen Follows medication regimen as per care team recommendation (s) Progressing active 2023 Darlin Eckert RN Information not available 04/24/2024 20:07:55 Follow-u p Appointm ent(s) Attends referral and/or follow-up appointment(s) as per care team recommendation (s) Progressing active 2023 Darlin Eckert RN Information not available 04/24/2024 20:08:00 Knowledg e of Disease or Conditio n Demonstrates understanding of disease(s) or condition(s) Progressing active 2023 Darlin Eckert RN Information not available 04/24/2024 20:08:03 Health Concerns Section Related Observation LastModified by Organization Detai ls LastModified Time None Recorded Concern Status LastModified by Organization Details LastModified Time Osteoarthritis Active Darlin Eckert RN Not Available 0 04/24/2024 19:46:49 Abdominal mass Active Darlin Eckert RN Not Available 0 04/24/2024 19:46:05 Chronic respiratory failure Active Darlin Eckert RN Not Available 04/24/2024 19:4 6:23 Advance Directives Directive N: Payers Encounter Date Sequence Insurance Name Policy Number Policy Aldana Covered Member ID Aldana Member ID Guarantor Name 12/05/2023 1 [employer] - [employer]US (MEDICARE REPLACEMENT HMO) Claudia Mac [id number] Claudia Mac 01/16/2024 1 [employer] - [employer] (MEDICARE REPLACEMENT HMO) Claudia Mac [id number] Claudia Mac 01/16/2024 2 [place] WHEN MEDICARE OR MEDICARE REPLACEMENT PRIMARY) Claudia Mac [id number] Claudia Mac 04/24/2024 1 [employer] - [place] [employer] (MEDICARE REPLACEMENT HMO) Claudia Mac [id number] Claudia Mac 04/24/2024 2 [place] MEDICARE REPLACEMENT PRIMARY) Claudia Mac [id number] Claudia Mac 05/26/2024 2 [place] MEDICARE REPLACEMENT PRIMARY) Claudia Mac [id number] Claudia Mac 05/26/2024 1 [place] Claudia Mac [id number] Claudia Mac 11/04/2024 1 [employer] (MEDICARE REPLACEMENT/AD VANTAGE - PPO) Claudia Urias Mac [id number] Claudia A Mac Notes Date Note Type Note Provider Name and Address Organization Details Recorded Time text/html Patient Name: Claudia MacDate Of Service: Sunday ( 12.05.2023 ): 1935 Age: 88 There has been approximately a 9 lb weight loss since 08/06/2023. This represents approximately a 5.1% change in weight. Weight change attributable to lifestyle changes. Vital Signs:Blood Pressure: Sitting Rt. Arm 130/80Pulse: Sitting 83 /min and RegularRespiratory Rate: 12Height 60 in or 1.5 mWeight 167 lb or 75.7 kgBMI 32.6Temperature: 97.4 F or 36.3 CPulse Oximetry: 98 % at rest on no oxygen Chief Complaint: Addressed in HPI Problems or conditions discussed in the HPI were the only ones reviewed during the encounter.Only social and family history addressed in the HPI were reviewed during this encounter. Attendant(s): DaughterConstitutional and Systemic Symptoms:none Medication Reconciliation: from medication list. Skxqbjebugl44/30/2023: Pharmacological stress test showed left ventricle of normal size. There is no evidence of any stress-induced left ventricular dilatation. Pulmonary and right ventricular activity is unremarkable. Both rest and stress images reveal a moderate-sized of absent 11/06/2022: Echocardiogram demonstrated an estimated ejection fraction of 60%. There was abnormal septal motion consistent with the pacemaker implant. Normal right ventricular size and systolic function. There is no significant mitral or tricuspid abnormalities. There is mild aortic sclerosis. Gradients across the valve were normal. 11/24/2022: CT scan the abdomen and pelvis no CT scan evidence of any potential cause of the patient's symptomatology. There is a 5 mm cyst of the left kidney. Some calcification noted in the abdominal aorta. There is no pathologically enlarged lymph nodes. Some minimal dependent atelectasis in the lung bases are noted. Coronary artery calcifications are also noted. 02/06/2023: CT of the brain shows no intracranial mass lesions or evidence of previous stroke. Essentially normal 10-15-2023: Echocardiogram shows estimated ejection fraction of 70%. Grade 3 diastolic dysfunction. Right ventricular function normal. There is trace mitral and tricuspid regurgitation. 10-15-2023: CT abdomen and pelvis showed interval increase in size of mass in the left upper quadrant situated between the tail of pancreas and splenic hilum. Specific concern for possible malignancy including lymphoma. Multifocal pneumonia involving all lobes of both lungs most prominent in the lower lobes. Mild mediastinal bilateral hilar and hilar adenopathy could be reactive due to metastatic disease or lymphoma. Radiographic changes suggestive of Cirrhosis History of Present Illness #1. Coronary Artery Disease: There has been no change in frequency - duration - intensity in frequency, duration or intensity of chest pain. Other Complaints: none The frequency of anginal attacks is none at all. Additional Symptoms: none Therapy reviewed regarding cardiovascular management includes Losartan Potassium #2. Essential Hypertension: Stage: Stage I Interval Neurological Complaints dizziness and ataxia. No shortness of breath, orthopnea or cardiovascular symptoms. No other symptoms related to end organ damage. Pressure has been under excellent control. Currently normal. No other end organ symptoms or findings. Therapy reviewed regarding management of hypertension and includes salt restriction and Losartan Potassium. #3. Atrial Fibrillation: Type: Paroxysmal with recurrent episodes lasting less than 7 days. Further classification: Non-valvular. Associated history of essential hypertension. No attending hx of any shortness of breath, palpitations, syncopal or neurological symptoms. Current medications: no specific medication. Rate control: controlled ventricular response [id number] Criteria: hypertension and Age > 75 for embolic phenomenon. Anticoagulation: Eliquis #4. Type II Hypercholesterolaemia: Currently taking medication and tolerating well. No interval complaints of any muscle pain or arthralgia. No significant liver changes with medications. Last lipid panel: fair control. Therapy reviewed regarding treatment of cholesterol management and include diet. #5. Complaining of numbness in the lower extremities and difficulty ambulating because of balance problems. Denies any associated pain or discomfort. Denies any neck pain, thoracic or even lumbar pain. No incontinence of urine or stool. No saddle anesthesia. Apparently this is somewhat new onset. Was in the hospital but apparently did not address that complaint orally she did not tell about that complaint while in there.#6. Type 2 diabetes current taking glimepiride last hemoglobin A1c as of August 06, 2023 was 6.4 with an estimated average blood sugar 137. Is clinically stable otherwise with regard to this.#7. Abdominal mass etiology which obscure in the tail the pancreas. Will need further studies including a CA 19-9 as well as a PET scan. Continue with current Rx at this time. Pending those results. Active Medication ListLosartan Potassium 50 MG (TABLET - ORAL) Once DailyAmaryl 2 MG (TABLET - ORAL) One Twice DailyAtorvastatin Calcium 80 MG (TABLET - ORAL) One DailyAtivan 0.5 MG (TABLET - ORAL) One Tid Prn For AnxietyEliquis 5 MG (TABLET - ORAL) One Twice A DayNeurontin 300 MG (CAPSULE - ORAL) One Three Times A Day Adverse Drug Reactions ReviewedCodeine Nausea And VomitingMetformin Hydrochloride Nausea Vaccination and Jomhxyiewchk2478-73 Influenza Surgical Nyxkvkd3959-80 Fwgupcdjs6003-75 Lap Bimctclgytamvrj3344-71 [facility] Preventative Bxmxvbd6408/06/2023 ALBUMIN 4.0 G/DL N1 MICRO ALBUMIN <6.0 MG/L N1 HAIC 6.4 % H002/02/2023 ZEWAVAYEJ10/14/2022 MAMMOGRAM / OPHTHALMOLOGY 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 One of CA breast and one from dementia3 brothers. One living and two of some form cancer.Menarche 13 Menopause 51 A0 Jose J Bran MD [address] [facility], [facility] [address], [place], [address], [place] [employer] 12/05/2023 12:04:37 04/10/202 4 text/html Patient Name: Claudia Smalls Of Service: Sunday ( 01.16.2024 ): 1935 Age: 88 There has been approximately a 9 lb weight gain since 12/05/2023. This represents approximately a 5.4% change in weight. Weight change attributable to lifestyle changes. Vital Signs:Blood Pressure: Sitting Rt. Arm 122/72Pulse: Sitting 176 /min and RegularRespiratory Rate: 22Height 60 in or 1.5 mWeight 176 lb or 79.8 kgBMI 34.4Temperature: 97 F or 36.1 CPulse Oximetry: 92 % at rest on no oxygen Chief Complaint: Addressed in HPI Problems or conditions discussed in the HPI were the only ones reviewed during the encounter.Only social and family history addressed in the HPI were reviewed during this encounter. Attendant(s): NoneConstitutional and Systemic Symptoms:none Medication Reconciliation: from medication list. Uzmlgdttzsn88/30/2023: Pharmacological stress test showed left ventricle of normal size. There is no evidence of any stress-induced left ventricular dilatation. Pulmonary and right ventricular activity is unremarkable. Both rest and stress images reveal a moderate-sized of absent 11/06/2022: Echocardiogram demonstrated an estimated ejection fraction of 60%. There was abnormal septal motion consistent with the pacemaker implant. Normal right ventricular size and systolic function. There is no significant mitral or tricuspid abnormalities. There is mild aortic sclerosis. Gradients across the valve were normal. 11/24/2022: CT scan the abdomen and pelvis no CT scan evidence of any potential cause of the patient's symptomatology. There is a 5 mm cyst of the left kidney. Some calcification noted in the abdominal aorta. There is no pathologically enlarged lymph nodes. Some minimal dependent atelectasis in the lung bases are noted. Coronary artery calcifications are also noted. 02/06/2023: CT of the brain shows no intracranial mass lesions or evidence of previous stroke. Essentially normal 10-15-2023: Echocardiogram shows estimated ejection fraction of 70%. Grade 3 diastolic dysfunction. Right ventricular function normal. There is trace mitral and tricuspid regurgitation. 10-15-2023: CT abdomen and pelvis showed interval increase in size of mass in the left upper quadrant situated between the tail of pancreas and splenic hilum. Specific concern for possible malignancy including lymphoma. Multifocal pneumonia involving all lobes of both lungs most prominent in the lower lobes. Mild mediastinal bilateral hilar and hilar adenopathy could be reactive due to metastatic disease or lymphoma. Radiographic changes suggestive of Cirrhosis History of Present Illness #1. Coronary Artery Disease: There has been no change in frequency - duration - intensity in frequency, duration or intensity of chest pain. Other Complaints: shortness of breath The frequency of anginal attacks is none at all. Additional Symptoms: none Therapy reviewed regarding cardiovascular management includes Atorvastatin Calcium, Eliquis and Losartan Potassium #2. Essential Hypertension: Stage: Stage I Interval Neurological Complaints no headaches, dizziness, weakness, visual changes, ataxia, aphasia and apraxia. No shortness of breath, orthopnea or cardiovascular symptoms. No other symptoms related to end organ damage. Pressure has been under excellent control. Currently normal. No other end organ symptoms or findings. Therapy reviewed regarding management of hypertension and includes salt restriction and Losartan Potassium. #3. Type II Hypercholesterolaemia: Currently taking medication and tolerating well. No interval complaints of any muscle pain or arthralgia. No significant liver changes with medications. Last lipid panel: fair control. Therapy reviewed regarding treatment of cholesterol management and include diet and Medication. #4. Atrial Fibrillation: Type: Persistent with recurrent episodes lasting longer than 7 days. Further classification: Non-valvular. Associated history of no specific medication. No attending hx of any shortness of breath, palpitations, syncopal or neurological symptoms. Current medications: controlled ventricular response. Rate control: hypertension, Age > 75 and and considered moderate risk [id number] Criteria: Eliquis for embolic phenomenon. Anticoagulation: Type II #5. no polyuria polyphagia or polydipsia Diabetes: Has had no. Has had DCCT HAIC: 6.4 Calculated MB mg% hypoglycemic like responses. No new history of any numbness, tingling, weakness or visual problems. No nausea, anorexia or other constitutional symptoms. There has been no foot problems or non healing lesions. The last HAIC was 125-150 mg%. Average blood sugars infrequently. Checking sugars : Sulfonylureas Medication Types Include: none Secondary complications include ASHD. Macro-vascular complications include Amaryl. Therapy reviewed regarding diabetic management and include good Compliance: ARBs Renal Protection: statins Lipid management: A1 Urinary microalbumin: has seen eye doctor within the last year . Ophthalmological: Has an asymptomatic mass in the tail of pancreas with possible adenopathy also in the chest. This probably contributing in part to respiratory difficulty. Even on 3 L of oxygen general only pulse ox and approximately 90%. Needs a full body CT scan or even PET scan for further evaluation but the family is having a hard time getting her in to have this done and also the reluctance on the patient's part to have anything done since she is kind of reached a point where she is not sure whether she would do anything if they found something quite serious. #6. Chronic respiratory failure as outlined above. Currently pulse ox at 90 on 3 L. needs to have a least a portable oxygen tank for transporting the patient to and from different Locations.: #7. Class 1 Obesity BMI 30-34.99: #8. Hx of obesity. Currently No. Has tried numerous dietary support and supplements with no benefit. Instructed on the health consequences of the obese status particularly cancer - diabetes and heart disease. Discussed new modalities of weight loss including GLP-1 medications that are used to treat diabetes. Potential candidate for bariatric surgery: No and was offered to be evaluated and instructed by general store manager on weight loss diet. Wishes to be evaluated by Dietary: No and was offered to be evaluated and instructed by general store manager on weight loss diet. Active Medication ListLosartan Potassium 50 MG (TABLET - ORAL) Once DailyAmaryl 2 MG (TABLET - ORAL) One Twice DailyAtorvastatin Calcium 80 MG (TABLET - ORAL) One DailyAtivan 0.5 MG (TABLET - ORAL) One Tid Prn For AnxietyEliquis 5 MG (TABLET - ORAL) One Twice A DayNeurontin 300 MG (CAPSULE - ORAL) One Three Times A Day Adverse Drug Reactions ReviewedCodeine Nausea And VomitingMetformin Hydrochloride Nausea Vaccination and Maogxbimwtez2718-69 Influenza Surgical Rwvuiwj5191-86 Harvakgjo0657-27 Lap Ciyvluuvhmzcjrg4113-26 [facility] Preventative Jlukvnx3408/06/2023 ALBUMIN 4.0 G/DL N1 MICRO ALBUMIN <6.0 MG/L N1 HAIC 6.4 % H002/02/2023 TTMJNSXUD50/14/2022 MAMMOGRAM / OPHTHALMOLOGY 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 One of CA breast and one from dementia3 brothers. One living and two of some form cancer.Menarche 13 Menopause 51 A0 Active Medication ListLosartan Potassium 50 MG (TABLET - ORAL) Once DailyAmaryl 2 MG (TABLET - ORAL) One Twice DailyAtorvastatin Calcium 80 MG (TABLET - ORAL) One DailyAtivan 0.5 MG (TABLET - ORAL) One Tid Prn For AnxietyEliquis 5 MG (TABLET - ORAL) One Twice A DayNeurontin 300 MG (CAPSULE - ORAL) One Three Times A Day Adverse Drug Reactions ReviewedCodeine Nausea And VomitingMetformin Hydrochloride Nausea Vaccination and Mvnrzhsyqntw9405-71 Influenza Surgical Rljsdhh1638-50 Mgfxlwcov7527-67 Lap Rduvbwslnpibivs0381-54 [facility] Preventative Cokrdcs7808/06/2023 ALBUMIN 4.0 G/DL N1 MICRO ALBUMIN <6.0 MG/L N1 HAIC 6.4 % H002/02/2023 URMTFMKVA44/14/2022 MAMMOGRAM / OPHTHALMOLOGY 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 One of CA breast and one from dementia3 brothers. One living and two of some form cancer.Menarche 13 Menopause 51 A0 Jose J Bran MD [address] [facility] [address], [place], [address], [facility] 01/16/2024 16:39:44 4 text/html Patient Name: Claudia MacDate Of Service: Sunday ( 05.26.2024 ): 1935 Age: 89 There has been approximately a 4 lb weight gain since 01/16/2024. This represents approximately a 2.3% change in weight. Weight change attributable to lifestyle changes. Vital Signs:Blood Pressure: Sitting Rt. Arm 120/70Pulse: Sitting 87 /min and RegularRespiratory Rate: 14Height 60 in or 1.5 mWeight 180 lb or 81.6 kgBMI 35.1 Chief Complaint: Addressed in HPI Problems or conditions discussed in the HPI were the only ones reviewed during the encounter.Only social and family history addressed in the HPI were reviewed during this encounter. Attendant(s): DaughterConstitutional and Systemic Symptoms:none, chills, night sweats, anorexia, weight loss, weight gain, generalized fatigue, myalgia and arthralgia Medication Reconciliation: from medication list. Nxdpitpobse81/30/2023: Pharmacological stress test showed left ventricle of normal size. There is no evidence of any stress-induced left ventricular dilatation. Pulmonary and right ventricular activity is unremarkable. Both rest and stress images reveal a moderate-sized of absent 11/06/2022: Echocardiogram demonstrated an estimated ejection fraction of 60%. There was abnormal septal motion consistent with the pacemaker implant. Normal right ventricular size and systolic function. There is no significant mitral or tricuspid abnormalities. There is mild aortic sclerosis. Gradients across the valve were normal. 11/24/2022: CT scan the abdomen and pelvis no CT scan evidence of any potential cause of the patient's symptomatology. There is a 5 mm cyst of the left kidney. Some calcification noted in the abdominal aorta. There is no pathologically enlarged lymph nodes. Some minimal dependent atelectasis in the lung bases are noted. Coronary artery calcifications are also noted. 02/06/2023: CT of the brain shows no intracranial mass lesions or evidence of previous stroke. Essentially normal 10-15-2023: Echocardiogram shows estimated ejection fraction of 70%. Grade 3 diastolic dysfunction. Right ventricular function normal. There is trace mitral and tricuspid regurgitation. 10-15-2023: CT abdomen and pelvis showed interval increase in size of mass in the left upper quadrant situated between the tail of pancreas and splenic hilum. Specific concern for possible malignancy including lymphoma. Multifocal pneumonia involving all lobes of both lungs most prominent in the lower lobes. Mild mediastinal bilateral hilar and hilar adenopathy could be reactive due to metastatic disease or lymphoma. Radiographic changes suggestive of Cirrhosis 01-24-2024: PET scan multiple FDG avid masses in the upper abdomen extending between the splenic hilum and in portacaval lymph nodes. This is suspicious for lymphoma or metastatic disease. The left upper quadrant masses situated between the spleen, tail the pancreas in the fundus the stomach. 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 History of Present Illness #1. Coronary Artery Disease: There has been no change in frequency - duration - intensity in frequency, duration or intensity of chest pain. Other Complaints: none The frequency of anginal attacks is none at all. Additional Symptoms: none Therapy reviewed regarding cardiovascular management includes Atorvastatin Calcium, Eliquis and Losartan Potassium #2. Essential Hypertension: Stage: Stage I Interval Neurological Complaints no headaches, dizziness, weakness, visual changes, ataxia, aphasia and apraxia. No shortness of breath, orthopnea or cardiovascular symptoms. No other symptoms related to end organ damage. Pressure has been under excellent control. Currently normal. No other end organ symptoms or findings. Therapy reviewed regarding management of hypertension and includes salt restriction and Losartan Potassium. #3. Type II Hypercholesterolaemia: Currently taking medication but having problems tolerating the medication. No interval complaints of any muscle pain or arthralgia. No significant liver changes with medications. Last lipid panel: fair control. Therapy reviewed regarding treatment of cholesterol management and include diet and Atorvastatin Calcium. #4. Type II Diabetes: Has had no polyuria polyphagia or polydipsia. Has had no hypoglycemic like responses. No new history of any numbness, tingling, weakness or visual problems. No nausea, anorexia or other constitutional symptoms. There has been no foot problems or non healing lesions. The last HAIC was DCCT HAIC: 6.4 Calculated MB mg%. Average blood sugars 125-150 mg%. Checking sugars : infrequently Medication Types Include: Sulfonylureas Secondary complications include none. Macro-vascular complications include none. Therapy reviewed regarding diabetic management and include Amaryl Compliance: good Renal Protection: ARBs Lipid management: statins Urinary microalbumin: A1 . Ophthalmological: has seen eye doctor within the last year #5. Class 2 Obesity BMI 35-39.99: #6. Hx of obesity. Currently no. Has tried numerous dietary support and supplements with no benefit. Instructed on the health consequences of the obese status particularly cancer - diabetes and heart disease. Discussed other modalities of weight loss No. Potential candidate for bariatric surgery: No and was offered to be evaluated and instructed by general store manager on weight loss diet. Wishes to be evaluated by Dietary: No and was offered to be evaluated and instructed by general store manager on weight loss diet. Active Medication ListLosartan Potassium 50 MG (TABLET - ORAL) Once DailyAmaryl 2 MG (TABLET - ORAL) One Twice DailyAtorvastatin Calcium 80 MG (TABLET - ORAL) One DailyAtivan 0.5 MG (TABLET - ORAL) One Tid Prn For AnxietyEliquis 5 MG (TABLET - ORAL) One Twice A DayNeurontin 300 MG (CAPSULE - ORAL) One Three Times A Day Adverse Drug Reactions ReviewedCodeine Nausea And VomitingMetformin Hydrochloride Nausea Vaccination and Cdaiejvupzvg5844-98 Influenza Surgical Chzlvrr1462-45 Pqgiaowgb9734-76 [facility] Olytvdddvezavec4325-35 [facility] Preventative Testing( ) 02/10/2024 Upper Endoscopy( ) 08/06/2023 Albumin 4.0 G/DL N( ) 08/06/2023 Micro Albumin <6.0 MG/L N( ) 08/06/2023 HAIC 6.4 % H( ) 02/02/2023 Optometry(X) 04/20/2022 Mammogram 04/20/2024( ) 03/24/2020 Ophthalmology 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 One of CA breast and one from dementia3 brothers. One living and two of some form cancer.Menarche 13 Menopause 51 A0 Active Medication ListLosartan Potassium 50 MG (TABLET - ORAL) Once DailyAmaryl 2 MG (TABLET - ORAL) One Twice DailyAtorvastatin Calcium 80 MG (TABLET - ORAL) One DailyAtivan 0.5 MG (TABLET - ORAL) One Tid Prn For AnxietyEliquis 5 MG (TABLET - ORAL) One Twice A DayNeurontin 300 MG (CAPSULE - ORAL) One Three Times A Day Adverse Drug Reactions ReviewedCodeine Nausea And VomitingMetformin Hydrochloride Nausea Vaccination and Aggoesczdpxx1033-96 Influenza Surgical Wdsfdas1335-21 Cxghiirsg8957-35 [facility] Vtlloquyszmuioh3547-73 [facility] Preventative Testing( ) 02/10/2024 Upper Endoscopy( ) 08/06/2023 Albumin 4.0 G/DL N( ) 08/06/2023 Micro Albumin <6.0 MG/L N( ) 08/06/2023 HAIC 6.4 % H( ) 02/02/2023 Optometry(X) 04/20/2022 Mammogram 04/20/2024( ) 03/24/2020 Ophthalmology 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 One of CA breast and one from dementia3 brothers. One living and two of some form cancer.Menarche 13 Menopause 51 A0 Jose J Bran MD [address] [facility], [facility] [address], [place], [address], [facility] [place] [employer] [facility] 05/26/2024 15:36:10 5 text/html Patient Name: Claudia Smalls Of Service: Sunday ( 11.04.2024 ): 1935 Age: 89 There has been approximately a 14 lb weight loss since 05/26/2024. This represents approximately a 7.8% change in weight. Weight change attributable to lifestyle changes. Vital Signs:Blood Pressure: Sitting Rt. Arm 122/70Pulse: Sitting 56 /min and RegularRespiratory Rate: 16Height 60 in or 1.5 mWeight 166 lb or 75.3 kgBMI 32.4Temperature: 97 F or 36.1 CPulse Oximetry: 98 % at rest on no oxygen Chief Complaint: Addressed in HPI Problems or conditions discussed in the HPI were the only ones reviewed during the encounter.Only social and family history addressed in the HPI were reviewed during this encounter. Attendant(s): DaughterConstitutional and Systemic Symptoms:none Medication Reconciliation: from medication list. Pzkbzlymvph38/30/2023: Pharmacological stress test showed left ventricle of normal size. There is no evidence of any stress-induced left ventricular dilatation. Pulmonary and right ventricular activity is unremarkable. Both rest and stress images reveal a moderate-sized of absent 11/06/2022: Echocardiogram demonstrated an estimated ejection fraction of 60%. There was abnormal septal motion consistent with the pacemaker implant. Normal right ventricular size and systolic function. There is no significant mitral or tricuspid abnormalities. There is mild aortic sclerosis. Gradients across the valve were normal. 11/24/2022: CT scan the abdomen and pelvis no CT scan evidence of any potential cause of the patient's symptomatology. There is a 5 mm cyst of the left kidney. Some calcification noted in the abdominal aorta. There is no pathologically enlarged lymph nodes. Some minimal dependent atelectasis in the lung bases are noted. Coronary artery calcifications are also noted. 02/06/2023: CT of the brain shows no intracranial mass lesions or evidence of previous stroke. Essentially normal 10-15-2023: Echocardiogram shows estimated ejection fraction of 70%. Grade 3 diastolic dysfunction. Right ventricular function normal. There is trace mitral and tricuspid regurgitation. 10-15-2023: CT abdomen and pelvis showed interval increase in size of mass in the left upper quadrant situated between the tail of pancreas and splenic hilum. Specific concern for possible malignancy including lymphoma. Multifocal pneumonia involving all lobes of both lungs most prominent in the lower lobes. Mild mediastinal bilateral hilar and hilar adenopathy could be reactive due to metastatic disease or lymphoma. Radiographic changes suggestive of Cirrhosis 01-24-2024: PET scan multiple FDG avid masses in the upper abdomen extending between the splenic hilum and in portacaval lymph nodes. This is suspicious for lymphoma or metastatic disease. The left upper quadrant masses situated between the spleen, tail the pancreas in the fundus the stomach. 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 History of Present Illness #1. Coronary Artery Disease: There has been no change in frequency - duration - intensity in frequency, duration or intensity of chest pain. Other Complaints: none The frequency of anginal attacks is none at all. Additional Symptoms: none Therapy reviewed regarding cardiovascular management includes Atorvastatin Calcium, Cardizem Cd, Eliquis and Losartan Potassium #2. Type II Hypercholesterolaemia: Currently taking medication and tolerating well. No interval complaints of any muscle pain or arthralgia. No significant liver changes with medications. Last lipid panel: fair control. Therapy reviewed regarding treatment of cholesterol management and include diet and Atorvastatin Calcium. #3. Atrial Fibrillation: Type: Paroxysmal with recurrent episodes lasting less than 7 days. Further classification: Non-valvular. Associated history of none. No attending hx of any shortness of breath, palpitations, syncopal or neurological symptoms. Current medications: no specific medication. Rate control: controlled ventricular response [id number] Criteria: Age > 75 for embolic phenomenon. Anticoagulation: Eliquis #4. History of malignant neoplasm of the pancreas clinically stable. Discussions with the daughter trying to place her on insulin which I do not think is necessary in light of her advanced disease and difficulty supplying this to the patient with little in the way of any knowledge of diabetes. Will check a hemoglobin A1c last one was 6.7. It is not likely she is going to run any type of danger from the diabetes. More likely from the malignancy itself.: Active Medication ListLosartan Potassium 50 MG (TABLET - ORAL) Once DailyAmaryl 2 MG (TABLET - ORAL) One Twice DailyAtorvastatin Calcium 80 MG (TABLET - ORAL) One DailyAtivan 0.5 MG (TABLET - ORAL) One Tid Prn For AnxietyDicyclomine 10 MG CAPSULE One Three Times A Day Before MealsCardizem Cd 120 MG CAPSULE, COATED, EXTENDED RELEASE Once DailyNorco 5-325 MG One Every 6 Hours As NeededEliquis 5 MG (TABLET - ORAL) One Twice A Day Adverse Drug Reactions ReviewedCodeine Nausea And VomitingMetformin Hydrochloride Nausea Vaccination and Immunization(X) 2022- INFLUENZA Surgical Mplwyub5135-30 Bunkjktsl4421-89 Lap Zyauancftypjeer2266-59 [facility] Preventative Testing( ) 05/26/2024 Micro Albumin 6.3 MG/L( ) 05/26/2024 HAIC 6.7 % H( ) 02/10/2024 Upper Endoscopy 02/09/2063( ) 08/06/2023 Albumin 4.0 G/DL N( ) 02/02/2023 Optometry( ) 04/20/2022 Mammogram( ) 03/24/2020 Ophthalmology 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 One of CA breast and one from dementia3 brothers. One living and two of some form cancer.Menarche 13 Menopause 51 A0 Jose J Bran MD [address] [facility], [facility] [address], [place], [address], [place] [facility] [employer] 11/04/2024 16:23:17 OBGyn Episode No OBEpisode recorded.
--- OUTSIDE RECORDS SUMMARY | 2024-11-12 14:34 | XMS_ITS | Clinical Summary ---
Author Organization [facility] Address [address] [place] [address] Care Team Providers Care Wash Test Checker Name Role Phone Jose J Bran MD Primary Care Provider [phone] Source Comments [facility],non-owned Affiliates and Associated Physician Practices is amultiple site organization consisting of ambulatory clinics and hospital sitesin [place], [place], [place] and [place]. This disclosure is being madepursuant to the Care Everywhere program and may not contain all information available regarding this patient. Last updated 18.[facility] Allergies No known active allergies Medications * Be aware that medications may not be up to date on this document. Alwaysverify current medications with the patient. Medication Sig Dispensed Refills Start Date End Date Status lisinopril (PRINIVIL; ZESTRIL) 10 MG tablet Take 10 mg by mouth once daily Active predniSONE (DELTASONE) 20 MG tablet Take three pills for the first five days, then two pills for three days, then one pill for three days 21 tablet 07/22/2018 Active Glycerin-Hypromellose -PEG 400 (VISINE TEARS) 0.2-0.2-1 % Instill 1 drop into right eye 4 times daily 1 bottles 07/22/2018 Active Active Problems Problem Noted Date Diagnosed Date Arm numbness 12/11/2022 Social History Tobacco Use Types Packs/Day Years Used Date Smoking Tobacco: Never Sex and Gender Information Value Date Recorded Sex Assigned at Not on file Gender Identity Not on file Sexual Orientation Not on file Last Filed Vital Signs Vital Sign Reading Time Taken Comments Blood Pressure 159/80 07/22/2018 5:00 PM CDT Pulse 67 07/22/2018 1:00 PM CDT Temperature 36.3 C (97.4 F) 07/22/2018 12:24 PM CDT Respiratory Rate 18 07/22/2018 12:24 PM CDT Oxygen Saturation 96% 07/22/2018 5:00 PM CDT Inhaled Oxygen Concentration - - Weight 86.2 kg (190 lb) 07/22/2018 12:34 PM CDT Height 154.9 cm (5' 1 ) 07/22/2018 12:34 PM CDT Body Mass Index 35.9 07/22/2018 12:34 PM CDT Plan of Treatment Health Maintenance Due Date Last Done Comments BONE DENSITY TESTING 1936 DTAP/TDAP/TD VACCINES (1 - Tdap) 1955 PNEUMOCOCCAL VACCINE 50+ (1 of 1 - PCV) 1986 ZOSTER VACCINE (1 of 2) 1986 Respiratory Syncytial Virus (RSV) Vaccine Pt: or over 60 yrs (1 - 1-dose 75+ series) 2011 COVID-19 VACCINE (2023-2 5 season) 2024 INFLUENZA VACCINE (#1) 2024 DEPRESSION SCREENING 10/08/2024 MEDICARE AWV CALENDAR YEAR 2024 HEPATITIS B VACCINE Aged Out No longe r eligible based on patient's age to complete this topic HIB VACCINE Aged Out No longer eligi ble based on patient's age to complete this topic HPV VACCINE Aged Out No longer eligi ble based on patient's age to complete this topic MENINGOCOCCAL (Group B) VACCINE Aged Out No longer eligible based on patient's age to complete this topic MENINGOCOCCAL VACCINE Aged Out No lola shira eligible based on patient's age to complete this topic Care Teams Wash Test Checker Relationship Specialty Start Date End Date Jose J Bran MD [address] [place] [address] [address] [place] [address] PCP - General Internal Medicine 07/22/18
--- OUTSIDE RECORDS SUMMARY | 2024-11-12 14:34 | XMS_ITS | CONTINUITY OF CARE DOCUMENT ---
Author Name slim smalls Address Unknown Organization [facility] Address [address] 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 Edvin Katz MD Coronary Heart Disease active ? Edvin martinez MD Leg pain active Edvin Katz MD Other chest pain active Edvin Guerrero Hyperlipidemia active Brando Fam MD HTN essential active Edvin Katz MD Angina pectoris active Edvin Katz MD Other symptoms involving hea d and neck--R arm numbness completed - Brando Fam MD ?Unspecified disorders of nervous system-R arm numbness completed - Brando Fam MD Atrial Fibrillation active Brando Fam MD Sick sinus syndrome active Brando Fam MD Dizziness / vertigo active Brando Fam MD Family History of Sudden Cardiac : active ? Edvin Katz MD ENCOUNTERS Date Type Provider Location Encounter Diag nosis - In-person encounter Office Visit Brando Fam MD [place] - In-person encounter Office Visit Brando Fam MD [place] Dizziness / vertigo - In-person encounter Office Visit Brando Fam MD [place] - In-person encounter Office Visit Brando Fam MD [facility] - In-person encounter Office Visit Brando Fam MD [place] Sick sinus syndrome - In-person encounter Office Visit Brando Fam MD [place] - In-person encounter Office Visit Brando Fam MD [facility] Other symptoms involving head and neck--R arm numbnessAtrial Fibrillation - In-person encounter Office Visit Brando Fam MD [place] Hyperlipidemia?Unspecified disorders of nervous system-R arm numbness - In-person encounter Office Visit Edis Ritter MD [place] - In-person encounter Office Visit Edvin Katz MD [place] Family History of Sudden Cardiac :Family History of Sudden Cardiac :Coronary Heart DiseaseLeg painOther chest painHyperlipidemiaHTN essentialAngina pectoris VITAL SIGNS Date Observation Value Provider blood pressure, cuff size regular Ke rri Asifnecarlos a blood pressure, diastolic 80 mm[Hg] Ke rri Franuenenfandreinaer blood pressure, systolic 124 mm[Hg] Anabell Castellon Inhaled O2 3 L/min Melina Dawson lder oxygen saturation, oximetry 100 % Melina Castellon respiratory rate E&M 12 /min Melina feldman pulse rate 69 /min Melina Dawson lder height E&M 62 [in_i] Melina hernandez Body Mass Index (Ratio) 32.00 kg/m2 Flako Fam MD blood pressure, cuff size regular Delio prescott Norden blood pressure, diastolic 60 mm[Hg] Delio [facility] blood pressure, systolic 134 mm[Hg] Reuben [facility] oxygen saturation, oximetry 94 % [facility] respiratory rate E&M 16 /min Cielo Vasquez iller pulse rate 86 /min [facility] weight E&M 175 [lb_av] [facility] height E&M 62 [in_i] [facility] Body Mass Index (Ratio) 32.00 kg/m2 Flako Fam MD blood pressure, diastolic 84 mm[Hg] St rossana Ferrera blood pressure, systolic 138 mm[Hg] Jake Ferrera oxygen saturation, oximetry 96 % Muna Ferrera pulse rate 88 /min Muna Ferrera weight E&M 175 [lb_av] Muna Ferrera height E&M 62 [in_i] Munabravo Ferrera Body Mass Index (Ratio) 33.47 kg/m2 Flako Fam MD blood pressure, cuff size regular Pa ris Lindsay blood pressure, diastolic 70 mm[Hg] Pa ris Furman blood pressure, systolic 132 mm[Hg] Par is Furman oxygen saturation, oximetry 96 % Jennifer Furman respiratory rate E&M 20 /min Jennifer H saumya pulse rate 77 /min Jennifer Lindsay weight E&M 183 [lb_av] Jennifer Lindsay height E&M 62 [in_i] Jennifer Lindsay Body Mass Index (Ratio) 34.20 kg/m2 Flako Fam MD blood pressure, diastolic 70 mm[Hg] Shadia nkLogic blood pressure, systolic 140 mm[Hg] Paula kLogic blood pressure, cuff size regular Cy ntaugusta Montero blood pressure, diastolic 70 mm[Hg] Cy ntaugusta Montero blood pressure, systolic 140 mm[Hg] Jennifer audie Montero oxygen saturation, oximetry 95 % Kathyaudie Montero pulse rate 83 /min Kathy Dexterbel nain respiratory rate E&M 16 /min Kathyaudie Montero weight E&M 187 [lb_av] Kathy Dexterbel l height E&M 62 [in_i] Kathy Dexterbel nain Body Mass Index (Ratio) 26.70 kg/m2 Flako Fam MD blood pressure, cuff size regular Cy maynor Montero blood pressure, diastolic 80 mm[Hg] Cy ntluciaa Montero blood pressure, systolic 150 mm[Hg] Jennifer audie Winston oxygen saturation, oximetry 94 % Kathy Winston respiratory rate E&M 94 /min Kathy Montero pulse rate 75 /min Kathy Renteriabel nain weight E&M 146 [lb_av] Kathy Dexterbel nain height E&M 62 [in_i] Kathy Dexterbel l Body Mass Index (Ratio) 34.75 kg/m2 Flako Fam MD blood pressure, cuff size regular Cy maynor Montero blood pressure, diastolic 80 mm[Hg] Cy ntluciaa Montero blood pressure, systolic 142 mm[Hg] Jennifer rennya Winston oxygen saturation, oximetry 95 % Kathy Winston respiratory rate E&M 16 /min Kathy Winston pulse rate 95 /min Kathy Campbel l weight E&M 190 [lb_av] Kathy Campbel l height E&M 62 [in_i] Kathy gillette Body Mass Index (Ratio) 35.08 kg/m2 Flako Fam MD blood pressure, diastolic 93 mm[Hg] Maricruz Turner blood pressure, systolic 184 mm[Hg] Soraida Turner oxygen saturation, oximetry 96 % Junito Turner respiratory rate E&M 18 /min Grace Turner pulse rate 92 /min Junito kumar weight E&M 191.8 [lb_av] Junito Fry enson height E&M 62 [in_i] Junito billingsleyon pulse rate #[address] [facility] blood pressure, espinoza tolic, second observation 59 mm[Hg] [facility] blood pressure, syst olic, second observation 148 mm[Hg] [facility] oxygen saturation, oximetry 98 % [facility] pulse rate 75 /min [facility] blood pressure, diastolic 59 mm[Hg] Vi ctoria Tebid blood pressure, systolic 148 mm[Hg] Jasbir jese Tebid pulse rate #[address] [facility] blood pressure, espinoza tolic, second observation 91 mm[Hg] [facility], second observation 157 mm[Hg] [facility], oximetry 98 % [facility] pulse rate 56 /min [facility] blood pressure, diastolic 94 mm[Hg] Vi ctoria Tebid blood pressure, systolic 168 mm[Hg] Jasbir jese Tebid pulse rate #[address] [facility] blood pressure, espinoza tolic, second observation 81 mm[Hg] [facility], second observation 138 mm[Hg] [facility], oximetry 98 % Una Tebid pulse rate 74 /min [place] Tebid blood pressure, diastolic 81 mm[Hg] Vi ctoria Tebid blood pressure, systolic 138 mm[Hg] Jasbir jese Tebid pulse rate #2 71 [place] Tebid blood pressure, espinoza tolic, second observation 71 mm[Hg] Una Tebid blood pressure, syst olic, second observation 131 mm[Hg] [facility], oximetry 98 % [facility] pulse rate 68 /min [place] d blood pressure, diastolic 67 mm[Hg] Vi ctoria Tebid blood pressure, systolic 133 mm[Hg] [facility] #2 54 [facility] blood pressure, espinoza tolic, second observation 86 mm[Hg] [place] d blood pressure, syst olic, second observation 148 mm[Hg] [facility], oximetry 98 % [place] d pulse rate 59 /min [place] d blood pressure, diastolic 89 mm[Hg] [facility], systolic 155 mm[Hg] Jasbir jese Tebid pulse rate #2 62 [place] Tebid blood pressure, espinoza tolic, second observation 94 mm[Hg] Una Tebid blood pressure, syst olic, second observation 174 mm[Hg] Una Tebid oxygen saturation, oximetry 98 % [place] d pulse rate 65 /min [facility], diastolic 96 mm[Hg] Vi ctoria Tebid blood pressure, systolic 183 mm[Hg] Jasbir jese Tebid pulse rate #2 62 [facility] blood pressure, espinoza tolic, second observation 92 mm[Hg] [facility] blood [facility], syst olic, second observation 167 mm[Hg] [facility] oxygen saturation, oximetry 98 % [facility] pulse rate 68 /min Una blood pressure, diastolic 96 mm[Hg] Vi ctoria Tebid blood pressure, systolic 164 mm[Hg] Jasbir jese Tebid pulse rate #2 65 [facility] blood pressure, espinoza tolic, second observation 82 mm[Hg] [facility] blood pressure, syst olic, second observation 136 mm[Hg] [facility] oxygen saturation, oximetry 98 % [facility] pulse rate 65 /min Una blood pressure, diastolic 82 mm[Hg] Vi ctoria Ted blood pressure, systolic 136 mm[Hg] Jasbir jese Ted pulse rate #2 69 [place] blood pressure, espinoza tolic, second observation 74 mm[Hg] [facility] blood pressure, syst olic, second observation 130 mm[Hg] [facility] oxygen saturation, oximetry 98 % Una pulse rate 74 /min [facility] blood pressure, diastolic 74 mm[Hg] Vi ctoria Tebid blood pressure, systolic 132 mm[Hg] Jasbir jese Tebid pulse rate #2 61 [place] d blood pressure, espinoza tolic, second observation 71 mm[Hg] [facility] blood [facility], syst olic, second observation 168 mm[Hg] Una d oxygen saturation, oximetry 98 % Una pulse rate 63 /min [facility], diastolic 74 mm[Hg] Vi ctoria Tebid blood pressure, systolic 172 mm[Hg] Jasbir jese Tebid pulse rate #[address] [facility] blood pressure, espinoza tolic, second observation 88 mm[Hg] [facility] blood pressure, syst olic, second observation 158 mm[Hg] [facility] oxygen saturation, oximetry 98 % [facility] pulse rate 64 /min [facility] blood pressure, diastolic 89 mm[Hg] [facility], systolic 152 mm[Hg] Jasbir jese Te Body Mass Index (Ratio) 34.24 kg/m2 Myrnananci vega Jose pulse rate 61 /min [facility] oxygen saturation, oximetry 97 % [facility] blood pressure, diastolic 93 mm[Hg] Al tamir [place] blood pressure, systolic 148 mm[Hg] Carol cristhian [place] respiratory rate E&M 16 /min [facility] weight E&M 187.2 [lb_av] [facility] pulse rate #[address] [facility] blood pressure, espinoza tolic, second observation 87 mm[Hg] [facility] blood pressure, syst olic, second observation 149 mm[Hg] [facility] oxygen saturation, oximetry 98 % [facility] pulse rate 67 /min [facility] blood pressure, diastolic 88 mm[Hg] [facility] blood pressure, systolic 153 mm[Hg] Jasbir jese Tebid pulse rate #[address] [facility] blood pressure, espinoza tolic, second observation 87 mm[Hg] [facility] blood pressure, syst olic, second observation 160 mm[Hg] [facility] oxygen saturation, oximetry 98 % [facility] pulse rate 58 /min [facility] blood pressure, diastolic 87 mm[Hg] Vi ctoria Tebi blood pressure, systolic 160 mm[Hg] Jasbir jese Tebi pulse rate #2 57 Una Tebid blood pressure, espinoza tolic, second observation 81 mm[Hg] Una Tebid blood pressure, syst olic, second observation 168 mm[Hg] Una Tebid oxygen saturation, oximetry 98 % Una Tebid pulse rate 63 /min Una Tebid blood pressure, diastolic 84 mm[Hg] Vi ctoria Tebid blood pressure, systolic 176 mm[Hg] Jasbir jese Tebid pulse rate #2 68 [place] Tebid blood pressure, espinoza tolic, second observation 69 mm[Hg] Una Tebid blood pressure, syst olic, second observation 138 mm[Hg] [facility], oximetry 98 % [facility] pulse [facility] 68 /min [facility], diastolic 69 mm[Hg] Vi ctoria Tebid blood pressure, systolic 138 mm[Hg] [facility] #2 64 [facility] blood pressure, espinoza tolic, second observation 71 mm[Hg] [place] Tebid blood pressure, syst olic, second observation 146 mm[Hg] [facility], oximetry 98 % [facility] pulse rate 71 /min [place] Tebid blood pressure, diastolic 74 mm[Hg] Vi ctoria Tebid blood pressure, systolic 148 mm[Hg] Jasbir jese Tebid pulse rate #2 50 [place] Tebid blood pressure, espinoza tolic, second observation 81 mm[Hg] [place] Tebid blood pressure, syst olic, second observation 154 mm[Hg] [place] Tebid oxygen saturation, oximetry 98 % [facility] pulse [facility] 56 /min [facility] blood pressure, diastolic 85 mm[Hg] Vi ctoria Tebid blood pressure, systolic 158 mm[Hg] Jasbir jese bid pulse rate #2 56 [facility] blood pressure, espinoza tolic, second observation 81 mm[Hg] [facility] blood pressure, syst olic, second observation 163 mm[Hg] [facility] oxygen [facility], oximetry 98 % [facility] pulse rate 63 /min [facility] blood pressure, diastolic 85 mm[Hg] Vi ctoria Tebid blood pressure, systolic 168 mm[Hg] Jasbir jese bid pulse rate #2 58 [facility] blood pressure, espinoza tolic, second observation 86 mm[Hg] [facility] blood pressure, syst olic, second observation 159 mm[Hg] [facility] oxygen saturation, oximetry 98 % [facility] pulse rate 61 /min [facility] blood pressure, diastolic 88 mm[Hg] [facility] Tebid blood pressure, systolic 163 mm[Hg] Jasbir jese bid pulse rate #2 56 [facility] blood pressure, espinoza tolic, second observation 85 mm[Hg] [facility] blood pressure, syst olic, second observation 139 mm[Hg] [facility], oximetry 98 % [facility] pulse rate 64 /min [facility], diastolic 87 mm[Hg] [facility], systolic 154 mm[Hg] Jasbir jese Tebid pulse rate #2 51 [facility] blood pressure, espinoza tolic, second observation 84 mm[Hg] [facility] blood pressure, syst olic, second observation 169 mm[Hg] [facility] oxygen saturation, oximetry 98 % [facility] pulse rate 51 /min Una Tebid blood pressure, diastolic 84 mm[Hg] Vi ctoria Tebid blood pressure, systolic 169 mm[Hg] Jasbir jese Tebid pulse rate #2 52 [place] Tebid blood pressure, espinoza tolic, second observation 82 mm[Hg] Una Tebid blood pressure, syst olic, second observation 138 mm[Hg] Una Tebid oxygen saturation, oximetry 98 % Una Tebid pulse rate 63 /min [place] Tebid blood pressure, diastolic 85 mm[Hg] Vi ctoria Tebid blood pressure, systolic 133 mm[Hg] Jasbir jese Tebid pulse rate #2 58 [place] d blood pressure, espinoza tolic, second observation 76 mm[Hg] [place] d blood pressure, syst olic, second observation 143 mm[Hg] Una d oxygen saturation, oximetry 98 % Una d pulse rate 64 /min [place] Tebid blood pressure, diastolic 78 mm[Hg] Vi ctoria Tebid blood pressure, systolic 156 mm[Hg] Jasbir jese Tebid pulse rate #2 57 [place] d blood pressure, espinoza tolic, second observation 81 mm[Hg] [place] Tebid blood pressure, syst olic, second observation 134 mm[Hg] Una Ted oxygen saturation, oximetry 98 % [place] d pulse rate 61 /min [place] Tebid blood pressure, diastolic 80 mm[Hg] Vi ctoria Tebid blood pressure, systolic 132 mm[Hg] Jasbir jese Tebid blood pressure, diastolic 81 mm[Hg] Me tamir Bar[place] blood pressure, systolic 131 mm[Hg] Carol cristhian [place] Body Mass Index (Ratio) 33.83 kg/m2 Myrna silvia [place] pulse rate 74 /min Alaina Barger oxygen saturation, oximetry 96 % Alaina Barger respiratory rate E&M 15 /min Alaina Barger weight E&M 185 [lb_av] Alaina Barger height E&M 62 [in_i] Alaina Barger ALLERGIES Allergy Name Onset Date Reaction Criticality Status CODEINE Low Criticality active HISTORY OF MEDICATION USE Medication Status Instructions Dates Provider Indications Com ments Eliquis 5 mg tablet active Take 1 tablet by mouth twice a day Brando Fam MD warfarin 5 mg tablet completed 1 by mouth once a day as directed - Brando Fam MD ELIQUIS 5 MG ORAL TABLET completed 1 po bid - Brando Fam MD glimepiride 2 mg tablet active 1 tablet once a day Junito Turner omeprazole 20 mg capsule,delayed release(DR/EC) active 1 tablet once a day Junito Turner CARVEDILOL 3.125 MG ORAL TABLET completed One tab twice daily - Junito Turner RANEXA 500 MG ORAL TABLET EXTENDED RELEASE 12 HOUR completed ONE TAB. TWICE DAILY for chronic angina - Edis Rittre MD ASPIRIN 81 MG ORAL TABLET active 1 tablet once a day Edis Ritter MD atorvastatin 80 mg tablet active once a day Edis Ritter MD MECLIZINE HCL 12.5 MG ORAL TABLET completed once daily as needed - Junito Turner Fish Oil 300-1,000 mg capsule,delayed release(DR/EC) active 1 tablet once a day Alaina Barger lorazepam 0.5 mg tablet active Take 1 tablet by mouth three times a day Melina Castellon acetaminophen 325 mg tablet active every six hours as needed Edis Ritter MD ISOSORBIDE MONONITRATE ER 30 MG ORAL TABLET EXTENDED RELEASE 24 HOUR completed one tab. daily - Junito Turner ENALAPRIL MALEATE 2.5 MG ORAL TABLET completed ONE TAB. DAILY - Junito Turner SOCIAL HISTORY Date Observation Value Provider smoking status Never smoker Cielo Greene social history E&M Patient has n ever smoked. M arital Status: Single Tiffany milton: 7 O ccupation: Retired Smoking History: P atient has never smoked. Brando Fam MD social history reviewed E&M revi ewed - no changes required Brando Fam MD smoking status Never smoker Muna Ferrera social history E&M Patient has n ever smoked. M arital Status: Single Tiffany milton: 7 O ccupation: Retired Smoking History: P atient has never smoked. Brando Fam MD social history reviewed E&M revi ewed - no changes required Brando Fam MD smoking status Never smoker Jennifer Montoya social history E&M Patient has n ever smoked. M arital Status: Single Tiffany milton: 7 O ccupation: Retired Smoking History: P atient has never smoked. Brando Fam MD social history reviewed E&M revi ewed - no changes required Brando Fam MD smoking status Never smoker Kathy vargas social history E&M Patient has n ever smoked. M arital Status: Single Tiffany milton: 7 O ccupation: Retired Smoking History: P atient has never smoked. Brando Fam MD social history reviewed E&M revi ewed - no changes required Brando Fam MD smoking status Never smoker Kathy vargas social history E&M Patient has n ever smoked. M arital Status: Single Tiffany rose: 7 O ccupation: Retired Smoking History: P atient has never smoked. Brando Fam MD social history reviewed E&M revi ewed - no changes required Brando Fam MD smoking status Never smoker Kathy Leahy alicia social history E&M Patient has n ever smoked. M arital Status: Single Tiffany rose: 7 O ccupation: Retired Smoking History: P damian has never smoked. Brando Fam MD social history reviewed E&M revi ewed - no changes required Brando Fam MD smoking status Never smoker Junito Vasquez kelleymichael social history E&M Patient has n ever smoked. Smoking History: P atnicole has never smoked. Edis Ritter MD social history reviewed E&M revi ewed - no changes required Edis Ritter MD smoking status Never smoker Eids Ritter MD social history reviewed E&M revi ewed - no changes required Edvin Katz MD smoking status Never smoker Alaina norton FUNCTIONAL STATUS Date Observation Value Provider HRA, CV Assess/Plan, Angina (inactive) Management Plan continue current therapy Brando Fam MD HRA, CV Assess/Plan, Angina (inactive) Management Plan antianginal therapy Brando Fam MD HRA, CV Assess/Plan, Angina (inactive) Management Plan continue current therapy Brando Fam MD HRA, CV Assess/Plan, Angina (inactive) Management Plan antianginal therapy Brando Fam MD MENTAL STATUS Date Observation Value Provider energy level yes Una Tebid energy level yes Una Tebid energy level yes Una Tebid energy level yes Una Tebid energy level yes Una Tebid energy level yes Una Tebid energy level yes Una Tebid energy level yes Una Tebid energy level yes Una Tebid energy level yes Una Tebid energy level yes Una Tebid energy level yes Una Tebid energy level yes Una Tebid energy level yes Una Tebid energy level yes Una Tebid energy level yes Una Tebid energy level yes Una Tebid energy level yes Una Tebid energy level yes Una Tebid energy level yes Una Tebid energy level yes Una Tebid energy level yes Una Tebid energy level yes Una Tebid energy level no Una Tebid FAMILY HISTORY Family Member Condition Full Brother Family History of Avila dden Cardiac : Father Family History of Avila dden Cardiac : INSURANCE PROVIDERS Payer name Policy type / Coverage type [place] red green party ID [employer] H[employer] HMO [id number] ADVANCE DIRECTIVES Name Date DISCUSSED - NO DECISION MADE TREATMENT PLAN Date Name Performer [id number],B, Brando norton MD [id number],S, Brando norton MD [id number],S, Brando norton MD [id number],C,Needs ECHO Ra pam Fam MD [id number],W,needs regaden oson (has pacemaker) Brando Fam MD [id number],S, Brando norton MD [id number],S, Brando norton MD [id number],B, Brando norton MD [id number],S, Barndo norton MD [id number],S, Brando norton MD [id number],SBrando MD [id number],S, Brando norton MD [id number],S, Brando norton MD [id number],S, Brando norton MD [id number],N,S/P PPM Brando Fam MD Cardiology:Responds well to mecl izine Brando Fam MD Cardiology Brando Fam MD Cardiology Brando Fam MD Cardiology Brando Fam MD Cardiology Brando Fam MD Cardiology Brando Fam MD Cardiology Brando Fam MD Cardiology Brando Fam MD Cardiology:Needs ECHO Brando harper MD Cardiology:needs regadenoson (beck s pacemaker) Brando Fam MD Cardiology Brando Fam MD Cardiology Brando Fam MD Cardiology Brando Fam MD Cardiology Brando Fam MD Cardiology Brando Fam MD Cardiology follow up Brando lara MD Cardiology follow up Brando lara MD Cardiology follow up Brando lara MD Cardiology follow up Brando lara MD Cardiology follow up :S/P PPM Ra pam Fam MD Cardiology follow up Brando lara MD Cardiology follow up Brando lara MD Cardiology follow up :Can't afford Eliquis. Will switch to warfarin. Brando Fam MD Cardiology follow up :Atypical CP that seems stress/anxiety related. Increase ativan to 1 mg tid. Brando Fam MD Cardiology follow up Brando lara MD Cardiology follow up Brando lara MD Cardiology follow up Brando lara MD Cardiology follow up :Start Eliq uis. Brando Fam MD Cardiology follow up :Stress ada t normal. 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 Edis Ritter MD follow up Edvin zamorano MD follow up:This patie nt?s angina is disabling and in my opinion is not readily amenable to surgical intervention by PTCA or cardiac bypass because the patient's condition is inoperable, or at high risk of operative complications or post-operative failure. Orders: E - Medicare ([id number]-G0166) Her updated medication list for this problem includes: Carvedilol 3.125 Mg Oral Tabs (Carvedilol) ..... One tab twice daily Ranexa 500 Mg Tb12 (Ranolazine) ..... One tab. twice daily for chronic angina Aspirin 81 Mg Tabs (Aspirin) ..... One tab. daily Isosorbide Mononitrate Cr 30 Mg Tb24 (Isosorbide mononitrate) ..... One tab. daily Enalapril Maleate 2.5 Mg Tabs (Enalapril maleate) ..... One tab. daily Edvin Katz MD Date Name Stress Regadenoson Complete Echo Stress Regadenoson Complete Echo MRI, Other Aortic Abdominal Ult rasound Venous Doppler Bilat eral LE - Standing Arterial Duplex Bi-L chikiser EX [facility] - Medicare HISTORY OF PROCEDURES Procedure Date Procedure Name Provider Procedure Notes S tatus EKG Brando Fam MD complete d EKG Brando Fam MD complete d EKG Brando Fam MD complete d Regadenoson, 4 units Brando Fam MD completed Cardiolite, 2 units Brando Fam MD completed SPECT Images Brando Fam MD comple toby Stress EKG Brando Fam MD complete d Mobile Cardiac Telemetry - Tech Brando Fam MD completed Mobile Cardiac Telemetry - Prof Brando Fam MD completed EKG Brando Fam MD complete d EKG Edvin Katz MD comp leted
--- OUTSIDE RECORDS SUMMARY | 2024-11-12 14:34 | XMS_ITS | Referral Summary ---
Author Organization [facility] Address [address] [place] [address] Care Team Providers Care Biomedical Analytical Scientist Name Role Phone Jose J Bran MD Primary Care Provider [phone] Source Comments [facility],non-owned Affiliates and Associated Physician Practices is amultiple site organization consisting of ambulatory clinics and hospital sitesin [place], [place], [place] and [place]. This disclosure is being madepursuant to the Care Everywhere program and may not contain all information available regarding this patient. Last updated 18.[facility] Allergies No known active allergies Medications * [...] 07/22/2018 12:34 PM CDT Plan of Treatment Not on file Care Teams Biomedical Analytical Scientist Relationship Specialty Start Date End Date Jose J Bran MD [address] [place] [id number] PCP - General Internal Medicine 07/22/18
--- OUTSIDE RECORDS SUMMARY | 2024-11-12 14:34 | XMS_ITS | Continuity of Care Document ---
Author Organization [facility] Address [id number] [place] [address] [place] [address] Phone Care Team Providers Care Counselor Aide Name Role Phone Kimani Peña Unavailable Unavailable Procedures Procedure Date Eye Exam & Treatment Refraction BF Plastic Sphcyl Welcome To +/-4d .12-2d Frames Deluxe Scratch Resistant Coating UV Coat Post-op Follow-up Visit Post-op Follow-up Visit Remove Cataract, Insert Lens Office/outpatient Visit, Est Echo Exam Of Eye-Professional 8 Eye Exam & Treatment Advance Directives Directive Yes / No Effective Date File Name No Information Encounters Encounter Description Practice Location Reason(s) For Visit Diagnoses Date Provider Providers Copied on Encounter [facility], [address] [place] [address] [address], [place], [place], [id number], [place] tel:[phone] SEC [facility] No Information 2201 0 Casey Harman. [address] [place] , [address], [place], [address], [place]. tel:[phone] [facility], [address] [place] [address] [address], [place], [place], [id number], [place] tel:[phone] SEC [facility] No Information 200 8 [employer] . [address] [facility], [address], [place], [place], [id number], [place]. tel:[phone] Referring Provider: Jeff Aguero OD [facility], [address] [place], [place] [address], [place], [address]. tel:[phone] daniels Provider: Peyton Carpio, [address] [address], [place], [address]. tel:[phone] [facility], [address] [place] [address] [address], [place], [place], [id number], [place] tel:[phone] [facility] [place] No Information Apr-2 3-200 8 Aguero OD Jeff. [address] [place], [place] [address]ate [address] , [address], [place], [place], [facility], [place]. tel:[phone] Referring Provider: Kimani Canales, [address] [place], [place] [address]ate [address], [place], [place], [facility]. tel:[phone] [facility], [address] [place] [address] [address], [place], [place], [id number], [place] tel:[phone] [facility] [place] No Information Apr-0 4-200 8 Casey Harman. [facility] [address], [place], [place], [facility], [place]. tel:[phone] [facility], [address] [place] [address] [address], [place], [place], [address], [place] tel:[phone] [facility] No Information Apr-0 3-200 8 Casey Harman. [facility] [address], [place], [place], [facility], [place]. tel:[phone] Office/outpat ient Visit, Est [facility], [address] [place] [address] [address], [place], [place], [id number], [place] tel:[phone] [facility] [place] No Information Mar-1 4-200 8 Casey Harman. [facility] [address], [place], [facility], [place]. tel:[phone] Referring Provider: Kimani Canales, Din[address] [facility] [place] [address], [place], [address]. tel:[phone] [facility], [address], [place], [place], [address], [place] tel:[phone] [facility] No Information 200 7 Casey Harman. [address] [facility] , [address], [place], [address], [place]. tel:[phone] Family History Family Member Type Diagnosis Age At Onset No Information Payers Payer name Insurance type Covered green party ID Liana victor(s) [employer] Plan CI [id number] Social History Type Description Quantity Date Captured Comments Sex Female Smoking Status No Information Chief Complaint And Reason For Visit No Information Reason For Referral Reason For Referral No Information History Of Present Illness Encounter Date Complaint History Of Prese nt Illness No Information Functional Status Date Functional Assessmen t No Information Instructions Date Instruction Additional Infor mation No Information Assessments Type Assessment Date No Information Patient Care Teams Name Effective Dates (start - stop) Status Members No Information
--- OUTSIDE RECORDS SUMMARY | 2024-11-12 14:34 | XMS_ITS | Patient Health Summary ---
Author Organization [facility] Address [address] [place] [address] Care Team Providers Care Resident Care Technician Name Role Phone Jose J Bran MD Primary Care Provider [phone] Note from [facility],non-owned Affiliates and Associated Physician Practices is amultiple site organization consisting of ambulatory clinics and hospital sitesin [place], [place], [place] and [place]. This disclosure is being madepursuant to the Care Everywhere program and may not contain all information available regarding this patient. Last updated 18.[facility] Allergies No known active allergies Medications * Be aware that medications may not be up to date on this document. Alwaysverify current medications with the patient. * lisinopril (PRINIVIL; ZESTRIL) 10 MG tablet Take 10 mg by mouth once daily * predniSONE (DELTASONE) 20 MG tablet(Started 07/22/2018) Take three pills for the first five days, then two pills for three days, then one pill for three days * Kdzjjpoq-Miywkmfhzgwf-QZY 400 (VISINE TEARS) 0.2-0.2-1 %(Started 07/22/2018) Instill 1 drop into right eye 4 times daily Active Problems Problem Noted Date Diagnosed Date [...] Mass Index 35.9 07/22/2018 12:34 PM CDT Procedures * CARDIAC PROCEDURE ORDER(Performed 08/24/2018) * MRI IAC WWO CONTRAST(Performed 07/22/2018) Performed for Facial droop * CT HEAD WO CONTRAST(Performed 07/22/2018) Performed for Facial droop * XR CHEST 1VW(Performed 07/22/2018) Performed for Facial droop * PTT [facility](Performed 07/22/2018) * PT-INR [facility](Performed 07/22/2018) * BASIC METABOLIC PANEL (CALCIUM TOTAL)(Performed 07/22/2018) * CBC W AUTO DIFFERENTIAL(Performed 07/22/2018) * EKG 12-LEAD(Performed 07/22/2018) Performed for Facial droop * LAB MICROBIOLOGY - HPF HISTORICAL(Performed 09/14/2011) Results * CARDIAC PROCEDURE ORDER (08/24/2018 9:51 AM INSTALLMENT LOAN COLLECTOR) Narrative 08/24/2018 9:51 AM INSTALLMENT LOAN COLLECTOR Ordered by an unspecified provider. Scanned Document CARDIAC SERVICES ORD ERABLES * MRI IAC WWO CONTRAST (07/22/2018 3:09 PM CDT) Anatomical Region Laterality Modality Head Magnetic Resonan ce 07/22/2018 3:02 PM CDT Impressions 07/22/2018 3:31 PM CDT IMPRESSION: 1. No MR evidence of abnormal signal or enhancement along the course of the right facial nerve. No acute MR abnormality is identified. IDr. NOAH have personally reviewed and interpreted this examination/study. This report was electronically signed by NOAH COREAS on 07/22/2018 3:31 PM . Narrative 07/22/2018 3:31 PM CDT EXAMINATION: Magnetic resonance imaging (MRI) of the brain without and with contrast HISTORY: Right facial nerve palsy and right ear pain COMPARISON: Head CT dated 07/22/2018 and an MRI of the brain dated 09/14/2011. TECHNIQUE: MRI of the brain was performed prior to and following the uneventful administration of 9 mL Gadavist intravenous gadolinium contrast according to a dedicated internal auditory canal (IAC) protocol. This included detailed coronal and axial imaging through the intracranial course of cranial nerves five through eight. FINDINGS: The maco, cerebellopontine angles and internal auditory canals appear normal. No enhancing lesions are identified along the course of the cranial nerve 7/8 complexes. The signal within the bony labyrinth appears normal on both sides. The mastoids appear clear. No evidence of acute or chronic hemorrhage is identified. No evidence of acute cerebral infarction is seen. There is mild age-appropriate cerebral volume loss with associated ex vacuo ventricular dilatation. No mass effect or midline shift is seen. A small focus of subcortical white matter FLAIR hyperintensity in the right insula is nonspecific, but can be seen in the setting of chronic small vessel disease, given the patient's age. No other significant white matter changes are identified. There are no enhancing lesions. The corpus callosum and sella appear normal. The posterior fossa and brainstem appear normal. Other than bilateral cataract extractions, the orbital contents, paranasal sinuses, and mastoids appear normal. Procedure Note Noah Coreas MD - 07/22/2018 EXAMINATION: Magnetic resonance imaging (MRI) of the brain without and with contrast HISTORY: Right facial nerve palsy and right ear pain COMPARISON: Head CT dated 07/22/2018 and an MRI of the brain dated 09/14/2011. TECHNIQUE: MRI of the brain was performed prior to and following the uneventful administration of 9 mL Gadavist intravenous gadoliniumcontrast according to a dedicated internal auditory canal (IAC) protocol. This included detailed coronal and axial imaging through the intracranial course of cranial nerves five through eight. FINDINGS: The maco, cerebellopontine angles and internal auditory canals appear normal. No enhancing lesions are identified along the course of the cranial nerve 7/8 complexes. The signal within the bony labyrinthappears normal on both sides. The mastoids appear clear. No evidence of acute or chronic hemorrhage is identified. No evidence of acute cerebral infarction is seen. There is mild age-appropriatecerebral volume loss with associated ex vacuo ventricular dilatation. No mass effect or midline shift is seen. A small focus of subcortical whitematter FLAIR hyperintensity in the right insula is nonspecific, but can be seen in the setting of chronic small vessel disease, given the patient's age. No other significant white matter changes are identified. There are no enhancing lesions. The corpus callosum and sella appear normal. The posterior fossa and brainstem appear normal. Other than bilateral cataract extractions, the orbital contents, paranasal sinuses, and mastoids appear normal. IMPRESSION: 1. No MR evidence of abnormal signal or enhancement along the course of the right facial nerve. No acute MR abnormality is identified. Dr. NOAH Cruz have personally reviewed and interpreted this examination/study. This report was electronically signed by NOAH COREAS on 07/22/20183:31 PM . Tyler Rosenberg MD MR ORDERABLES * CT HEAD WO CONTRAST (07/22/2018 1:42 PM CDT) Anatomical Region Laterality Modality Head Computed Tomogra phy 07/22/2018 1:54 PM CDT Impressions 07/22/2018 4:25 PM CDT IMPRESSION: 1.No acute intracranial hemorrhage, mass effect, or edema. 2.Mild generalized volume loss. This report was approved by Ranjith Mayberry on 07/22/2018 3:[address] KAREN Cruz have personally reviewed and interpreted this examination/study. This report was electronically signed by KAREN FELIPE on 07/22/2018 4:25 PM . Narrative 07/22/2018 4:25 PM CDT EXAMINATION: Computed tomography (CT) of the head without contrast HISTORY: Two day history of right cranial nerve VII palsy. TECHNIQUE: CT of the head was performed without contrast according to standard protocol. FINDINGS: Comparison is made with a CT of the head dated 09/14/2011. No acute intra- or extra-axial fluid collections are identified. Mild prominence of the subarachnoid spaces overlying the cerebral convexities, likely representing generalized volume loss volume loss.The ventricles are nondilated. The basilar cisterns are patent. No mass effect or midline shift is seen. The vivas-white matter differentiation is normal. The left maxillary sinus small, likely developmental. Other than bilateral cataract extractions, the visualized portions of the orbits, paranasal sinuses, and mastoids appear normal. No acute fracture is identified. There is calcification of the left tonsil. There is a nonspecific sclerotic focus in the maxilla, likely representing a bone island. Procedure Note Karen Felipe MD - 07/22/2018 EXAMINATION: Computed tomography (CT) of the head without contrast HISTORY: Two day history of right cranial nerve VII palsy. TECHNIQUE: CT of the head was performed without contrast according to standard protocol. FINDINGS: Comparison is made with a CT of the head dated 09/14/2011. No acute intra- or extra-axial fluid collections are identified. Mild prominence of the subarachnoid spaces overlying the cerebralconvexities, likely representing generalized volume loss volume loss.The ventriclesare nondilated. The basilar cisterns are patent. No mass effect or midline shift is seen. The vivas-white matter differentiation is normal. The left maxillary sinus small, likely developmental. Other than bilateralcataract extractions, the visualized portions of the orbits, paranasal sinuses,and mastoids appear normal. No acute fracture is identified. There is calcification of the left tonsil. There is a nonspecific sclerotic focus in the maxilla, likely representing a bone island. IMPRESSION: 1.No acute intracranial hemorrhage, mass effect, or edema. 2.Mild generalized volume loss. This report was approved by Ranjith Mayberry on 07/22/2018 3:[address] KAREN Cruz have personally reviewed and interpreted this examination/study. This report was electronically signed by KAREN FELIPE on 07/22/2018 4:25 PM . Tyler Rosenberg MD CT ORDERABLES * XR CHEST 1VW (07/22/2018 1:11 PM CDT) Anatomical Region Laterality Modality Chest Radiographic Kasia ging 07/22/2018 1:28 PM CDT Impressions 07/22/2018 3:32 PM CDT IMPRESSION: Mild left basilar opacity may represent atelectasis/airspace disease. Dictated by Sara Erickson MD (residential carpenter). Dr. HOSEA Cruz M.D. have personally reviewed and interpreted this examination/study. This report was electronically signed by HOSEA SALCEDO M.D. on 07/22/2018 3:32 PM . Narrative 07/22/2018 3:32 PM CDT EXAMINATION: XR CHEST 1VW HISTORY: Concern for stroke COMPARISON: Chest radiograph from 09/13/2011 FINDINGS: Mild left basilar opacity may represent atelectasis/airspace disease. There is no pleural effusion or pneumothorax. The cardiomediastinal silhouette is normal for portable technique. The visible bony thorax is intact. Procedure Note Hosea Salcedo MD - 07/22/2018 EXAMINATION: XR CHEST 1VW HISTORY: Concern for stroke COMPARISON: Chest radiograph from 09/13/2011 FINDINGS: Mild left basilar opacity may represent atelectasis/airspace disease. There is no pleural effusion or pneumothorax. The cardiomediastinal silhouette is normal for portable technique. The visible bony thorax is intact. IMPRESSION: Mild left basilar opacity may represent atelectasis/airspace disease. Dictated by Sara Erickson MD (residential carpenter). I, Dr. HOSEA SALCEDO M.D. have personally reviewed and interpreted this examination/study. This report was electronically signed by HOSEA SALCEDO M.D. on 07/22/2018 3:32 PM . Tyler Rosenberg MD DIAGNOSTIC IMAGING O RDERABLES * PTT [facility] (07/22/2018 12:55 PM CDT) APTT 25.1 23.0 - 38.4 Seconds 07/22/2018 1:18 PM CDT [facility] Comment: Suggested therapeutic range for full dose I.V. heparin therapy for venous thromboembolism is 66.0-91.0 seconds. Blood BLOOD SPECIMEN / Unknown 07/22/2018 12:55 PM CDT 07/22/2018 12:55 PM CDT Tyler Rosenberg MD LAB - COAGULATION OR DERABLES [facility] [address] [phone] * PT-INR [facility] (07/22/2018 12:55 PM CDT) PT 12.6 12.1 - 14.8 Seconds 07/22/2018 1:17 PM [facility] INR 1.0 See Comment 07/22/2018 1:17 PM [facility] Comment: The suggested therapeutic range for standard coumadin (warfarin) therapy is an INR of 2.0-3.0. For high-risk patients (Mechanical Mitral Valve Prosthesis, etc.), the suggested prophylactic therapeutic range is an INR of 2.5-3.5. Blood BLOOD SPECIMEN / Unknown 07/22/2018 12:55 PM CDT 07/22/2018 12:55 PM CDT Tyler Rosenberg MD LAB - COAGULATION OR DERABLES Performing Organization Address City/State/[facility] Co de Phone Number [facility] [address] [place] [address] * (ABNORMAL) CBC W AUTO DIFFERENTIAL (07/22/2018 12:50 PM CDT) WBC 6.0 3.5 - 10.5 10 3/uL 07/22/2018 12:54 PM [facility] RBC 5.13(H) 3.90 - 5.00 10 6/uL 07/22/2018 12:54 PM [facility] Hemoglobin 15.6(H) 12.0 - 15.5 g/dL 07/22/2018 12:54 PM [facility] Hematocrit 46.3(H) 35.0 - 45.0 % 07/22/2018 12:54 PM [facility] MCV 90.3 81.0 - 97.0 fL 07/22/2018 12:54 PM [facility] MCH 30.4 28.0 - 34.0 pg 07/22/2018 12:54 PM [facility] MCHC 33.7 32.0 - 36.0 g/dL 07/22/2018 12:54 PM [facility] Platelet Count 199 150 - 400 10 3/uL 07/22/2018 12:54 PM [facility] RDW-SD 46.2 36.0 - 50.0 fL 07/22/2018 12:54 PM [facility] RDW-CV 14.0 11.2 - 14.8 % 07/22/2018 12:54 PM [facility] MPV 10.9 9.3 - 12.8 fL 07/22/2018 12:54 PM [facility] nRBC Absolute 0.00 0 10 3/uL 07/22/2018 12:54 PM [facility] nRBC Auto 0.0 0 /100 WBC 07/22/2018 12:54 PM [facility] Neutrophils % 43.9 35.0 - 70.0 % 07/22/2018 12:54 PM [facility] Lymphocytes % 46.6 19.7 - 55.1 % 07/22/2018 12:54 PM [facility] Monocytes % 6.7 3.0 - 15.0 % 07/22/2018 12:54 PM [facility] Eosinophils % 2.0 0.0 - 6.0 % 07/22/2018 12:54 PM [facility] Basophil % 0.8 0.0 - 1.5 % 07/22/2018 12:54 PM [facility] Neutrophils Absolute 2.6 1.6 - 7.0 10 3/uL 07/22/2018 12:54 PM [facility] Lymphocyte Absolute 2.8 0.8 - 2.9 10 3/uL 07/22/2018 12:54 PM [facility] Monocytes Absolute 0.40 0.14 - 0.66 10 3/uL 07/22/2018 12:54 PM [facility] Eosinophils Absolute 0.12 0.00 - 0.22 10 3/uL 07/22/2018 12:54 PM [facility] Basophils Absolute 0.05 0.00 - 0.06 10 3/uL 07/22/2018 12:54 PM [facility] Immature Granulocytes % 0.2 0.0 - 1.0 % 07/22/2018 12:54 PM [facility] Blood BLOOD SPECIMEN / Unknown Venipuncture / Unknown 07/22/2018 12:50 PM CDT 07/22/2018 12:50 PM CDT Tyler Rosenberg MD LAB - HEMATOLOGY ORD ERABLES [address] [phone] * (ABNORMAL) BASIC METABOLIC PANEL (CALCIUM TOTAL) (07/22/2018 12:50 PM CDT) BUN 21 7 - 26 mg/dL 07/22/2018 1:15 PM [facility] Creatinine 1.0 0.6 - 1.2 mg/dL 07/22/2018 1:15 PM [facility] Sodium 140 136 - 145 mmol/L 07/22/2018 1:15 PM [facility] Potassium 3.6 3.5 - 4.5 mmol/L 07/22/2018 1:15 PM [facility] Chloride 103 98 - 107 mmol/L 07/22/2018 1:15 PM [facility] CO2 28 22 - 29 mmol/L 07/22/2018 1:15 PM [facility] Glucose 196(H) 70 - 115 mg/dL 07/22/2018 1:15 PM [facility] Calcium 9.1 8.4 - 10.2 mg/dL 07/22/2018 1:15 PM [facility] Anion Gap 13 8 - 18 07/22/2018 1:15 PM [facility] BUN/Creatinine Ratio 21 7 - 23 07/22/2018 1:15 PM [facility] Osmolality Calculated 298 270 - 300 mOsm/kg 07/22/2018 1:15 PM [facility] eGFR 53(L) >60 mL/min/1.7 3 m2 07/22/2018 1:15 PM [facility] Blood BLOOD SPECIMEN / Unknown Venipuncture / Unknown 07/22/2018 12:50 PM CDT 07/22/2018 12:50 PM CDT Tyler Rosenberg MD LAB - CHEMISTRY ORDClaire WADDELL [address] [phone] * EKG 12-LEAD (07/22/2018 12:37 PM CDT) Ventricular Rate 66 BPM [facility] Atrial Rate 66 BPM [facility] P-R Interval 176 ms [facility] QRS Duration ms 96 ms [facility] Q-T Interval ms 394 ms [facility] MUSE QTC Calculation (Bezet) 413 ms [facility] Calculated P [place] 43 degrees [facility] Calculated R [place] -36 degrees [facility] Calculated T [place] 54 degrees [facility] Interpretation EKG SINUS RHYTHM WITH FREQUENT PREMATURE ATRIAL COMPLEXES LEFT AXIS DEVIATION LEFT VENTRICULAR HYPERTROPHY WITH REPOLARIZATION ABNORMALITY ABNORMAL ECG NO PREVIOUS ECGS AVAILABLE Confirmed by MD Elma, Valentina ([id number]), industrial editor Devan Diamond ([id number]) on 08/16/2018 10:06:06 PM [facility] MUSE 07/22/2018 12:3 7 PM CDT 08/16/2018 10:06 PM INSTALLMENT LOAN COLLECTOR Tyler Rosenberg MD ECG ORDERABLES Performing Organization Address City/[facility]/ZIP Co de Phone Number [facility] MUSE * LAB MICROBIOLOGY - HPF HISTORICAL (09/14/2011 7:28 AM INSTALLMENT LOAN COLLECTOR) 09/14/2011 7:28 AM INSTALLMENT LOAN COLLECTOR Narrative [facility] - 09/14/2011 7:28 AM INSTALLMENT LOAN COLLECTOR Ana Maria Bello MD LAB - MICROBIOLOGY O RDERABLES [facility] Care Teams Resident Care Technician Relationship Specialty Start Date End Date Jose J Bran MD [facility] [place] [address] PCP - General Internal Medicine 07/22/18
== END 2024-11-12 17:15 | disposition expired ==
PROVIDERS: Emergency Provider Emergency Medicine; PCP Internal Medicine
DX: G89.3 Neoplasm related pain (acute) (chronic) (principal); C34.90 Malignant neoplasm of unspecified part of unspecified bronchus or lung; C79.9 Secondary malignant neoplasm of unspecified site; Z51.5 Encounter for palliative care; G47.33 Obstructive sleep apnea (adult) (pediatric); E78.5 Hyperlipidemia, unspecified; I48.0 Paroxysmal atrial fibrillation; E11.9 Type 2 diabetes mellitus without complications; I50.30 Unspecified diastolic (congestive) heart failure; I11.0 Hypertensive heart disease with heart failure
CPT/HCPCS: 96374; 96375; 96376; 99284; J2060; J2270